=== PATIENT | male | born 1990 | race Caucasian/White ===

== ENCOUNTER 2016-11-17 01:29 | Observation (INO) ==
[2016-11-17] MEDS ORDERED: Midazolam HCl 4 MG/2 ML Oral Syringe PO ONE (03:02)
[2016-11-17 03:19] LABS: Bilirubin,Urine Negative (Negative); Blood,Urine Small (Negative); Clarity,Urine Clear (Clear); Color,Urine Yellow (Yellow); Glucose,Urine (UA) Normal (Normal); Ketones,Urine 15 mg/dL (Negative); Leukocyte Esterase,Urine Negative (Negative); Nitrite,Urine Negative (Negative); Protein,Urine Negative (Neg-Trace); Specific Gravity,Urine 1.025 (1.010-1.025); Urobilinogen,Urine Normal (Normal)
[2016-11-17 03:21] LABS: Bacteria,Urine None Seen per hpf (None-Few); Hyaline Casts,Urine None Seen per lpf (None-Few); Squamous Epithelial Cell,Urine Many per lpf (None-Few); WBC,Urine 0-3 per hpf (0-3)
[2016-11-17 03:26] LABS: Amphetamine Screen,Urine Positive ng/mL (Cutoff=1000); Barbiturate Screen,Urine Negative ng/mL (Cutoff=200); Benzodiazepines Screen,Urine Negative ng/mL (Cutoff=200); Cannabinoid Screen,Urine Positive ng/mL (Cutoff = 50); Cocaine Screen,Urine Negative ng/mL (Cutoff= 300); Opiate Screen,Urine Negative ng/mL (Cutoff=300); Phencyclidine Screen,Urine Negative ng/mL (Cutoff=25)
[2016-11-17 03:55] LABS: Basophils % 0.5 %; Eosinophils % 0.3 %; Hematocrit 41.6 % (37.5-50.1); Hemoglobin 13.4 g/dL (12.9-16.9); Immature Granulocytes % 0.3 % (0-4); Lymphocytes % 30.7 %; Mean Corpuscular HGB Conc 32.2 g/dL (31.6-35.5); Mean Corpuscular Hemoglobin 27.3 pg (28.0-33.3); Mean Corpuscular Volume 84.7 fL (83.0-100.0); Mean Platelet Volume 9.9 fL (9.4-12.4); Monocytes # 0.6 K/mcL (0.0-1.3); Monocytes % 8.5 %; Neutrophils # 3.9 K/mcL (1.6-8.9); Platelet Count 276 K/mcL (140-400); Red Blood Count 4.91 M/mcL (4.19-5.50); Red Cell Distribution Width 14.2 % (11.5-14.5); Segmented Neutrophils % 59.7 %
[2016-11-17 04:14] LABS: BUN/Creatinine Ratio 12 (6-26); Blood Urea Nitrogen 14 mg/dL (8-26); Calcium 9.6 mg/dL (8.6-10.8); Carbon Dioxide 25 mEq/L (19-29); Chloride 103 mEq/L (98-109); Glucose 214 mg/dL (70-99); Osmolality,Calculated 293 (280-300); Potassium 3.8 mEq/L (3.5-4.5); Sodium 138 mEq/L (136-145); eGFR For African Americans > 60 (> 60); eGFR For Non-African Americans > 60 (> 60)
[2016-11-17 04:16] LABS: Acetaminophen < 1.0 mcg/mL (10-30); Ethanol < 10 mg/dL (0-10); Salicylate < 5.0 mg/dL (15-30)
--- NOTE | 2016-11-17 06:13 | Emergency Department Note ---
Disposition Clinical Impression: Homicidal ideation, Medical clearance for psychiatric admission Psychosis Qualifiers: Psychosis type: other Qualified Code(s): F28 - Other psychotic disorder not due to a substance or known physiological condition Disposition: Transfer Psychiatric Hosp Condition: Fair Referrals: NO,PCP [Primary Care Provider] - Forms: ED Satisfaction Letter, Work/School Release General Adult HPI - General Chief complaint: ED General Medical Stated complaint: Smoked weed, now is "Trippin" Time Seen by Provider: 11/17/16 02:25 Source: EMS Limitations: no limitations Nursing Notes Reviewed: Yes Vital Signs Reviewed: Yes - History of Present Illness HPI Narrative: Patient here for evaluation of agitation and homicidal ideation. Patient states that he has smoked weed and then methamphetamines. Patient states that he is "tripping". Patient feels paranoid and states that they are out to get him. He is about to "mess things up" before they get to him. He feels that they are out to hurt him and his family. He is going to kill them before he gets injured. Pain Scale: 0 - Related Data Home Medications Medication Instructions Recorded Confirmed Buprenorphine HCl/Naloxone HCl 1 each SL 04/18/16 [Suboxone 2 mg-0.5 mg Sl Film] Gabapentin [Neurontin] 300 mg PO TID 04/18/16 04/18/16 HydrOXYzine Pamoate [Vistaril] 50 mg PO 04/18/16 TraZODone 100 mg PO HS 04/18/16 04/18/16 Allergies Allergy/AdvReac Type Severity Reaction Status Date / Time Penicillins Allergy Rash Verified 11/17/16 01:44 Review of Systems: CONSTITUTIONAL: No weight loss, fever, chills, weakness or fatigue. HEENT: Eyes: No visual changes. Ears, Nose, Throat: No hearing loss, difficulty talking or unable to swallow. SKIN: No rash or itching. CARDIOVASCULAR: No chest pain, chest pressure or chest discomfort. No palpitations or edema. RESPIRATORY: No shortness of breath, cough or sputum. GASTROINTESTINAL: No anorexia, nausea, vomiting or diarrhea. No abdominal pain or blood. GENITOURINARY: No burning on urination or hematuria. NEUROLOGICAL: No headache, dizziness, syncope, paralysis, ataxia, numbness or tingling in the extremities. No change in bowel or bladder control. MUSCULOSKELETAL: No muscle pain, back pain, joint pain or stiffness. Psych: Agitated, homicidal ideation Past Medical History - Past Medical History Medical history: Reports: asthma, other Surgical history: Reports: no surgical history Psychiatric history: Reports: previous psychiatric hospitalization - Social History Smoking Status: Current every day smoker Smokeless Tobacco Status: Yes Alcohol use: Reports: occasionally Drug use: Reports: cocaine, opiates, marijuana, methamphetamine, IVDU Physical Exam General appearance: NAD, conversant Eyes: anicteric sclerae, moist conjunctivae; no lid-lag; PERRL HENT: Atraumatic; oropharynx clear with moist mucous membranes Neck: Normal appearance; Trachea midline Chest: Symmetrical chest rise; No respiratory distress Extremities: No peripheral edema or extremity tenderness Skin: Normal temperature, turgor and texture; no rash, ulcers or subcutaneous nodules Psych: Agitated Neuro: Awake and alert and oriented 3 - General Limitations: no limitations General appearance: alert, anxious Course - Reevaluation(s) Reevaluation #1: Patient agitating staying he is going to "mess things up". Patient given 2 mg of Versed. Reevaluation #2: 1A called. Patient resting comfortably in bed. Vital Signs Temperature 97.8 F 11/17/16 01:39 Pulse Rate 82 11/17/16 01:39 Respiratory Rate 20 11/17/16 01:39 Blood Pressure 125/81 11/17/16 01:39 O2 Sat by Pulse Oximetry 96 11/17/16 01:39 Temperature 97.9 F 11/17/16 05:58 Pulse Rate 73 11/17/16 05:58 Respiratory Rate 14 11/17/16 05:58 Blood Pressure 111/61 11/17/16 05:58 O2 Sat by Pulse Oximetry 99 11/17/16 05:58 Oxygen Delivery Oxygen Delivery Room Air Medical Decision Making - Lab Data Result diagrams: 11/17/16 03:44 11/17/16 03:44 Lab Results 11/17/16 11/17/16 11/17/16 Range/Units 02:30 02:30 03:44 WBC 6.6 (4.3-11.1) K/mcL RBC 4.91 (4.19-5.50) M/mcL Hgb 13.4 (12.9-16.9) g/dL Hct 41.6 (37.5-50.1) % MCV 84.7 (83.0-100.0) fL MCH 27.3 L (28.0-33.3) pg MCHC 32.2 (31.6-35.5) g/dL RDW 14.2 (11.5-14.5) % Plt Count 276 (140-400) K/mcL MPV 9.9 (9.4-12.4) fL Immature Gran % 0.3 (0-4) % Seg Neutrophils % 59.7 % Lymphocytes % 30.7 % Monocytes % 8.5 % Eosinophils % 0.3 % Basophils % 0.5 % Neutrophils # 3.9 (1.6-8.9) K/mcL Lymphocytes # 2.0 (0.6-4.6) K/mcL Monocytes # 0.6 (0.0-1.3) K/mcL Eosinophils # 0.0 (0.0-0.6) K/mcL Basophils # 0.0 (0.0-0.2) K/mcL Sodium (136-145) mEq/L Potassium (3.5-4.5) mEq/L Chloride (98-109) mEq/L Carbon Dioxide (19-29) mEq/L BUN (8-26) mg/dL Creatinine (0.72-1.25) mg/dL Est GFR ( Amer) (> 60) Est GFR (Non-Af Amer) (> 60) BUN/Creatinine Ratio (6-26) Glucose (70-99) mg/dL Calculated Osmolality (280-300) Calcium (8.6-10.8) mg/dL Urine Color Yellow (Yellow) Urine Clarity Clear (Clear) Urine pH 6.0 (5.0-8.0) pH Units Ur Specific [place] 1.025 (1.010-1.025) Urine Protein Negative (Neg-Trace) mg/dL Urine Glucose (UA) Normal (Normal) mg/dL Urine Ketones 15 H (Negative) mg/dL Urine Blood Small H (Negative) Urine Nitrite Negative (Negative) Urine Bilirubin Negative (Negative) Urine Urobilinogen Normal (Normal) mg/dL Ur Leukocyte Esterase Negative (Negative) Urine Microscopic RBC 3-5 H (0-3) per hpf Urine Microscopic WBC 0-3 (0-3) per hpf Ur Squamous Epith Cells Many H (None-Few) per lpf Urine Bacteria None Seen (None-Few) per hpf Hyaline Casts None Seen (None-Few) per lpf Salicylates (15-30) mg/dL Urine Opiates Screen Negative (Xlvtzu=564) ng/mL Acetaminophen (10-30) mcg/mL Ur Barbiturates Screen Negative (Ihilxt=677) ng/mL Ur Phencyclidine Scrn Negative (Cutoff=25) ng/mL Ur Amphetamines Screen Positive H (Bhkzyt=1927) ng/mL U Benzodiazepines Scrn Negative (Xpgpjr=189) ng/mL Urine Cocaine Screen Negative (Cutoff= 300) ng/mL U Marijuana (THC) Screen Positive H (Cutoff = 50) ng/mL Ethyl Alcohol (0-10) mg/dL 11/17/16 Range/Units 03:44 WBC (4.3-11.1) K/mcL RBC (4.19-5.50) M/mcL Hgb (12.9-16.9) g/dL Hct (37.5-50.1) % MCV (83.0-100.0) fL MCH (28.0-33.3) pg MCHC (31.6-35.5) g/dL RDW (11.5-14.5) % Plt Count (140-400) K/mcL MPV (9.4-12.4) fL Immature Gran % (0-4) % Seg Neutrophils % % Lymphocytes % % Monocytes % % Eosinophils % % Basophils % % Neutrophils # (1.6-8.9) K/mcL Lymphocytes # (0.6-4.6) K/mcL Monocytes # (0.0-1.3) K/mcL Eosinophils # (0.0-0.6) K/mcL Basophils # (0.0-0.2) K/mcL Sodium 138 (136-145) mEq/L Potassium 3.8 (3.5-4.5) mEq/L Chloride 103 (98-109) mEq/L Carbon Dioxide 25 (19-29) mEq/L BUN 14 (8-26) mg/dL Creatinine 1.15 (0.72-1.25) mg/dL Est GFR ( Amer) > 60 (> 60) Est GFR (Non-Af Amer) > 60 (> 60) BUN/Creatinine Ratio 12 (6-26) Glucose 214 H (70-99) mg/dL Calculated Osmolality 293 (280-300) Calcium 9.6 (8.6-10.8) mg/dL Urine Color (Yellow) Urine Clarity (Clear) Urine pH (5.0-8.0) pH Units Ur Specific [place] (1.010-1.025) Urine Protein (Neg-Trace) mg/dL Urine Glucose (UA) (Normal) mg/dL Urine Ketones (Negative) mg/dL Urine Blood (Negative) Urine Nitrite (Negative) Urine Bilirubin (Negative) Urine Urobilinogen (Normal) mg/dL Ur Leukocyte Esterase (Negative) Urine Microscopic RBC (0-3) per hpf Urine Microscopic WBC (0-3) per hpf Ur Squamous Epith Cells (None-Few) per lpf Urine Bacteria (None-Few) per hpf Hyaline Casts (None-Few) per lpf Salicylates < 5.0 L (15-30) mg/dL Urine Opiates Screen (Hwifih=678) ng/mL Acetaminophen < 1.0 L (10-30) mcg/mL Ur Barbiturates Screen (Avdtia=309) ng/mL Ur Phencyclidine Scrn (Cutoff=25) ng/mL Ur Amphetamines Screen (Ymbosh=5226) ng/mL U Benzodiazepines Scrn (Mdsqsa=286) ng/mL Urine Cocaine Screen (Cutoff= 300) ng/mL U Marijuana (THC) Screen (Cutoff = 50) ng/mL Ethyl Alcohol < 10 (0-10) mg/dL Attestation Statement - Attestation Attestation: I personally interviewed and examined this patient and my medical decision- making was reviewed with the ED Resident Physician, Dr. Lindsey. I agree with the documented findings, disposition and treatment plan as described except to the extent set forth below. Pt with a history of polysubstance abuse who presents to the emergency department today with agitation and homicidal ideation. Patient used meth and smoked weed prior to arrival to the ED. Patient was mildly agitated on arrival and we did administer oral sedation. Vital signs are stable. Patient denies any physical complaints. I agree with physical exam findings as documented. Labs were obtained and patient was medically cleared for psychiatric evaluation by [facility]. They are currently at bedside evaluating the patient. Decided to admit the patient for further psychiatric evaluation and treatment. Patient was placed on a psych cold and a pink slip will be signed and placed on the chart.
[2016-11-17] MEDS ORDERED: *HR* LORazepam 1 MG TABLET PO ONE (07:55)
[2016-11-17] MEDS ORDERED: traZODone 50 MG TABLET PO PRN (14:09)
[2016-11-17] MEDS ORDERED: *HR* LORazepam 2 MG/ML VIAL IM PRN (14:09)
[2016-11-17] MEDS ORDERED: Mag Hydrox/Al Hydrox/Simeth 30 ML UDC PO PRN (14:09)
[2016-11-17] MEDS ORDERED: Haloperidol Lactate 5 MG/ML VIAL IM PRN (14:09)
[2016-11-17] MEDS ORDERED: MOM Conc 10 ML UD.LIQ PO PRN (14:09)
[2016-11-17] MEDS ORDERED: Ibuprofen 400 MG TABLET PO PRN (14:09)
[2016-11-17] MEDS: *HR* LORazepam 1 MG TABLET PO PRN ×2 (16:01→20:43)
[2016-11-18 10:19] VITALS: BP 125/72
--- NOTE | 2016-11-18 10:54 | Psychiatry History & Physical ---
Date of Encounter: 11/18/16 Time of Encounter: 10:30 History of Present Illness Medicare Admission Attestation: For traditional Medicare patients the provided hospital inpatient services are reasonable and necessary and in the case of services not specified as inpatient -only under 42 CFR 419.22 (n), that they are appropriately provided as inpatient services in accordance 42 CFR 412.3. For Critical Access Hospital the patient may reasonably be expected to be discharged or transferred to a hospital within 96 hours after admission to the Critical Access Hospital. Admitted From: Emergency Dept History of Present Illness: Mr. Conrad is a 26 year old male Past Med Surg Social Fam HX - Past Medical History Medical history: asthma, other - Past Surgical History Surgical History: no surgical history - Social History Smoking Status: Current every day smoker Smokeless Tobacco Status: Yes Alcohol use: occasionally Drug use: cocaine, opiates, marijuana, methamphetamine, IVDU Medications & Allergies Buprenorphine HCl/Naloxone HCl [Suboxone 2 mg-0.5 mg Sl Film] 1 each SL [History] Gabapentin [Neurontin] 300 mg PO TID 04/18/16 [History] HydrOXYzine Pamoate [Vistaril] 50 mg PO 04/18/16 [History] TraZODone 100 mg PO HS 04/18/16 [History] Allergies Penicillins Allergy (Verified 11/17/16 01:44) Rash Results - Vital Signs Vital signs: Temp Pulse Resp BP Pulse Ox 97.8 F 69 18 125/72 99 11/18/16 09:00 11/18/16 09:00 11/18/16 09:00 11/18/16 09:00 11/17/16 05:58 - Labs Labs: Laboratory Last Values WBC 6.6 K/mcL (4.3-11.1) 11/17/16 03:44 RBC 4.91 M/mcL (4.19-5.50) 11/17/16 03:44 Hgb 13.4 g/dL (12.9-16.9) 11/17/16 03:44 Hct 41.6 % (37.5-50.1) 11/17/16 03:44 MCV 84.7 fL (83.0-100.0) 11/17/16 03:44 MCH 27.3 pg (28.0-33.3) L 11/17/16 03:44 MCHC 32.2 g/dL (31.6-35.5) 11/17/16 03:44 RDW 14.2 % (11.5-14.5) 11/17/16 03:44 Plt Count 276 K/mcL (140-400) 11/17/16 03:44 MPV 9.9 fL (9.4-12.4) 11/17/16 03:44 Immature Gran % 0.3 % (0-4) 11/17/16 03:44 Seg Neutrophils % 59.7 % 11/17/16 03:44 Lymphocytes % 30.7 % 11/17/16 03:44 Monocytes % 8.5 % 11/17/16 03:44 Eosinophils % 0.3 % 11/17/16 03:44 Basophils % 0.5 % 11/17/16 03:44 Neutrophils # 3.9 K/mcL (1.6-8.9) 11/17/16 03:44 Lymphocytes # 2.0 K/mcL (0.6-4.6) 11/17/16 03:44 Monocytes # 0.6 K/mcL (0.0-1.3) 11/17/16 03:44 Eosinophils # 0.0 K/mcL (0.0-0.6) 11/17/16 03:44 Basophils # 0.0 K/mcL (0.0-0.2) 11/17/16 03:44 Sodium 138 mEq/L (136-145) 11/17/16 03:44 Potassium 3.8 mEq/L (3.5-4.5) 11/17/16 03:44 Chloride 103 mEq/L (98-109) 11/17/16 03:44 Carbon Dioxide 25 mEq/L (19-29) 11/17/16 03:44 BUN 14 mg/dL (8-26) 11/17/16 03:44 Creatinine 1.15 mg/dL (0.72-1.25) 11/17/16 03:44 Est GFR ( Amer) > 60 (> 60) 11/17/16 03:44 Est GFR (Non-Af Amer) > 60 (> 60) 11/17/16 03:44 BUN/Creatinine Ratio 12 (6-26) 11/17/16 03:44 Glucose 214 mg/dL (70-99) H 11/17/16 03:44 Calculated Osmolality 293 (280-300) 11/17/16 03:44 Calcium 9.6 mg/dL (8.6-10.8) 11/17/16 03:44 Urine Color Yellow (Yellow) 11/17/16 02:30 Urine Clarity Clear (Clear) 11/17/16 02:30 Urine pH 6.0 pH Units (5.0-8.0) 11/17/16 02:30 Ur Specific [place] 1.025 (1.010-1.025) 11/17/16 02:30 Urine Protein Negative mg/dL (Neg-Trace) 11/17/16 02:30 Urine Glucose (UA) Normal mg/dL (Normal) 11/17/16 02:30 Urine Ketones 15 mg/dL (Negative) H 11/17/16 02:30 Urine Blood Small (Negative) H 11/17/16 02:30 Urine Nitrite Negative (Negative) 11/17/16 02:30 Urine Bilirubin Negative (Negative) 11/17/16 02:30 Urine Urobilinogen Normal mg/dL (Normal) 11/17/16 02:30 Ur Leukocyte Esterase Negative (Negative) 11/17/16 02:30 Urine Microscopic RBC 3-5 per hpf (0-3) H 11/17/16 02:30 Urine Microscopic WBC 0-3 per hpf (0-3) 11/17/16 02:30 Ur Squamous Epith Cells Many per lpf (None-Few) H 11/17/16 02:30 Urine Bacteria None Seen per hpf (None-Few) 11/17/16 02:30 Hyaline Casts None Seen per lpf (None-Few) 11/17/16 02:30 Salicylates < 5.0 mg/dL (15-30) L 11/17/16 03:44 Urine Opiates Screen Negative ng/mL (Jmelvi=774) 11/17/16 02:30 Acetaminophen < 1.0 mcg/mL (10-30) L 11/17/16 03:44 Ur Barbiturates Screen Negative ng/mL (Vvjcmq=619) 11/17/16 02:30 Ur Phencyclidine Scrn Negative ng/mL (Cutoff=25) 11/17/16 02:30 Ur Amphetamines Screen Positive ng/mL (Ngvphe=9391) H 11/17/16 02:30 U Benzodiazepines Scrn Negative ng/mL (Xgjosd=588) 11/17/16 02:30 Urine Cocaine Screen Negative ng/mL (Cutoff= 300) 11/17/16 02:30 U Marijuana (THC) Screen Positive ng/mL (Cutoff = 50) H 11/17/16 02:30 Ethyl Alcohol < 10 mg/dL (0-10) 11/17/16 03:44
--- NOTE | 2016-11-18 11:02 | Discharge Summary ---
Date of Encounter: 11/18/16 Time of Encounter: 10:20 History of Present Illness Chief complaint: Suicidal ideation Admitted From: Emergency Dept History of Present Illness: Mr. Conrad is a 26 year old male admitted from the emergency department on observation status for suicidal ideation. Patient presented complaining of poor sleep and irritability and auditory hallucinations and suicidal ideation, he admits to using methamphetamine and marijuana and alcohol and was hearing voices and could not sleep. UDS was positive for amphetamine and THC. Patient had long history of substance abuse previous admission with somewhat similar presentation and noncompliance with follow-up appointments or outpatient treatment. Patient was restless, agitated, he was medicated in the emergency department and was able to sleep. Past Med Surg Social Fam HX - Past Medical History Medical history: asthma, other - Past Psychiatric History Psychiatric history: Reports: schizophrenia, previous psychiatric hospitalization - Past Surgical History Surgical History: no surgical history - Social History Smoking Status: Current every day smoker Smokeless Tobacco Status: Yes Alcohol use: occasionally Drug use: cocaine, opiates, marijuana, methamphetamine, IVDU Medications - Discharge Medications Prescriptions: Gabapentin [Neurontin] 300 mg PO BID #60 capsule HydrOXYzine Pamoate [Vistaril] 50 mg PO BID #60 capsule TraZODone 100 mg PO HS 04/18/16 [History] Gabapentin [Neurontin] 300 mg PO BID #60 capsule 11/18/16 [Rx] HydrOXYzine Pamoate [Vistaril] 50 mg PO BID #60 capsule 11/18/16 [Rx] Allergies Penicillins Allergy (Verified 11/17/16 01:44) Rash Review of Systems Psychiatric: Reports: suicidal ideation, auditory hallucinations Mental Status Exam - Mental Status Exam Patient orientation: Yes Person, Yes Time, Yes Place Level of alertness: Alert Patient appearance: Appropriate, Well Groomed, Thin Behavior: cooperative, nervous, anxious, restless, suspicious Psychomotor activity: Increased Eye contact: Fleeting Contact Mood description: Anxious, Labile, Irritable Affect description: congruent with mood, labile, dysphoric Speech pattern: Normal rate, Normal rhythm, Normal tone Speech Volume: Normal Thought process: Linear, Goal Oriented Thought Content: No Suicidal ideation, No Homicidal ideation, No Overt delusions Perceptual Disturbances: No Auditory hallucinations, No Visual hallucinations Judgment: Limited Insight: Partial Results - Vital Signs Vital signs: Temp Pulse Resp BP Pulse Ox 97.8 F 69 18 125/72 99 11/18/16 09:00 11/18/16 09:00 11/18/16 09:00 11/18/16 09:00 11/17/16 05:58 - Labs Labs: Laboratory Last Values WBC 6.6 K/mcL (4.3-11.1) 11/17/16 03:44 RBC 4.91 M/mcL (4.19-5.50) 11/17/16 03:44 Hgb 13.4 g/dL (12.9-16.9) 11/17/16 03:44 Hct 41.6 % (37.5-50.1) 11/17/16 03:44 MCV 84.7 fL (83.0-100.0) 11/17/16 03:44 MCH 27.3 pg (28.0-33.3) L 11/17/16 03:44 MCHC 32.2 g/dL (31.6-35.5) 11/17/16 03:44 RDW 14.2 % (11.5-14.5) 11/17/16 03:44 Plt Count 276 K/mcL (140-400) 11/17/16 03:44 MPV 9.9 fL (9.4-12.4) 11/17/16 03:44 Immature Gran % 0.3 % (0-4) 11/17/16 03:44 Seg Neutrophils % 59.7 % 11/17/16 03:44 Lymphocytes % 30.7 % 11/17/16 03:44 Monocytes % 8.5 % 11/17/16 03:44 Eosinophils % 0.3 % 11/17/16 03:44 Basophils % 0.5 % 11/17/16 03:44 Neutrophils # 3.9 K/mcL (1.6-8.9) 11/17/16 03:44 Lymphocytes # 2.0 K/mcL (0.6-4.6) 11/17/16 03:44 Monocytes # 0.6 K/mcL (0.0-1.3) 11/17/16 03:44 Eosinophils # 0.0 K/mcL (0.0-0.6) 11/17/16 03:44 Basophils # 0.0 K/mcL (0.0-0.2) 11/17/16 03:44 Sodium 138 mEq/L (136-145) 11/17/16 03:44 Potassium 3.8 mEq/L (3.5-4.5) 11/17/16 03:44 Chloride 103 mEq/L (98-109) 11/17/16 03:44 Carbon Dioxide 25 mEq/L (19-29) 11/17/16 03:44 BUN 14 mg/dL (8-26) 11/17/16 03:44 Creatinine 1.15 mg/dL (0.72-1.25) 11/17/16 03:44 Est GFR ( Amer) > 60 (> 60) 11/17/16 03:44 Est GFR (Non-Af Amer) > 60 (> 60) 11/17/16 03:44 BUN/Creatinine Ratio 12 (6-26) 11/17/16 03:44 Glucose 214 mg/dL (70-99) H 11/17/16 03:44 Calculated Osmolality 293 (280-300) 11/17/16 03:44 Calcium 9.6 mg/dL (8.6-10.8) 11/17/16 03:44 Urine Color Yellow (Yellow) 11/17/16 02:30 Urine Clarity Clear (Clear) 11/17/16 02:30 Urine pH 6.0 pH Units (5.0-8.0) 11/17/16 02:30 Ur Specific [place] 1.025 (1.010-1.025) 11/17/16 02:30 Urine Protein Negative mg/dL (Neg-Trace) 11/17/16 02:30 Urine Glucose (UA) Normal mg/dL (Normal) 11/17/16 02:30 Urine Ketones 15 mg/dL (Negative) H 11/17/16 02:30 Urine Blood Small (Negative) H 11/17/16 02:30 Urine Nitrite Negative (Negative) 11/17/16 02:30 Urine Bilirubin Negative (Negative) 11/17/16 02:30 Urine Urobilinogen Normal mg/dL (Normal) 11/17/16 02:30 Ur Leukocyte Esterase Negative (Negative) 11/17/16 02:30 Urine Microscopic RBC 3-5 per hpf (0-3) H 11/17/16 02:30 Urine Microscopic WBC 0-3 per hpf (0-3) 11/17/16 02:30 Ur Squamous Epith Cells Many per lpf (None-Few) H 11/17/16 02:30 Urine Bacteria None Seen per hpf (None-Few) 11/17/16 02:30 Hyaline Casts None Seen per lpf (None-Few) 11/17/16 02:30 Salicylates < 5.0 mg/dL (15-30) L 11/17/16 03:44 Urine Opiates Screen Negative ng/mL (Wnwkgv=127) 11/17/16 02:30 Acetaminophen < 1.0 mcg/mL (10-30) L 11/17/16 03:44 Ur Barbiturates Screen Negative ng/mL (Eswxem=123) 11/17/16 02:30 Ur Phencyclidine Scrn Negative ng/mL (Cutoff=25) 11/17/16 02:30 Ur Amphetamines Screen Positive ng/mL (Ixrlnr=2004) H 11/17/16 02:30 U Benzodiazepines Scrn Negative ng/mL (Jhkfmr=009) 11/17/16 02:30 Urine Cocaine Screen Negative ng/mL (Cutoff= 300) 11/17/16 02:30 U Marijuana (THC) Screen Positive ng/mL (Cutoff = 50) H 11/17/16 02:30 Ethyl Alcohol < 10 mg/dL (0-10) 11/17/16 03:44 Diagnosis - Discharge Diagnosis (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 Conrad is a 26 year old male admitted from the emergency department for suicidal ideation. Patient was reporting insomnia auditory hallucinations and paranoia after using methamphetamine and THC. On the unit he was given when necessary medication to help him sleep. He was started on his medication including gabapentin and hydroxyzine. Prior to discharge patient denied any suicidal ideation or auditory hallucinations he was advised to stay sober from drugs and take his medication and follow up and his outpatient clinic. Patient requested discharge and he was discharged in stable condition. And discharge plans as per social work. - Time Spent with Patient Total time spent providing and/or coordinating discharge services: Greater than 30 minutes Procedures - Procedures Procedures: Medication Management, Crisis Stabilization, Supportive Therapy, Group Therapy, Psychoeducational Therapy Quality - Multiple Antipsychotics Patient discharged on 2 or more antipsychotic medications: No
== END 2016-11-18 12:40 | disposition home or self-care (01) ==
LOC: EMEROO 01:29 → INTOOBSV 13:22 → 1ANU 13:22
PROVIDERS: ADMIT Psychiatry & Neurology Psychiatry; ATTEND Psychiatry & Neurology Psychiatry

== ENCOUNTER 2017-01-23 02:51 | Inpatient (IN) ==
--- NOTE | 2017-01-23 03:31 | Emergency Department Note ---
Disposition Clinical Impression: Acute psychosis Disposition: Admitted As Inpatient Condition: Good Psych HPI - General Chief Complaint: ED Psychiatric Symptoms Stated Complaint: Haley Mnedoza Time Seen by Provider: 01/23/17 03:18 Source: patient Mode of arrival: ambulatory Nursing Notes Reviewed: Yes Vital Signs Reviewed: Yes - History of Present Illness HPI Narrative: 26-year-old male with history for bipolar disorder and schizophrenia who presents with a chief complaint of "I'm going to have a mental breakdown." The patient states that he psychiatrist and counseling a long time. He is prescribed medications for bipolar disorder and schizophrenia which he does not know the names of. He has not taken these medications in the past 6 days. The patient states he has been in town trying to work and his medications are at his aunts house. Patient also states that these medications make him feel like a zombie. He has been having auditory and visual hallucinations. He also feels depressed all the time. He feels like his mind is not clear and he is going to have a mental breakdown. The patient's family advised him to go to the emergency department to get help. - Related Data Home Medications Medication Instructions Recorded Confirmed TraZODone 100 mg PO HS 04/18/16 04/18/16 Previous Rx's Medication Instructions Recorded Gabapentin [Neurontin] 300 mg PO BID #60 capsule 11/18/16 HydrOXYzine Pamoate [Vistaril] 50 mg PO BID #60 capsule 11/18/16 Allergies Allergy/AdvReac Type Severity Reaction Status Date / Time Penicillins Allergy Rash Verified 11/17/16 01:44 Review of Systems: CONSTITUTIONAL: No weight loss, fever, chills, weakness or fatigue. HEENT: Eyes: No visual changes. Ears, Nose, Throat: No hearing loss, difficulty talking or unable to swallow. SKIN: No rash or itching. CARDIOVASCULAR: No chest pain, chest pressure or chest discomfort. No palpitations or edema. RESPIRATORY: No shortness of breath, cough or sputum. GASTROINTESTINAL: No anorexia, nausea, vomiting or diarrhea. No abdominal pain or blood. GENITOURINARY: No burning on urination or hematuria. NEUROLOGICAL: No headache, dizziness, syncope, paralysis, ataxia, numbness or tingling in the extremities. No change in bowel or bladder control. MUSCULOSKELETAL: No muscle pain, back pain, joint pain or stiffness. Psychiatric: Reports: anxiety, depression, auditory hallucinations, visual hallucinations. Denies: suicidal thoughts, homicidal thoughts Past Medical History - Past Medical History Medical history: Reports: asthma, other Surgical history: Reports: no surgical history Psychiatric history: Reports: schizophrenia, previous psychiatric hospitalization - Social History Smoking Status: Current every day smoker Smokeless Tobacco Status: Yes Alcohol use: Reports: occasionally Drug use: Reports: cocaine, opiates, marijuana, methamphetamine, IV Drug Use Physical Exam General appearance: NAD, conversant Eyes: anicteric sclerae, moist conjunctivae; PERRL HENT: Atraumatic; oropharynx clear with moist mucous membranes and no mucosal ulcerations Neck: Normal inspection; Trachea midline Lungs: Mild wheeze to the right lung base CV: RRR, no MRGs Abdomen: Soft, non-tender; no rebound or gaurding Extremities: No peripheral edema or extremity lymphadenopathy Skin: Normal temperature; no rash, ulcers or lesions Psych: Agitated with visual and auditory hallucinations on exam - General Limitations: no limitations General appearance: alert, in no apparent distress Course - Reevaluation(s) Reevaluation #1: Patient accepted for admission by 1A. Vital Signs Temperature 97.5 F L 01/23/17 02:52 Pulse Rate 69 01/23/17 02:52 Respiratory Rate 18 01/23/17 02:52 Blood Pressure 141/87 01/23/17 02:52 O2 Sat by Pulse Oximetry 99 01/23/17 02:52 Temperature 97.9 F 01/23/17 06:56 Pulse Rate 61 01/23/17 06:56 Respiratory Rate 14 01/23/17 06:56 Blood Pressure 97/49 01/23/17 06:56 O2 Sat by Pulse Oximetry 99 01/23/17 02:52 Oxygen Delivery Oxygen Delivery Room Air Psych - Lab Data Result diagrams: 01/23/17 03:34 01/23/17 03:34 Lab Results 01/23/17 01/23/17 01/23/17 Range/Units 03:34 03:34 03:42 WBC 13.2 H (4.3-11.1) K/mcL RBC 5.74 H (4.19-5.50) M/mcL Hgb 15.3 (12.9-16.9) g/dL Hct 46.6 (37.5-50.1) % MCV 81.2 L (83.0-100.0) fL MCH 26.7 L (28.0-33.3) pg MCHC 32.8 (31.6-35.5) g/dL RDW 14.5 (11.5-14.5) % Plt Count 381 (140-400) K/mcL MPV 9.2 L (9.4-12.4) fL Immature Gran % 0.2 (0-4) % Seg Neutrophils % 74.7 % Lymphocytes % 18.7 % Monocytes % 5.8 % Eosinophils % 0.3 % Basophils % 0.3 % Neutrophils # 9.9 H (1.6-8.9) K/mcL Lymphocytes # 2.5 (0.6-4.6) K/mcL Monocytes # 0.8 (0.0-1.3) K/mcL Eosinophils # 0.0 (0.0-0.6) K/mcL Basophils # 0.0 (0.0-0.2) K/mcL Sodium 135 L (136-145) mEq/L Potassium 4.4 (3.5-4.5) mEq/L Chloride 99 (98-109) mEq/L Carbon Dioxide 23 (19-29) mEq/L BUN 14 (8-26) mg/dL Creatinine 1.16 (0.72-1.25) mg/dL Est GFR ( Amer) > 60 (> 60) Est GFR (Non-Af Amer) > 60 (> 60) BUN/Creatinine Ratio 12 (6-26) Glucose 79 (70-99) mg/dL Calculated Osmolality 279 L (280-300) Calcium 10.7 (8.6-10.8) mg/dL Urine Color Yellow (Yellow) Urine Clarity Clear (Clear) Urine pH 6.5 (5.0-8.0) pH Units Ur Specific [place] 1.017 (1.010-1.025) Urine Protein Negative (Neg-Trace) mg/dL Urine Glucose (UA) Normal (Normal) mg/dL Urine Ketones 15 H (Negative) mg/dL Urine Blood Trace H (Negative) Urine Nitrite Negative (Negative) Urine Bilirubin Negative (Negative) Urine Urobilinogen Normal (Normal) mg/dL Ur Leukocyte Esterase Negative (Negative) Urine Microscopic RBC 0-3 (0-3) per hpf Urine Microscopic WBC 0-3 (0-3) per hpf Ur Squamous Epith Cells Few (None-Few) per lpf Urine Bacteria None Seen (None-Few) per hpf Hyaline Casts None Seen (None-Few) per lpf Salicylates < 5.0 L (15-30) mg/dL Urine Opiates Screen (Qnkzbi=833) ng/mL Acetaminophen < 1.0 L (10-30) mcg/mL Ur Barbiturates Screen (Znwvfb=002) ng/mL Ur Phencyclidine Scrn (Cutoff=25) ng/mL Ur Amphetamines Screen (Rmtzhf=3650) ng/mL U Benzodiazepines Scrn (Xfafih=414) ng/mL Urine Cocaine Screen (Cutoff= 300) ng/mL U Marijuana (THC) Screen (Cutoff = 50) ng/mL Ethyl Alcohol < 10 (0-10) mg/dL 01/23/17 Range/Units 03:42 WBC (4.3-11.1) K/mcL RBC (4.19-5.50) M/mcL Hgb (12.9-16.9) g/dL Hct (37.5-50.1) % MCV (83.0-100.0) fL MCH (28.0-33.3) pg MCHC (31.6-35.5) g/dL RDW (11.5-14.5) % Plt Count (140-400) K/mcL MPV (9.4-12.4) fL Immature Gran % (0-4) % Seg Neutrophils % % Lymphocytes % % Monocytes % % Eosinophils % % Basophils % % Neutrophils # (1.6-8.9) K/mcL Lymphocytes # (0.6-4.6) K/mcL Monocytes # (0.0-1.3) K/mcL Eosinophils # (0.0-0.6) K/mcL Basophils # (0.0-0.2) K/mcL Sodium (136-145) mEq/L Potassium (3.5-4.5) mEq/L Chloride (98-109) mEq/L Carbon Dioxide (19-29) mEq/L BUN (8-26) mg/dL Creatinine (0.72-1.25) mg/dL Est GFR ( Amer) (> 60) Est GFR (Non-Af Amer) (> 60) BUN/Creatinine Ratio (6-26) Glucose (70-99) mg/dL Calculated Osmolality (280-300) Calcium (8.6-10.8) mg/dL Urine Color (Yellow) Urine Clarity (Clear) Urine pH (5.0-8.0) pH Units Ur Specific [place] (1.010-1.025) Urine Protein (Neg-Trace) mg/dL Urine Glucose (UA) (Normal) mg/dL Urine Ketones (Negative) mg/dL Urine Blood (Negative) Urine Nitrite (Negative) Urine Bilirubin (Negative) Urine Urobilinogen (Normal) mg/dL Ur Leukocyte Esterase (Negative) Urine Microscopic RBC (0-3) per hpf Urine Microscopic WBC (0-3) per hpf Ur Squamous Epith Cells (None-Few) per lpf Urine Bacteria (None-Few) per hpf Hyaline Casts (None-Few) per lpf Salicylates (15-30) mg/dL Urine Opiates Screen Positive H (Ksgzfs=580) ng/mL Acetaminophen (10-30) mcg/mL Ur Barbiturates Screen Negative (Fcgobe=793) ng/mL Ur Phencyclidine Scrn Negative (Cutoff=25) ng/mL Ur Amphetamines Screen Positive H (Rnzlxo=8138) ng/mL U Benzodiazepines Scrn Negative (Mfpcaa=281) ng/mL Urine Cocaine Screen Positive H (Cutoff= 300) ng/mL U Marijuana (THC) Screen Negative (Cutoff = 50) ng/mL Ethyl Alcohol (0-10) mg/dL Psychiatric Medical Clearance - Medical Clearance Checklist Medical History: No Social History Section defined Current Vitals: Last Vital Signs Temp 97.9 F 01/23/17 06:56 Pulse 61 01/23/17 06:56 Resp 14 01/23/17 06:56 BP 97/49 01/23/17 06:56 Pulse Ox 99 01/23/17 02:52 Psychiatric Lab Panel: Drug Levels and Toxicity 01/23/17 01/23/17 03:34 03:42 Urine Opiates Screen Positive H Acetaminophen < 1.0 L Ur Barbiturates Screen Negative Ur Phencyclidine Scrn Negative Ur Amphetamines Screen Positive H U Benzodiazepines Scrn Negative Urine Cocaine Screen Positive H U Marijuana (THC) Screen Negative Ethyl Alcohol < 10 Abnormal Labs: Abnormal lab results WBC 13.2 K/mcL (4.3-11.1) H 01/23/17 03:34 RBC 5.74 M/mcL (4.19-5.50) H 01/23/17 03:34 MCV 81.2 fL (83.0-100.0) L 01/23/17 03:34 MCH 26.7 pg (28.0-33.3) L 01/23/17 03:34 MPV 9.2 fL (9.4-12.4) L 01/23/17 03:34 Neutrophils # 9.9 K/mcL (1.6-8.9) H 01/23/17 03:34 Sodium 135 mEq/L (136-145) L 01/23/17 03:34 Calculated Osmolality 279 (280-300) L 01/23/17 03:34 Urine Ketones 15 mg/dL (Negative) H 01/23/17 03:42 Urine Blood Trace (Negative) H 01/23/17 03:42 Salicylates < 5.0 mg/dL (15-30) L 01/23/17 03:34 Urine Opiates Screen Positive ng/mL (Ulproc=039) H 01/23/17 03:42 Acetaminophen < 1.0 mcg/mL (10-30) L 01/23/17 03:34 Ur Amphetamines Screen Positive ng/mL (Klszeu=1154) H 01/23/17 03:42 Urine Cocaine Screen Positive ng/mL (Cutoff= 300) H 01/23/17 03:42 Attestation Statement - Attestation Attestation: I, Prabhakar Toure MD, personally evaluated this patient and discussed their management with the resident physician. I reviewed the resident's note and agree with the documented findings, medical decision making, and plan of care. 26-year-old male with history of bipolar disorder and schizophrenia presents to the emergency department complaining of auditory and visual hallucinations. Patient appears very paranoid thinks people are trying to kill him. He denies any suicidal or homicidal ideation. Patient thinks that when we bolivar his blood be injected something into his vein and now states that his heart is pounding and feels like it is going to explode. On examination patient is a well-developed well-nourished male in no acute distress. There is no cyanosis or diaphoresis. Patient is alert but does appear to be hallucinating. Chest is nontender to palpation. Breath sounds are clear and equal bilaterally. Heart regular rate and rhythm. Abdomen soft and nontender with normal bowel sounds. No gross focal neurological deficits. Labs reviewed. [facility] psychiatry service consulted to evaluate patient. Patient was seen and evaluated in the emergency department and is being admitted to the [address] psychiatry service.
[2017-01-23 03:40] LABS: Basophils % 0.3 %; Eosinophils % 0.3 %; Hematocrit 46.6 % (37.5-50.1); Hemoglobin 15.3 g/dL (12.9-16.9); Immature Granulocytes % 0.2 % (0-4); Lymphocytes # 2.5 K/mcL (0.6-4.6); Lymphocytes % 18.7 %; Mean Corpuscular HGB Conc 32.8 g/dL (31.6-35.5); Mean Corpuscular Hemoglobin 26.7 pg (28.0-33.3); Mean Corpuscular Volume 81.2 fL (83.0-100.0); Mean Platelet Volume 9.2 fL (9.4-12.4); Monocytes # 0.8 K/mcL (0.0-1.3); Monocytes % 5.8 %; Neutrophils # 9.9 K/mcL (1.6-8.9); Platelet Count 381 K/mcL (140-400); Red Blood Count 5.74 M/mcL (4.19-5.50); Red Cell Distribution Width 14.5 % (11.5-14.5); Segmented Neutrophils % 74.7 %
[2017-01-23 03:53] LABS: BUN/Creatinine Ratio 12 (6-26); Blood Urea Nitrogen 14 mg/dL (8-26); Calcium 10.7 mg/dL (8.6-10.8); Carbon Dioxide 23 mEq/L (19-29); Chloride 99 mEq/L (98-109); Glucose 79 mg/dL (70-99); Osmolality,Calculated 279 (280-300); Potassium 4.4 mEq/L (3.5-4.5); Sodium 135 mEq/L (136-145); eGFR For African Americans > 60 (> 60); eGFR For Non-African Americans > 60 (> 60)
[2017-01-23 03:54] LABS: Bilirubin,Urine Negative (Negative); Blood,Urine Trace (Negative); Clarity,Urine Clear (Clear); Color,Urine Yellow (Yellow); Glucose,Urine (UA) Normal (Normal); Ketones,Urine 15 mg/dL (Negative); Leukocyte Esterase,Urine Negative (Negative); Nitrite,Urine Negative (Negative); PH,Urine 6.5 pH Units (5.0-8.0); Protein,Urine Negative (Neg-Trace); Specific Gravity,Urine 1.017 (1.010-1.025); Urobilinogen,Urine Normal (Normal)
[2017-01-23 03:54] LABS: Acetaminophen < 1.0 mcg/mL (10-30); Ethanol < 10 mg/dL (0-10); Salicylate < 5.0 mg/dL (15-30)
[2017-01-23 03:59] LABS: Bacteria,Urine None Seen per hpf (None-Few); Hyaline Casts,Urine None Seen per lpf (None-Few); RBC,Urine 0-3 per hpf (0-3); Squamous Epithelial Cell,Urine Few per lpf (None-Few); WBC,Urine 0-3 per hpf (0-3)
[2017-01-23 04:00] LABS: Amphetamine Screen,Urine Positive ng/mL (Cutoff=1000); Barbiturate Screen,Urine Negative ng/mL (Cutoff=200); Benzodiazepines Screen,Urine Negative ng/mL (Cutoff=200); Cannabinoid Screen,Urine Negative ng/mL (Cutoff = 50); Cocaine Screen,Urine Positive ng/mL (Cutoff= 300); Opiate Screen,Urine Positive ng/mL (Cutoff=300); Phencyclidine Screen,Urine Negative ng/mL (Cutoff=25)
[2017-01-23] MEDS ORDERED: Albuterol 2.5 MG/3 ML NEBULIZER IH ONE (04:03)
[2017-01-23] MEDS ORDERED: Ziprasidone 20 MG CAPSULE PO STA (04:10)
[2017-01-23] MEDS ORDERED: Acetaminophen 325 MG TABLET PO PRN (06:44)
[2017-01-23] MEDS ORDERED: hydrOXYzine pamoate 25 MG CAPSULE PO PRN (06:44)
[2017-01-23] MEDS ORDERED: *HR* LORazepam 1 MG TABLET PO PRN ×2 (06:44→06:56)
[2017-01-23] MEDS ORDERED: *HR* LORazepam 2 MG/ML VIAL IM PRN ×2 (06:44→06:58)
[2017-01-23] MEDS ORDERED: Mag Hydrox/Al Hydrox/Simeth 30 ML UDC PO PRN (06:44)
[2017-01-23] MEDS ORDERED: Haloperidol Lactate 5 MG/ML VIAL IM PRN ×2 (06:44→06:51)
--- NOTE | 2017-01-23 14:46 | Psychiatry History & Physical ---
Date of Encounter: 01/23/17 Time of Encounter: 12:50 History of Present Illness Patient Stated Chief Complaint: "I think I was seeing things." Medicare Admission Attestation: For traditional Medicare patients the provided hospital inpatient services are reasonable and necessary and in the case of services not specified as inpatient -only under 42 CFR 419.22 (n), that they are appropriately provided as inpatient services in accordance 42 CFR 412.3. For Critical Access Hospital the patient may reasonably be expected to be discharged or transferred to a hospital within 96 hours after admission to the Critical Access Hospital. Admitted From: Emergency Dept Plans for Post Hospital Care: Home History of Present Illness: Mr. Conrad is a 26 year old male with a history of polysubstance abuse including amphetamines, cocaine, marijuana, opiates and a history of psychosis presents to the hospital with hallucinations and bizarre behavior. He reported to the ER that he has been "off my psych meds." He was recently admitted to the hospital for psychosis that may have been drug-induced. She was provided with hydroxyzine and gabapentin during his last hospitalization. On interview, patient is confused but does admit to hallucinations. He has been sleeping since Geodon was provided in the emergency room. He is unable to report what happened prior to coming to the hospital except that he did use drugs. Still somewhat confused and sedated at this time. Her last hospitalization his psychosis cleared rather quickly. ER documentation reveals that patient reports a history of bipolar disorder and schizophrenia however, it is unclear if these diagnosis are correct or not. Past Med Surg Social Fam HX - Past Medical History Medical history: asthma, other - Past Psychiatric History Psychiatric history: Reports: previous psychiatric hospitalization, other ( Psychosis) Past psychiatric history details: Patient has previous admissions for psychosis mostly drug related. He is not compliant with outpatient treatment. He continues to use substances including methamphetamine, cocaine, marijuana and opiates. Family psychiatric history: Unknown Family History of Suicide: Unknown - Past Surgical History Surgical History: no surgical history - Social History Smoking Status: Current every day smoker Smokeless Tobacco Status: Yes Alcohol use: occasionally Drug use: cocaine, opiates, marijuana, methamphetamine, IV Drug Use Occupational status: unemployed Medications & Allergies TraZODone 100 mg PO HS 04/18/16 [History] Gabapentin [Neurontin] 300 mg PO BID #60 capsule 11/18/16 [Rx] HydrOXYzine Pamoate [Vistaril] 50 mg PO BID #60 capsule 11/18/16 [Rx] Allergies Penicillins Allergy (Verified 01/23/17 12:58) Hives Review of Systems Constitutional: Denies: fever, chills, weakness, weight change Eyes: Denies: eye pain, vision change Ears, Nose, Throat: Denies: ear pain, throat pain, dental pain, hearing loss, congestion Cardiovascular: Denies: chest pain, palpitations, dyspnea on exertion Respiratory: Denies: cough, dyspnea, wheezes Gastrointestinal: Denies: abdominal pain, nausea, vomiting, diarrhea, constipation Genitourinary male: Denies: urgency, dysuria, frequency, genital lesions Genitourinary female: Denies: urgency, dysuria, frequency, abnormal menses, dyspareunia Musculoskeletal: Denies: joint swelling, joint pain Integumentary: Denies: rash, lesions, pruritus Neurological: Denies: headache, weakness, numbness, memory loss Psychiatric: Reports: abnormal sleep pattern, auditory hallucinations, visual hallucinations, irritability Endocrine: Denies: fatigue, heat or cold intolerance Hematologic/Lymphatic: Denies: easy bruising, lymphadenopathy Allergic/Immunologic: Denies: urticaria, itchy eyes Mental Status Exam Patient orientation: Yes Person, No Time, No Place Level of alertness: Sedated Patient appearance: Unkempt, Disheveled Behavior: other (Sleeping) Psychomotor activity: Slowed Eye contact: Diverts Contact Mood description: Euthymic/stable Affect description: flat Speech pattern: Slowed Speech volume: Soft/Quiet Thought process: Slowed Thinking Thought content: No Suicidal ideation, No Homicidal ideation Perceptual disturbances: No Reacting to internal stimuli, Yes Visual hallucinations Attention span: Unable to Focus, Unable to Sustain Attention Patient reliability: Not Reliable Historian Intelligence estimate: Average Judgment: Poor Insight: Minimal Exam - HEENT Head exam IM: Present: atraumatic Eye exam IM: Present: normal appearance - Neurological Neurological exam IM: Present: CN II-XII intact - Extremities Extremities exam IM: Present: full ROM - Skin Skin exam IM: Present: dry, warm Results - Vital Signs Vital signs: Temp Pulse Resp BP Pulse Ox 97.1 F L 59 16 103/62 99 01/23/17 08:46 01/23/17 08:46 01/23/17 08:46 01/23/17 08:46 01/23/17 02:52 - Labs Labs: Laboratory Last Values WBC 13.2 K/mcL (4.3-11.1) H 01/23/17 03:34 RBC 5.74 M/mcL (4.19-5.50) H 01/23/17 03:34 Hgb 15.3 g/dL (12.9-16.9) 01/23/17 03:34 Hct 46.6 % (37.5-50.1) 01/23/17 03:34 MCV 81.2 fL (83.0-100.0) L 01/23/17 03:34 MCH 26.7 pg (28.0-33.3) L 01/23/17 03:34 MCHC 32.8 g/dL (31.6-35.5) 01/23/17 03:34 RDW 14.5 % (11.5-14.5) 01/23/17 03:34 Plt Count 381 K/mcL (140-400) 01/23/17 03:34 MPV 9.2 fL (9.4-12.4) L 01/23/17 03:34 Immature Gran % 0.2 % (0-4) 01/23/17 03:34 Seg Neutrophils % 74.7 % 01/23/17 03:34 Lymphocytes % 18.7 % 01/23/17 03:34 Monocytes % 5.8 % 01/23/17 03:34 Eosinophils % 0.3 % 01/23/17 03:34 Basophils % 0.3 % 01/23/17 03:34 Neutrophils # 9.9 K/mcL (1.6-8.9) H 01/23/17 03:34 Lymphocytes # 2.5 K/mcL (0.6-4.6) 01/23/17 03:34 Monocytes # 0.8 K/mcL (0.0-1.3) 01/23/17 03:34 Eosinophils # 0.0 K/mcL (0.0-0.6) 01/23/17 03:34 Basophils # 0.0 K/mcL (0.0-0.2) 01/23/17 03:34 Sodium 135 mEq/L (136-145) L 01/23/17 03:34 Potassium 4.4 mEq/L (3.5-4.5) 01/23/17 03:34 Chloride 99 mEq/L (98-109) 01/23/17 03:34 Carbon Dioxide 23 mEq/L (19-29) 01/23/17 03:34 BUN 14 mg/dL (8-26) 01/23/17 03:34 Creatinine 1.16 mg/dL (0.72-1.25) 01/23/17 03:34 Est GFR ( Amer) > 60 (> 60) 01/23/17 03:34 Est GFR (Non-Af Amer) > 60 (> 60) 01/23/17 03:34 BUN/Creatinine Ratio 12 (6-26) 01/23/17 03:34 Glucose 79 mg/dL (70-99) 01/23/17 03:34 Calculated Osmolality 279 (280-300) L 01/23/17 03:34 Calcium 10.7 mg/dL (8.6-10.8) 01/23/17 03:34 Urine Color Yellow (Yellow) 01/23/17 03:42 Urine Clarity Clear (Clear) 01/23/17 03:42 Urine pH 6.5 pH Units (5.0-8.0) 01/23/17 03:42 Ur Specific [place] 1.017 (1.010-1.025) 01/23/17 03:42 Urine Protein Negative mg/dL (Neg-Trace) 01/23/17 03:42 Urine Glucose (UA) Normal mg/dL (Normal) 01/23/17 03:42 Urine Ketones 15 mg/dL (Negative) H 01/23/17 03:42 Urine Blood Trace (Negative) H 01/23/17 03:42 Urine Nitrite Negative (Negative) 01/23/17 03:42 Urine Bilirubin Negative (Negative) 01/23/17 03:42 Urine Urobilinogen Normal mg/dL (Normal) 01/23/17 03:42 Ur Leukocyte Esterase Negative (Negative) 01/23/17 03:42 Urine Microscopic RBC 0-3 per hpf (0-3) 01/23/17 03:42 Urine Microscopic WBC 0-3 per hpf (0-3) 01/23/17 03:42 Ur Squamous Epith Cells Few per lpf (None-Few) 01/23/17 03:42 Urine Bacteria None Seen per hpf (None-Few) 01/23/17 03:42 Hyaline Casts None Seen per lpf (None-Few) 01/23/17 03:42 Salicylates < 5.0 mg/dL (15-30) L 01/23/17 03:34 Urine Opiates Screen Positive ng/mL (Wdouyq=137) H 01/23/17 03:42 Acetaminophen < 1.0 mcg/mL (10-30) L 01/23/17 03:34 Ur Barbiturates Screen Negative ng/mL (Akcgla=869) 01/23/17 03:42 Ur Phencyclidine Scrn Negative ng/mL (Cutoff=25) 01/23/17 03:42 Ur Amphetamines Screen Positive ng/mL (Bqttrx=9690) H 01/23/17 03:42 U Benzodiazepines Scrn Negative ng/mL (Zwgkiy=081) 01/23/17 03:42 Urine Cocaine Screen Positive ng/mL (Cutoff= 300) H 01/23/17 03:42 U Marijuana (THC) Screen Negative ng/mL (Cutoff = 50) 01/23/17 03:42 Ethyl Alcohol < 10 mg/dL (0-10) 01/23/17 03:34 Assessment and Plan (1) Acute psychosis Current visit: No Status: Acute Plan: Admit inpatient for safety and stabilization, Close observation, Suicide Precautions per unit protocol, Encourage participation in unit milieu, Group Therapy, Monitor sleep, Monitor appetite Additional Plan: Patient presented to the hospital with visual hallucinations. He did receive Geodon IM which helped with agitation and may have helped with hallucinations. We will allow the patient to clear her previous medication before adding more meds. For now hydroxyzine for anxiety and trazodone for sleep. Monitor for continued hallucinations and bizarre behavior. (2) Polysubstance (including opioids) dependence w/o physiol dependence Current visit: No Status: Acute Plan: Admit inpatient for safety and stabilization, Close observation, Suicide Precautions per unit protocol, Encourage participation in unit milieu, Group Therapy, Monitor sleep, Monitor appetite Additional Plan: Patient has a long-standing history of substance abuse with exacerbates his mental health. Encouraged patient to consider rehabilitation after discharge. Monitor vitals and monitor for any signs of opiate withdrawal. Risks, benefits, side effects, alternatives discussed w/pt: Yes Patient agreeable to treatment: Yes Plans for Post Hospital Care: Home
[2017-01-23] MEDS ORDERED: MOM Conc 10 ML UD.LIQ PO PRN (21:00)
[2017-01-23] MEDS ORDERED: traZODone 50 MG TABLET PO PRN (21:00)
[2017-01-24 10:09] VITALS: BP 118/76
--- NOTE | 2017-01-24 12:28 | Discharge Summary ---
Date of Encounter: 01/24/17 Time of Encounter: 10:00 Diagnosis - Discharge Diagnosis (1) Acute psychosis Priority: Primary Status: Acute (2) Polysubstance (including opioids) dependence w/o physiol dependence Priority: Secondary Status: Acute Medications - Discharge Medications TraZODone 100 mg PO HS 04/18/16 [History] Gabapentin [Neurontin] 300 mg PO BID #60 capsule 11/18/16 [Rx] HydrOXYzine Pamoate [Vistaril] 50 mg PO BID #60 capsule 11/18/16 [Rx] Allergies Penicillins Allergy (Verified 01/23/17 12:58) Hives Provider Date of admission: 01/23/17 06:43 Primary care physician: PCP NONE Discharging clinician: Ilsa Rothman Assessment and Plan - Patient/Caregiver Discharge Instructions Activity: resume usual activities as tolerated Diet: regular diet - Follow up Plan Follow up with: NONE,PCP [Primary Care Provider] - Functional capacity at discharge: independent ambulation Overall status at discharge: Stable Disposition: Home, Self-Care Hospital Course Hospital course: Mr. Conrad is a 26 year old male with a history of psychosis that is related presented to the hospital with increasing hallucinations and paranoia. He was admitted to the hospital for stabilization. Patient was incorporated into the therapeutic milieu and offer group and individual as well as recreational therapies. He was also offered psychoeducational materials and supportive therapy. Patient was placed on suicidal Precautions and Close Observation per Unit Protocol. Patient Was Given Antipsychotics in the Emergency Room Because of Agitation and Paranoia. On the unit, patient started to clear and began to deny psychotic symptoms. He did not appear to be responding to internal stimuli. He reports he has had similar episodes of psychosis after using stimulants. He was monitored again overnight and continued to deny paranoia. Cooperative and appropriate with peers and staff. Patient would like to continue treatment as an outpatient and he will go home to his grandmother. Grandma's comfortable with him coming home. He denied suicidal or homicidal ideation, intent or plan. He denied paranoia, visual or auditory hallucinations Refills of hydroxyzine, which patient takes for anxiety were sent to the pharmacy. He is discharged in stable condition. - Time Spent with Patient Total time spent providing and/or coordinating discharge services: Less than 30 minutes Quality - Multiple Antipsychotics Patient discharged on 2 or more antipsychotic medications: No Procedures - Procedures Procedures: Medication Management, Crisis Stabilization, Supportive Therapy, Group Therapy, Psychoeducational Therapy Mental Status Exam - Mental Status Exam Patient orientation: Yes Person, Yes Time, Yes Place Level of alertness: Alert Patient appearance: Appropriate, Well Groomed Behavior: calm, cooperative Psychomotor activity: Normal Eye contact: Maintains Eye Contact Mood description: Euthymic/stable Affect description: congruent with mood, full range Speech pattern: Normal rate, Normal rhythm, Normal tone Speech Volume: Normal Thought process: Linear, Goal Oriented Thought Content: No Suicidal ideation, No Homicidal ideation, No Overt delusions Perceptual Disturbances: No Auditory hallucinations, No Visual hallucinations Judgment: Limited Insight: Partial
== END 2017-01-24 12:55 | disposition home or self-care (01) | DRG 751 ==
LOC: EMEROO 02:51 → 1ANU 06:43
PROVIDERS: ADMIT Student in an Organized Health Care Education/Training Program; ATTEND Student in an Organized Health Care Education/Training Program

== ENCOUNTER 2017-08-10 17:14 | Inpatient (IN) ==
[2017-08-10] MEDS ORDERED: Acetaminophen 325 MG TABLET PO ONE (17:58)
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
[2017-08-10 18:04] LABS: Bilirubin,Urine Negative (Negative); Blood,Urine Trace (Negative); Clarity,Urine Clear (Clear); Color,Urine Yellow (Yellow); Glucose,Urine (UA) Normal (Normal); Ketones,Urine Negative (Negative); Leukocyte Esterase,Urine Negative (Negative); Nitrite,Urine Negative (Negative); Protein,Urine Trace mg/dL (Neg-Trace); Specific Gravity,Urine > 1.030 (1.010-1.025); Urobilinogen,Urine Normal (Normal)
[2017-08-10 18:05] LABS: Basophils % 0.3 %; Eosinophils # 0.1 K/mcL (0.0-0.6); Eosinophils % 1.1 %; Hematocrit 40.4 % (37.5-50.1); Hemoglobin 12.8 g/dL (12.9-16.9); Immature Granulocytes % 0.2 % (0-4); Lymphocytes # 2.7 K/mcL (0.6-4.6); Lymphocytes % 28.4 %; Mean Corpuscular HGB Conc 31.7 g/dL (31.6-35.5); Mean Corpuscular Hemoglobin 26.7 pg (28.0-33.3); Mean Corpuscular Volume 84.2 fL (83.0-100.0); Mean Platelet Volume 9.7 fL (9.4-12.4); Monocytes # 0.6 K/mcL (0.0-1.3); Monocytes % 5.8 %; Platelet Count 330 K/mcL (140-400); Red Cell Distribution Width 14.6 % (11.5-14.5); Segmented Neutrophils % 64.2 %
[2017-08-10 18:08] LABS: Bacteria,Urine None Seen per hpf (None-Few); Hyaline Casts,Urine None Seen per lpf (None-Few); Squamous Epithelial Cell,Urine Many per lpf (None-Few)
[2017-08-10 18:19] LABS: Amphetamine Screen,Urine Positive ng/mL (Cutoff=1000); Barbiturate Screen,Urine Negative ng/mL (Cutoff=200); Benzodiazepines Screen,Urine Negative ng/mL (Cutoff=200); Cannabinoid Screen,Urine Positive ng/mL (Cutoff = 50); Cocaine Screen,Urine Positive ng/mL (Cutoff= 300); Opiate Screen,Urine Positive ng/mL (Cutoff=300); Phencyclidine Screen,Urine Negative ng/mL (Cutoff=25)
[2017-08-10 18:27] LABS: BUN/Creatinine Ratio 21 (6-26); Blood Urea Nitrogen 21 mg/dL (6-20); Calcium 9.4 mg/dL (8.6-10.3); Carbon Dioxide 27 mEq/L (23-29); Chloride 106 mEq/L (98-107); Glucose 90 mg/dL (70-105); Osmolality,Calculated 287 (280-300); Potassium 4.3 mEq/L (3.5-5.1); Sodium 137 mEq/L (136-145); eGFR For African Americans > 60 (> 60); eGFR For Non-African Americans > 60 (> 60)
[2017-08-10 18:37] LABS: Acetaminophen < 1.0 mcg/mL (10-30); Ethanol < 10 mg/dL (0-10); Salicylate < 5.0 mg/dL (15.0-30.0)
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
[2017-08-11] MEDS ORDERED: Mag Hydrox/Al Hydrox/Simeth 30 ML UDC PO PRN (00:22)
[2017-08-11] MEDS ORDERED: Acetaminophen 325 MG TABLET PO PRN (00:22)
[2017-08-11] MEDS ORDERED: MOM Conc 10 ML UD.LIQ PO PRN (00:22)
[2017-08-11] MEDS ORDERED: *HR* LORazepam 1 MG TABLET PO PRN (00:22)
[2017-08-11] MEDS ORDERED: Haloperidol Lactate 5 MG/ML VIAL IM PRN (00:22)
[2017-08-11] MEDS ORDERED: *HR* LORazepam 2 MG/ML VIAL IM PRN (00:22)
[2017-08-11] MEDS ORDERED: traZODone 50 MG TABLET PO PRN (00:22)
[2017-08-11] MEDS ORDERED: hydrOXYzine pamoate 25 MG CAPSULE PO PRN (00:22)
[2017-08-11] MEDS ORDERED: cloNIDine HCl 0.1 MG TABLET PO PRN (00:36)
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
[2017-08-11] MEDS: risperiDONE 1 MG TABLET PO SCH (21:23)
[2017-08-12 00:50] VITALS: BP 125/82
[2017-08-12] MEDS: risperiDONE 1 MG TABLET PO SCH (10:08)
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
== END 2017-08-12 18:00 | disposition home or self-care (01) | DRG 773 ==
LOC: EMEROO 17:14 → 1ANU 22:02
PROVIDERS: ADMIT Psychiatry & Neurology Psychiatry; ATTEND Psychiatry & Neurology Psychiatry

== ENCOUNTER 2017-10-24 17:36 | Observation (INO) ==
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
[2017-10-24] MEDS ORDERED: Haloperidol Lactate 5 MG/ML VIAL IM ONE (18:14)
[2017-10-24] MEDS ORDERED: *HR* LORazepam 2 MG/ML VIAL IM ONE (18:14)
[2017-10-24 18:52] LABS: Basophils % 0.2 %; Eosinophils % 0.2 %; Hematocrit 40.3 % (37.5-50.1); Hemoglobin 13.2 g/dL (12.9-16.9); Immature Granulocytes % 0.3 % (0-4); Lymphocytes # 0.5 K/mcL (0.6-4.6); Lymphocytes % 3.5 %; Mean Corpuscular HGB Conc 32.8 g/dL (31.6-35.5); Mean Corpuscular Hemoglobin 27.2 pg (28.0-33.3); Mean Corpuscular Volume 82.9 fL (83.0-100.0); Mean Platelet Volume 9.2 fL (9.4-12.4); Monocytes # 0.1 K/mcL (0.0-1.3); Monocytes % 0.7 %; Neutrophils # 12.8 K/mcL (1.6-8.9); Platelet Count 249 K/mcL (140-400); Red Blood Count 4.86 M/mcL (4.19-5.50); Red Cell Distribution Width 14.9 % (11.5-14.5); Segmented Neutrophils % 95.1 %
[2017-10-24 18:55] LABS: Bilirubin,Urine Small (Negative); Blood,Urine Small (Negative); Clarity,Urine Turbid (Clear); Color,Urine Orange (Yellow); Glucose,Urine (UA) 100 mg/dL (Normal); Ketones,Urine 15 mg/dL (Negative); Specific Gravity,Urine 1.024 (1.010-1.025)
[2017-10-24 18:56] LABS: Leukocyte Esterase,Urine Small (Negative); Nitrite,Urine Negative (Negative); Protein,Urine >=300 mg/dL (Neg-Trace); RBC,Urine 0-3 per hpf (0-3); WBC,Urine 15-30 per hpf (0-3)
[2017-10-24 18:57] LABS: Amorphous Sediment,Urine Moderate (Few); Bacteria,Urine Few per hpf (None-Few); Hyaline Casts,Urine Few per lpf (None-Few); Squamous Epithelial Cell,Urine Many per lpf (None-Few)
[2017-10-24 19:07] LABS: Amphetamine Screen,Urine Positive ng/mL (Cutoff=1000); Barbiturate Screen,Urine Negative ng/mL (Cutoff=200); Benzodiazepines Screen,Urine Negative ng/mL (Cutoff=200); Cannabinoid Screen,Urine Negative ng/mL (Cutoff = 50); Cocaine Screen,Urine Negative ng/mL (Cutoff= 300); Opiate Screen,Urine Positive ng/mL (Cutoff=300); Phencyclidine Screen,Urine Negative ng/mL (Cutoff=25)
[2017-10-24 19:08] LABS: Acetaminophen < 10 mcg/mL (10-20); BUN/Creatinine Ratio 13 (6-26); Blood Urea Nitrogen 21 mg/dL (6-20); Calcium 8.9 mg/dL (8.6-10.3); Carbon Dioxide 25 mEq/L (23-29); Chloride 103 mEq/L (98-107); Ethanol < 10 mg/dL (Less than 10); Glucose 88 mg/dL (70-105); Osmolality,Calculated 288 (280-300); Potassium 4.5 mEq/L (3.5-5.1); Salicylate < 2.5 mg/dL (15.0-30.0); Sodium 138 mEq/L (136-145); eGFR For African Americans > 60 (> 60); eGFR For Non-African Americans 50 (> 60)
[2017-10-24] MEDS ORDERED: 0.9 % Sodium Chloride 1,000 ML IVC ONE (19:59)
[2017-10-24] MEDS ORDERED: Naloxone 0.4 MG/ML INJ IVP PRN ×2 (22:26)
[2017-10-24] MEDS ORDERED: Acetaminophen 325 MG TABLET PO PRN (22:26)
--- NOTE | 2017-10-24 22:32 | Internal Med History&Physical ---
Date of Encounter: 10/24/17 Time of Encounter: 22:27 Internal Medicine - H&P: HPI Chief complaint: Belligerent Admitted From: Emergency Dept Plans for Post Hospital Care: Home History of present illness: Mr. Conrad is a 27 year old male with psych history reportedly includes schizophrenia bipolar as well as history of multiple substance abuse who presented to the ED via EMS for psychiatric evaluation. Apparently per report EMS were called by the patient's parents as he was violent and belligerent. He was never suicidal or homicidal while in the ED. However the patient was pink slipped due to his violent behavior. I spoke to the ED staff who told me that on initial presentation the patient was awake but had pressured speech and seemed under the influence of some type of a substance. He kept on asking for caffeine. He threatened to leave a couple of times. He was hemodynamically stable but blood pressure was borderline low with a systolic of 106/54. Due to his behavior the patient was given Haldol, Ativan, Benadryl and he has been sedated since. By the time I went and evaluated the patient he was barely answering questions. He could not stay fully awake. He would open his eyes sluggishly and go back to sleep. He had a CT head that was unremarkable in the ED. Laboratory workup showed leukocytosis with a MAXIMUM TEMPERATURE of 99.8. It also showed acute kidney injury. Urine was negative for an infection. The patient had a urine drug screen that was positive for opiates as well as amphetamine. Past Med Surg Social Fam HX - Past Medical History Medical history: asthma, other Psychiatric history: ADHD, previous psychiatric hospitalization - Past Surgical History Surgical History: no surgical history - Social History Smoking Status: Current every day smoker Smokeless Tobacco Status: No Alcohol use: occasionally Drug use: cocaine, opiates, marijuana, methamphetamine, IV Drug Use Internal Medicine - H&P: Meds risperiDONE [RisperDAL] 1 mg PO BID #28 tablet 08/12/17 [Rx] 3 Allergy/AdvReac Type Severity Reaction Status Date / Time Penicillins Allergy Hives Verified 10/24/17 17:45 ROS unobtainable: due to mental status All Systems PM: A 10-system review of systems was performed and is negative for pertinent findings except as documented above in the HPI. - Constitutional Vitals: Temp Pulse Resp BP Pulse Ox 99.8 F H 112 20 101/63 99 05/06/18 17:53 10/24/17 20:49 10/24/17 20:49 10/24/17 20:49 10/24/17 20:49 Exam: GGEN: NAD HEENT: AT, NC, No cyanosis, oral mucosa is moist, No JVD Lymphatics: No lymphadenoapthy Eyes: Extrocular muscles intact, anicteric CVS:RRR. S1, S2, No m/r/g RESP: CTAB ABD: Soft, NT, ND, +BS EXT: No edema, No rashes, 2+ DP NEURO: Patient is heavily sedated. He opens his eyes and answers 1 word answers and goes back to sleep. Internal Med - H&P Results - Labs CBC & Chem 7: 10/24/17 17:44 10/24/17 17:44 Labs: Short CBC 10/24/17 Range/Units 17:44 WBC 13.4 H (4.3-11.1) K/mcL Hgb 13.2 (12.9-16.9) g/dL Hct 40.3 (37.5-50.1) % Plt Count 249 (140-400) K/mcL Neutrophils # 12.8 H (1.6-8.9) K/mcL BMP 10/24/17 17:44 Sodium 138 Potassium 4.5 Chloride 103 Carbon Dioxide 25 BUN 21 H Creatinine 1.65 H Glucose 88 Calcium 8.9 Urine 10/24/17 Range/Units 18:20 Urine Color [place] A (Yellow) Urine Clarity Turbid A (Clear) Urine pH 6.0 (5.0-8.0) pH Units Ur Specific [place] 1.024 (1.010-1.025) Urine Protein >=300 H (Neg-Trace) mg/dL Urine Glucose (UA) 100 H (Normal) mg/dL - Impressions ITS Impressions Head CT 10/24/17 20:04 IMPRESSION: No acute intracranial abnormality. D/ / Darrian North MD / Darrian North MD Interpreting Provider: Darrian North MD - Assessment and plan (1) Acute kidney failure Current Visit: Yes Status: Acute Assessment and plan: We will start some IV hydration. Check labs in the morning. Avoid nephrotoxins. Qualifiers: Acute renal failure type: unspecified Qualified Code(s): N17.9 - Acute kidney failure, unspecified (2) Leukocytosis Current Visit: Yes Status: Acute Assessment and plan: Possibly reactive. Patient's MAXIMUM TEMPERATURE is 99.8. UA is negative for infection. We will monitor for now. Check labs in the morning. He possibly needs some hydration. Qualifiers: Leukocytosis type: unspecified Qualified Code(s): D72.829 - Elevated white blood cell count, unspecified (3) Acute psychosis Current Visit: No Status: Acute Assessment and plan: The patient has a history of being admitted to the psych unit for suicidal thoughts. The patient has been pink slipped in the ED but the ED staff tells me that he has not expressed any suicidal or homicidal ideations. Given his history will ask psych to see him. (4) Polysubstance abuse Current Visit: Yes Status: Acute Assessment and plan: We will monitor the patient for any withdrawal symptoms. The patient is heavily sedated currently. (5) DVT prophylaxis Current Visit: Yes Status: Acute Assessment and plan: SCDs - Time Spent With Patient Total time spent is greater than 50% in coordination of care (as documented) at patient's floor/unit and/or counseling patient:
--- NOTE | 2017-10-24 22:49 | Emergency Department Note ---
Disposition Clinical Impression: Renal insufficiency, Medical clearance for psychiatric admission, Polysubstance abuse Disposition: Admitted As Inpatient Condition: Fair General Adult HPI - General Chief complaint: ED Psychiatric Symptoms Stated complaint: SI/schizophrenic/confused/not on meds Time Seen by Provider: 10/24/17 17:44 Source: patient, EMS Mode of arrival: EMS Limitations: no limitations - History of Present Illness Pain Scale: 0 - Related Data Previous Rx's Medication Instructions Recorded risperiDONE [RisperDAL] 1 mg PO BID #28 tablet 08/12/17 Allergies Allergy/AdvReac Type Severity Reaction Status Date / Time Penicillins Allergy Hives Verified 10/24/17 17:45 Constitutional: Denies: weakness Cardiovascular: Denies: chest pain Respiratory: Denies: cough Gastrointestinal: Denies: abdominal pain Musculoskeletal: Denies: back pain, neck pain Psychiatric: Denies: suicidal thoughts, homicidal thoughts, visual hallucinations Past Medical History - Past Medical History Medical history: Reports: asthma, other Surgical history: Reports: no surgical history Psychiatric history: Reports: ADHD, previous psychiatric hospitalization - Social History Smoking Status: Current every day smoker Smokeless Tobacco Status: No Alcohol use: Reports: occasionally Drug use: Reports: cocaine, opiates, marijuana, methamphetamine, IV Drug Use Physical Exam - General Limitations: no limitations General appearance: anxious, other (agitated) Course Vital Signs Temperature 99.8 F H 10/24/17 17:53 Pulse Rate 139 10/24/17 17:53 Respiratory Rate 20 10/24/17 17:53 Blood Pressure 106/54 10/24/17 17:53 O2 Sat by Pulse Oximetry 98 10/24/17 17:53 Temperature 99.8 F H 10/24/17 17:53 Pulse Rate 94 10/24/17 22:51 Respiratory Rate 20 10/24/17 22:51 Blood Pressure 99/62 10/24/17 22:51 O2 Sat by Pulse Oximetry 99 10/24/17 22:51 Oxygen Delivery Oxygen Delivery Room Air Medical Decision Making - Lab Data Result diagrams: 10/24/17 17:44 10/24/17 17:44 Lab Results 10/24/17 10/24/17 10/24/17 Range/Units 17:44 17:44 18:20 WBC 13.4 H (4.3-11.1) K/mcL RBC 4.86 (4.19-5.50) M/mcL Hgb 13.2 (12.9-16.9) g/dL Hct 40.3 (37.5-50.1) % MCV 82.9 L (83.0-100.0) fL MCH 27.2 L (28.0-33.3) pg MCHC 32.8 (31.6-35.5) g/dL RDW 14.9 H (11.5-14.5) % Plt Count 249 (140-400) K/mcL MPV 9.2 L (9.4-12.4) fL Immature Gran % 0.3 (0-4) % Seg Neutrophils % 95.1 % Lymphocytes % 3.5 % Monocytes % 0.7 % Eosinophils % 0.2 % Basophils % 0.2 % Neutrophils # 12.8 H (1.6-8.9) K/mcL Lymphocytes # 0.5 L (0.6-4.6) K/mcL Monocytes # 0.1 (0.0-1.3) K/mcL Eosinophils # 0.0 (0.0-0.6) K/mcL Basophils # 0.0 (0.0-0.2) K/mcL Sodium 138 (136-145) mEq/L Potassium 4.5 (3.5-5.1) mEq/L Chloride 103 (98-107) mEq/L Carbon Dioxide 25 (23-29) mEq/L BUN 21 H (6-20) mg/dL Creatinine 1.65 H (0.70-1.30) mg/dL Est GFR ( Amer) > 60 (> 60) Est GFR (Non-Af Amer) 50 L (> 60) BUN/Creatinine Ratio 13 (6-26) Glucose 88 (70-105) mg/dL Calculated Osmolality 288 (280-300) Calcium 8.9 (8.6-10.3) mg/dL Urine Color [place] A (Yellow) Urine Clarity Turbid A (Clear) Urine pH 6.0 (5.0-8.0) pH Units Ur Specific [place] 1.024 (1.010-1.025) Urine Protein >=300 H (Neg-Trace) mg/dL Urine Glucose (UA) 100 H (Normal) mg/dL Urine Ketones 15 H (Negative) mg/dL Urine Blood Small H (Negative) Urine Nitrite Negative (Negative) Urine Bilirubin Small H (Negative) Urine Urobilinogen 2.0 H (Normal) mg/dL Ur Leukocyte Esterase Small H (Negative) Urine Microscopic RBC 0-3 (0-3) per hpf Urine Microscopic WBC 15-30 H (0-3) per hpf Ur Squamous Epith Cells Many H (None-Few) per lpf Amorphous Sediment Moderate H (Few) Urine Bacteria Few (None-Few) per hpf Hyaline Casts Few (None-Few) per lpf Salicylates < 2.5 L (15.0-30.0) mg/dL Urine Opiates Screen (Sreauu=909) ng/mL Acetaminophen < 10 L (10-20) mcg/mL Ur Barbiturates Screen (Gyuyoz=379) ng/mL Ur Phencyclidine Scrn (Cutoff=25) ng/mL Ur Amphetamines Screen (Exshuw=2801) ng/mL U Benzodiazepines Scrn (Ioyqnc=455) ng/mL Urine Cocaine Screen (Cutoff= 300) ng/mL U Marijuana (THC) Screen (Cutoff = 50) ng/mL Ethyl Alcohol < 10 (Less than 10) mg/dL 10/24/17 Range/Units 18:20 WBC (4.3-11.1) K/mcL RBC (4.19-5.50) M/mcL Hgb (12.9-16.9) g/dL Hct (37.5-50.1) % MCV (83.0-100.0) fL MCH (28.0-33.3) pg MCHC (31.6-35.5) g/dL RDW (11.5-14.5) % Plt Count (140-400) K/mcL MPV (9.4-12.4) fL Immature Gran % (0-4) % Seg Neutrophils % % Lymphocytes % % Monocytes % % Eosinophils % % Basophils % % Neutrophils # (1.6-8.9) K/mcL Lymphocytes # (0.6-4.6) K/mcL Monocytes # (0.0-1.3) K/mcL Eosinophils # (0.0-0.6) K/mcL Basophils # (0.0-0.2) K/mcL Sodium (136-145) mEq/L Potassium (3.5-5.1) mEq/L Chloride (98-107) mEq/L Carbon Dioxide (23-29) mEq/L BUN (6-20) mg/dL Creatinine (0.70-1.30) mg/dL Est GFR ( Amer) (> 60) Est GFR (Non-Af Amer) (> 60) BUN/Creatinine Ratio (6-26) Glucose (70-105) mg/dL Calculated Osmolality (280-300) Calcium (8.6-10.3) mg/dL Urine Color (Yellow) Urine Clarity (Clear) Urine pH (5.0-8.0) pH Units Ur Specific [place] (1.010-1.025) Urine Protein (Neg-Trace) mg/dL Urine Glucose (UA) (Normal) mg/dL Urine Ketones (Negative) mg/dL Urine Blood (Negative) Urine Nitrite (Negative) Urine Bilirubin (Negative) Urine Urobilinogen (Normal) mg/dL Ur Leukocyte Esterase (Negative) Urine Microscopic RBC (0-3) per hpf Urine Microscopic WBC (0-3) per hpf Ur Squamous Epith Cells (None-Few) per lpf Amorphous Sediment (Few) Urine Bacteria (None-Few) per hpf Hyaline Casts (None-Few) per lpf Salicylates (15.0-30.0) mg/dL Urine Opiates Screen Positive H (Uhodzj=924) ng/mL Acetaminophen (10-20) mcg/mL Ur Barbiturates Screen Negative (Pkvvsx=918) ng/mL Ur Phencyclidine Scrn Negative (Cutoff=25) ng/mL Ur Amphetamines Screen Positive H (Tkytqi=2971) ng/mL U Benzodiazepines Scrn Negative (Uffvfn=831) ng/mL Urine Cocaine Screen Negative (Cutoff= 300) ng/mL U Marijuana (THC) Screen Negative (Cutoff = 50) ng/mL Ethyl Alcohol (Less than 10) mg/dL Attestation Statement - Attestation Attestation: I examined this patient and my medical decision-making was reviewed with the Resident Physician, Dr. Camacho. I agree with the documented findings, disposition and treatment plan as described except to the extent set forth below. Patient is a 27-year-old male with history of schizophrenia and bipolar disorder who is brought to us by EMS agitated. His parents had actually called the police because he was acting erratic and agitated in has been refusing to take his medications at home. Patient was agitated and aggressive on arrival threatening to leave the ED and was repeatedly requesting caffeine and emotionally labile. Unclear if he was under the influence of the substance although he denied this. Difficult to obtain accurate history due to his agitation. Patient required physical and chemical restraints on arrival for his protection. It appears he has a history of prior psychiatric evaluations and hospitalizations. Patient denied on arrival any suicidal or homicidal ideation. I agree with patient's physical exam findings as documented. Vital signs show sinus tachycardia but blood pressure stable. Patient had lab evaluation including urinalysis for medical clearance, pink slip was signed and placed on the chart. Patient was more subdued following medications. Lab evaluation shows acute kidney injury likely due to decreased by mouth intake so IV fluids were instituted. Patient was also sent for CT head to rule out any intracranial injuries which showed no acute findings. Due to patient's kidney injury and polysubstance abuse we will admit him medically with a psychiatric consult. Case was discussed with the hospitalist who accepted patient for admission for further evaluation and management.
[2017-10-25] MEDS: 0.9 % Sodium Chloride 1,000 ML IVC SCH ×3 (01:20→17:12)
[2017-10-25 07:35] LABS: BUN/Creatinine Ratio 17 (6-26); Blood Urea Nitrogen 21 mg/dL (6-20); Calcium 8.8 mg/dL (8.6-10.3); Carbon Dioxide 23 mEq/L (23-29); Chloride 104 mEq/L (98-107); Glucose 75 mg/dL (70-105); Magnesium 1.7 mg/dL (1.6-2.6); Osmolality,Calculated 286 (280-300); Potassium 4.4 mEq/L (3.5-5.1); Sodium 137 mEq/L (136-145); eGFR For African Americans > 60 (> 60); eGFR For Non-African Americans > 60 (> 60)
[2017-10-25 07:48] LABS: Thyroid Stimulating Hormone 0.477 mcIU/mL (0.340-5.600)
[2017-10-25 08:39] LABS: Hemoglobin 13.4 g/dL (12.9-16.9); Mean Platelet Volume 10.1 fL (9.4-12.4); Red Cell Distribution Width 15.2 % (11.5-14.5)
[2017-10-25 08:40] LABS: Hematocrit 40.8 % (37.5-50.1); Mean Corpuscular HGB Conc 32.8 g/dL (31.6-35.5); Mean Corpuscular Hemoglobin 27.5 pg (28.0-33.3); Mean Corpuscular Volume 83.8 fL (83.0-100.0); Platelet Count 291 K/mcL (140-400); Red Blood Count 4.87 M/mcL (4.19-5.50)
[2017-10-25 09:25] LABS: Platelet Estimate Normal (Normal)
[2017-10-25 09:26] LABS: Lymphocytes # 2.1 K/mcL (0.6-4.6); Monocytes # 0.7 K/mcL (0.0-1.3); Neutrophils # 32.4 K/mcL (1.6-8.9)
--- NOTE | 2017-10-25 10:18 | Internal Med Progress Note ---
Date of Encounter: 10/25/17 Time of Encounter: 09:00 - Assessment and plan (1) Acute psychosis Current Visit: Yes Status: Acute Assessment and plan: Patient is a history of schizophrenia and bipolar Admitted yesterday due to acute psychosis with violence and aggression requiring pink slipped History of psych admissions for suicidal ideation; patient is somnolent unable to assess if he has any current suicidal ideations. As reported by the ED staff to admitting physician the patient denied any suicidal/homicidal ideation. when The patient more alert and appropriate however discuss with him whether or not he has suicidal ideation to the meantime consider 1:1 sitter, and frequent monitoring Ativan for agitation when necessary Consult to psychiatry-awaiting further recommendations Is unclear at this time with the patient's on any antipsychotics, due to his current status he is unable to comply with questioning (2) Polysubstance abuse Current Visit: Yes Status: Acute Assessment and plan: We will monitor the patient for any withdrawal symptoms. The patient is still sedated, continue to monitor (3) Leukocytosis Current Visit: Yes Status: Acute Assessment and plan: Possibly reactive in the setting of methamphetamine abuse however, there is some bandemia noted and the leukocytosis has increased since admission. The patient remains afebrile and hemodynamically stable. UA was negative for infection. Continue to monitor for now and recheck labs in the morning. Continue IV Hydration Qualifiers: Leukocytosis type: unspecified Qualified Code(s): D72.829 - Elevated white blood cell count, unspecified (4) Acute kidney failure Current Visit: Yes Status: Resolved Assessment and plan: Resolved Qualifiers: Acute renal failure type: unspecified Qualified Code(s): N17.9 - Acute kidney failure, unspecified (5) DVT prophylaxis Current Visit: Yes Status: Acute Assessment and plan: Continue SCDs - Time Spent With Patient Total time spent is greater than 50% in coordination of care (as documented) at patient's floor/unit and/or counseling patient: 25 - 35 minutes - Subjective Interval history: Mr. Conrad is a 27-year-old male with a past psych history including schizophrenia/bipolar shortness abuse disorder. Presented to the ED for psych evaluation. The patient was being very violent and belligerent with his parents requiring a pink slipped due to violent behavior. Throughout the stay the patient has denied suicidal/homicidal ideation. Patient seen and examined at the bedside this morning. Remained somnolent, could open his eyes and answer questions however he was sluggish and fell back asleep quickly. - Constitutional Vitals: Temp Pulse Resp BP Pulse Ox 98.0 F 89 16 98/57 100 10/25/17 07:35 10/25/17 07:35 10/25/17 07:35 10/25/17 07:35 10/25/17 07:35 General appearance: Present: A&O X 2, mild distress Exam: Somnolent - Head Head exam: Present: atraumatic, normocephalic - Eye Eye exam: Present: PERRL, conjuntiva pink, sclera anicteric Pupils: Present: PERRL - Neck Neck exam general surgery: Present: supple, trachea midline. Absent: lymphadenopathy - Respiratory Respiratory exam: Present: CTAB. Absent: accessory muscle use, rales, rhonchi, wheezes - Cardiovascular Cardiovascular exam: Present: RRR, +S1, +S2. Absent: diastolic murmur, gallop, rubs, systolic murmur - GI/Abdominal GI/Abdominal exam: Present: normal bowel sounds, soft, no peritoneal signs. Absent: distended, tenderness - Extremities Exam Extremities exam: Present: warm, radial pulses palpable and symmetrical. Absent : calf tenderness, cyanotic, pedal edema - Neurological Exam Neurological exam: Present: altered, no focal deficits Additional comments: MINESH 2/2 somnolence - Skin Skin exam: Present: dry, intact Internal Medicine: Result - Labs CBC & Chem 7: 10/25/17 06:04 10/25/17 06:04 Labs: Short CBC 10/25/17 Range/Units 06:04 WBC 35.2 H* D (4.3-11.1) K/mcL Hgb 13.4 (12.9-16.9) g/dL Hct 40.8 (37.5-50.1) % Plt Count 291 (140-400) K/mcL Neutrophils # 32.4 H (1.6-8.9) K/mcL BMP 10/25/17 06:04 Sodium 137 Potassium 4.4 Chloride 104 Carbon Dioxide 23 BUN 21 H Creatinine 1.26 Glucose 75 Calcium 8.8 - Impressions Impressions Head CT 10/24/17 20:04 IMPRESSION: No acute intracranial abnormality. D/ / Darrian North MD / Darrian North MD Interpreting Provider: Darrian North MD Consult Discharge Plan - Plan Referrals: NONE,PCP [Primary Care Provider] -
--- NOTE | 2017-10-25 16:15 | Event Note ---
Date of Encounter: 10/25/17 Time of Encounter: 11:30 Attempted to see patient today but patient was too sedated to engage in the interview process. We will return tomorrow morning for another attempt for evaluation.
[2017-10-26] MEDS: 0.9 % Sodium Chloride 1,000 ML IVC SCH ×3 (02:36→12:47)
[2017-10-26 07:29] LABS: BUN/Creatinine Ratio 19 (6-26); Blood Urea Nitrogen 16 mg/dL (6-20); Calcium 8.6 mg/dL (8.6-10.3); Carbon Dioxide 24 mEq/L (23-29); Chloride 110 mEq/L (98-107); Glucose 121 mg/dL (70-105); Osmolality,Calculated 296 (280-300); Potassium 4.2 mEq/L (3.5-5.1); Sodium 142 mEq/L (136-145); eGFR For African Americans > 60 (> 60); eGFR For Non-African Americans > 60 (> 60)
[2017-10-26 07:56] LABS: Basophils % 0.2 %; Eosinophils # 0.1 K/mcL (0.0-0.6); Eosinophils % 0.8 %; Hematocrit 39.7 % (37.5-50.1); Hemoglobin 12.9 g/dL (12.9-16.9); Immature Granulocytes % 0.7 % (0-4); Lymphocytes # 2.4 K/mcL (0.6-4.6); Lymphocytes % 14.1 %; Mean Corpuscular HGB Conc 32.5 g/dL (31.6-35.5); Mean Corpuscular Hemoglobin 27.6 pg (28.0-33.3); Mean Corpuscular Volume 84.8 fL (83.0-100.0); Mean Platelet Volume 10.2 fL (9.4-12.4); Monocytes # 1.1 K/mcL (0.0-1.3); Monocytes % 6.3 %; Neutrophils # 13.2 K/mcL (1.6-8.9); Platelet Count 281 K/mcL (140-400); Red Blood Count 4.68 M/mcL (4.19-5.50); Red Cell Distribution Width 15.3 % (11.5-14.5); Segmented Neutrophils % 77.9 %
--- NOTE | 2017-10-26 11:27 | Internal Med Progress Note ---
Date of Encounter: 10/26/17 Time of Encounter: 09:25 - Assessment and plan (1) Acute psychosis Current Visit: Yes Status: Acute Assessment and plan: Patient is a history of schizophrenia and bipolar disorder. Pt admitted for monitoring of acute psychosis including pt being physically violent and belligerent with his family. Pt was pink-slipped on arrival and has a sitter currently. He has been drowsy and difficult to assess to this point. He did deny SI/HI to me this a.m. Psychiatry is consulted, awaiting their evaluation. Pt has been drowsy and they have not been able to assess him. I appreciate their recommendations and consultation. (2) Polysubstance abuse Current Visit: Yes Status: Resolved Assessment and plan: Urine drug screen positive for opiates and amphetamines. Continue to monitor for withdrawl symptoms. Pt intermittently drowsy, continue to monitor for safety and pt condition. We will monitor the patient for any withdrawal symptoms. The patient is still sedated, continue to monitor (3) Leukocytosis Current Visit: Yes Status: Acute Assessment and plan: Decreased from yesterday, but remains slightly elevated. Urine indicative of UTI , could be source of leukocytosis. Will start empiric abx and narrow as culture is available. Pt is afebrile, normotensive and has no tachycardia. No signs of SIRS or sepsis. Continue to monitor labs and pt condition, vitals. Levaquin 500mg po daily Qualifiers: Leukocytosis type: unspecified Qualified Code(s): D72.829 - Elevated white blood cell count, unspecified (4) Acute kidney failure Current Visit: Yes Status: Resolved Assessment and plan: REsolved. Labs WNL. Continue to monitor labs and pt condition. Qualifiers: Acute renal failure type: unspecified Qualified Code(s): N17.9 - Acute kidney failure, unspecified (5) DVT prophylaxis Current Visit: Yes Status: Acute Assessment and plan: Continue SCDs, encourage ambulation. - Time Spent With Patient Total time spent is greater than 50% in coordination of care (as documented) at patient's floor/unit and/or counseling patient: less than 15 minutes - Subjective Interval history: Pt was seen and assessed at bedside at 0925. He was drowsy, but awakened briefly to answer questions, then back to sleep. About and hour later, pt was alert, awake, appropriate and states that he was ready to speak with psychiatry. He denies chest pain, n/v/d, headache, blurred vision, SOB, or abdominal pain. He denies any intent to harm himself or others. - Constitutional Vitals: Temp Pulse Resp BP Pulse Ox 97.6 F 57 16 121/71 97 10/26/17 07:24 10/26/17 07:24 10/26/17 07:24 10/26/17 07:24 10/26/17 08:57 General appearance: Present: cooperative, A&O X 2, pleasant, no acute distress, answers questions appropriately - Head Head exam: Present: atraumatic, normal inspection, normocephalic - Eye Eye exam: Present: normal appearance, conjuntiva pink, sclera anicteric - Neck Neck exam general surgery: Present: supple, trachea midline. Absent: lymphadenopathy - Respiratory Respiratory exam: Present: CTAB. Absent: accessory muscle use, chest wall tenderness, rales, respiratory distress, rhonchi, wheezes - Cardiovascular Cardiovascular exam: Present: RRR, +S1, +S2. Absent: diastolic murmur, gallop, rubs, systolic murmur - GI/Abdominal GI/Abdominal exam: Present: normal bowel sounds, soft. Absent: distended, hepatomegaly, tenderness - Extremities Exam Extremities exam: Present: normal capillary refill, normal inspection, warm, radial pulses palpable and symmetrical. Absent: calf tenderness, cyanotic, pedal edema - Neurological Exam Neurological exam: Present: alert, oriented X3, no focal deficits. Absent: altered, facial droop, speech deficit - Skin Skin exam: Present: dry, intact, normal color, warm. Absent: rash Internal Medicine: Result - Labs CBC & Chem 7: 10/26/17 06:11 10/26/17 06:11 Labs: Short CBC 10/26/17 Range/Units 06:11 WBC 16.9 H D (4.3-11.1) K/mcL Hgb 12.9 (12.9-16.9) g/dL Hct 39.7 (37.5-50.1) % Plt Count 281 (140-400) K/mcL Neutrophils # 13.2 H (1.6-8.9) K/mcL BMP 10/26/17 06:11 Sodium 142 Potassium 4.2 Chloride 110 H Carbon Dioxide 24 BUN 16 Creatinine 0.83 Glucose 121 H Calcium 8.6 - Impressions Impressions Chest X-Ray 10/25/17 16:04 IMPRESSION: No acute cardiopulmonary abnormality. D/ / Nash Temple / Nash Temple Interpreting Provider: Nash Temple Consult Discharge Plan - Plan Referrals: NONE,PCP [Primary Care Provider] -
[2017-10-26] MEDS ORDERED: levoFLOXacin 500 MG TABLET PO SCH (12:15)
[2017-10-26 13:09] LABS: Bilirubin,Urine Negative (Negative); Blood,Urine Negative (Negative); Clarity,Urine Clear (Clear); Color,Urine Yellow (Yellow); Glucose,Urine (UA) Normal (Normal); Ketones,Urine Negative (Negative); Leukocyte Esterase,Urine Negative (Negative); Nitrite,Urine Negative (Negative); Protein,Urine Negative (Neg-Trace); Specific Gravity,Urine 1.014 (1.010-1.025); Urobilinogen,Urine Normal (Normal)
--- NOTE | 2017-10-26 13:29 | Consult Note ---
Date of Encounter: 10/26/17 Time of Encounter: 11:40 Assessment & Recommendation (1) Acute psychosis Current visit: Yes Status: Acute Assessment & Recommendation: Continue one-to-one observation until patient is medically stabilized. Patient will require psychiatric admission for further stabilization. Patient will require a pink slip. Once patient is ready for transfer we may need to medicate as he has been agitated this admission. (2) Opiate abuse, episodic Current visit: Yes Status: Acute (3) Amphetamine abuse Current visit: No Status: Acute History of Present Illness Patient: known to practice within the last 3 years Requesting Physician: Rachel August MD Reason for consult: Psychosis, substance abuse History of present illness: Mr. Conrad is a 27 year old male with a history of psychosis, polysubstance abuse who presented to the hospital with bizarre behavior and agitation. He was admitted to the medical floor after being medicated in the emergency room. Initially patient was too sedated to participate in an interview. Today patient is more alert. He reports he does have a history of schizophrenia. He has not been taking his medications and does not remember what medications he is taking. He minimizes his drug use. He does admit to using some drugs prior to coming into the hospital that he cannot remember which ones. Urine tox was positive for amphetamines and opiates. Patient denies auditory or visual hallucinations now. He is initially able to maintain linear conversation. Then he told this provider "I am the triple [place] [facility]." He then becomes very disorganized talking about different cards like the joker and the [place] of hearts. After that he is unable to give other information. He did state that he be staying with his mom on discharge. He does not appear to be actively responding to internal stimuli. Patient has multiple admissions to this facility for psychosis related to drug use. He may have an underlying bipolar disorder or schizophrenia. Patient does admit to poor sleep prior to coming to the hospital but is unable to give a timeline of mood and sleep symptoms. CC: Rachel August MD Past Med Surg Social Fam HX - Past Medical History Medical history: asthma, other - Past Psychiatric History Psychiatric history: Reports: previous psychiatric hospitalization, other ( Psychosis secondary to drug use versus bipolar disorder) Past psychiatric history details: Patient has multiple previous admissions for psychosis. Family psychiatric history: No Family History of Suicide: None - Past Surgical History Surgical History: no surgical history - Social History Smoking Status: Current every day smoker Smokeless Tobacco Status: No Alcohol use: occasionally Drug use: cocaine, opiates, marijuana, methamphetamine, IV Drug Use Medications & Allergies No Known Home Drugs 10/25/17 [History] 3 Allergy/AdvReac Type Severity Reaction Status Date / Time Penicillins Allergy Hives Verified 10/24/17 17:45 Review of Systems ROS limited: due to patient condition Psychiatric: Reports: abnormal sleep pattern, confusion, irritability, mood swings, other (Delusions) Psychiatry Exam - Constitutional Vitals: Temp Pulse Resp BP Pulse Ox 98.3 F 68 16 111/73 98 10/26/17 11:00 10/26/17 11:00 10/26/17 11:00 10/26/17 11:00 10/26/17 11:00 General appearance: age & developmentally appropriate, unkempt - Musculoskeletal Gait: other (Patient lying in bed) Station: relaxed Strength & Tone: normal for patient - Psychiatric Patient Orientation: Yes Person, Yes Place Level of alertness: Alert Behavior: cooperative, restless Psychomotor activity: Normal Eye Contact: Intense Contact Mood Description: Euthymic/stable Affect description: labile, euphoric, other (Expansive) Speech Volume: Normal Speech pattern: rambling, excessive Language & Vocabulary: limited Thought Process: Circumstantial Thought Content: No Suicidal ideation, No Homicidal ideation, Yes Grandiose delusion Perceptual Disturbances: No Auditory hallucinations, No Visual hallucinations Attention Span Ability: Unable to Focus Memory Description: Immediate Intact, Recent Impaired, Remote Impaired Patient Reliability: Not Reliable Historian Fund of knowledge: Yes average Intelligence Estimate: Average Judgment: Poor Insight: None Results - Labs Labs: Laboratory Last Values WBC 16.9 K/mcL (4.3-11.1) H D 10/26/17 06:11 RBC 4.68 M/mcL (4.19-5.50) 10/26/17 06:11 Hgb 12.9 g/dL (12.9-16.9) 10/26/17 06:11 Hct 39.7 % (37.5-50.1) 10/26/17 06:11 MCV 84.8 fL (83.0-100.0) 10/26/17 06:11 MCH 27.6 pg (28.0-33.3) L 10/26/17 06:11 MCHC 32.5 g/dL (31.6-35.5) 10/26/17 06:11 RDW 15.3 % (11.5-14.5) H 10/26/17 06:11 Plt Count 281 K/mcL (140-400) 10/26/17 06:11 MPV 10.2 fL (9.4-12.4) 10/26/17 06:11 Immature Gran % 0.7 % (0-4) 10/26/17 06:11 Seg Neutrophils % 77.9 % 10/26/17 06:11 Band Neutrophils % 14.0 % (0-4) H 10/25/17 06:04 Lymphocytes % 14.1 % 10/26/17 06:11 Monocytes % 6.3 % 10/26/17 06:11 Eosinophils % 0.8 % 10/26/17 06:11 Basophils % 0.2 % 10/26/17 06:11 Neutrophils # 13.2 K/mcL (1.6-8.9) H 10/26/17 06:11 Lymphocytes # 2.4 K/mcL (0.6-4.6) 10/26/17 06:11 Monocytes # 1.1 K/mcL (0.0-1.3) 10/26/17 06:11 Eosinophils # 0.1 K/mcL (0.0-0.6) 10/26/17 06:11 Basophils # 0.0 K/mcL (0.0-0.2) 10/26/17 06:11 Platelet Estimate Normal (Normal) 10/25/17 06:04 Sodium 142 mEq/L (136-145) 10/26/17 06:11 Potassium 4.2 mEq/L (3.5-5.1) 10/26/17 06:11 Chloride 110 mEq/L (98-107) H 10/26/17 06:11 Carbon Dioxide 24 mEq/L (23-29) 10/26/17 06:11 BUN 16 mg/dL (6-20) 10/26/17 06:11 Creatinine 0.83 mg/dL (0.70-1.30) 10/26/17 06:11 Est GFR ( Amer) > 60 (> 60) 10/26/17 06:11 Est GFR (Non-Af Amer) > 60 (> 60) 05/08/18 06:11 BUN/Creatinine Ratio 19 (6-26) 10/26/17 06:11 Glucose 121 mg/dL (70-105) H 10/26/17 06:11 Calculated Osmolality 296 (280-300) 10/26/17 06:11 Calcium 8.6 mg/dL (8.6-10.3) 10/26/17 06:11 Magnesium 1.7 mg/dL (1.6-2.6) 10/25/17 06:04 TSH 0.477 mcIU/mL (0.340-5.600) 10/25/17 06:04 Urine Color Yellow (Yellow) 10/26/17 12:55 Urine Clarity Clear (Clear) 10/26/17 12:55 Urine pH 8.0 pH Units (5.0-8.0) 10/26/17 12:55 Ur Specific [place] 1.014 (1.010-1.025) 10/26/17 12:55 Urine Protein Negative mg/dL (Neg-Trace) 10/26/17 12:55 Urine Glucose (UA) Normal mg/dL (Normal) 10/26/17 12:55 Urine Ketones Negative mg/dL (Negative) 10/26/17 12:55 Urine Blood Negative (Negative) 10/26/17 12:55 Urine Nitrite Negative (Negative) 10/26/17 12:55 Urine Bilirubin Negative (Negative) 10/26/17 12:55 Urine Urobilinogen Normal mg/dL (Normal) 10/26/17 12:55 Ur Leukocyte Esterase Negative (Negative) 10/26/17 12:55 Urine Microscopic RBC 0-3 per hpf (0-3) 10/24/17 18:20 Urine Microscopic WBC 15-30 per hpf (0-3) H 10/24/17 18:20 Ur Squamous Epith Cells Many per lpf (None-Few) H 10/24/17 18:20 Amorphous Sediment Moderate (Few) H 10/24/17 18:20 Urine Bacteria Few per hpf (None-Few) 10/24/17 18:20 Hyaline Casts Few per lpf (None-Few) 10/24/17 18:20 Ur Culture Indicated? NO (NO) 10/26/17 12:55 Salicylates < 2.5 mg/dL (15.0-30.0) L 10/24/17 17:44 Urine Opiates Screen Positive ng/mL (Vhqyus=716) H 10/24/17 18:20 Acetaminophen < 10 mcg/mL (10-20) L 10/24/17 17:44 Ur Barbiturates Screen Negative ng/mL (Kubxca=217) 10/24/17 18:20 Ur Phencyclidine Scrn Negative ng/mL (Cutoff=25) 10/24/17 18:20 Ur Amphetamines Screen Positive ng/mL (Geabfr=1005) H 10/24/17 18:20 U Benzodiazepines Scrn Negative ng/mL (Kmoacj=631) 10/24/17 18:20 Urine Cocaine Screen Negative ng/mL (Cutoff= 300) 10/24/17 18:20 U Marijuana (THC) Screen Negative ng/mL (Cutoff = 50) 10/24/17 18:20 Ethyl Alcohol < 10 mg/dL (Less than 10) 10/24/17 17:44 - Impressions Impressions Chest X-Ray 10/25/17 16:04 IMPRESSION: No acute cardiopulmonary abnormality. D/ / Nash Temple / Nash Temple Interpreting Provider: Nash Temple Consult Discharge Plan - Plan Referrals: NONE,PCP [Primary Care Provider] -
[2017-10-26] MEDS ORDERED: Haloperidol Lactate 5 MG/ML VIAL IM ONE (14:27)
[2017-10-26] MEDS ORDERED: *HR* LORazepam 1 MG TABLET PO ONE (16:38)
[2017-10-26] MEDS ORDERED: Ziprasidone injection 20 MG/ML VIAL IM ONE (16:50)
[2017-10-26] MEDS: *HR* LORazepam 2 MG/ML VIAL IVP PRN (19:24)
[2017-10-26] MEDS ORDERED: OLANZapine 10 MG TAB.RAPDIS PO SCH (21:00)
[2017-10-26 23:17] VITALS: BP 136/76
--- NOTE | 2017-10-27 07:15 | Discharge Summary ---
- NOTES TO OUTPATIENT PROVIDER Notes to Outpatient Provider: Pt was admitted to observation unit for Orders not resulted at time of discharge: Pending orders 10/25/17 09:32 Culture,Blood [BC] Stat 10/27/17 04:00 Basic Metabolic Panel AM 0400 Complete Blood Count [HEME] AM 0400 10/28/17 04:00 Basic Metabolic Panel AM 0400 Complete Blood Count [HEME] AM 0400 10/29/17 04:00 Basic Metabolic Panel AM 0400 Complete Blood Count [HEME] AM 0400 Date of Encounter: 10/27/17 Time of Encounter: 09:10 - Discharge Diagnosis (1) Acute psychosis Priority: Primary Status: Acute Assessment and Plan: Patient is a history of schizophrenia and bipolar disorder. He is calm and sleeping until he is notified that he is going to . He states that he did not ever have a ride and didn't sign himself in and that he's not crazy. Pt has a sitter and is pink slipped. He will be discharged to for continued evaluation. (2) Polysubstance abuse Priority: Secondary Status: Resolved Assessment and Plan: Urine drug screen positive for opiates and amphetamines. (3) Leukocytosis Priority: Secondary Status: Acute Assessment and Plan: Resolved. Qualifiers: Leukocytosis type: unspecified Qualified Code(s): D72.829 - Elevated white blood cell count, unspecified (4) Acute kidney failure Priority: Secondary Status: Resolved Assessment and Plan: Resolved. Qualifiers: Acute renal failure type: unspecified Qualified Code(s): N17.9 - Acute kidney failure, unspecified (5) DVT prophylaxis Priority: Secondary Status: Acute Assessment and Plan: SCDs. Encourage ambulation. Hospital course: Mr. Conrad is a 27 year old male who was brought to the ED for evaluation after becoming violent and belligerent with his family at home. Pt was monitored and was pink-slipped with a sitter for safety. He had leukocytosis, likely reactive , which has resolved. He has been calm and has required medication at times for agitation. He is stable and appropriate for discharge to . Discharge discussed with: patient, nurse - Time Spent with Patient Total time spent providing and/or coordinating discharge services: - Discharge Medications Home Medications: Acetaminophen [Tylenol] 650 mg PO Q6HR PRN tablet 10/27/17 [Rx] Allergies/Adverse Reactions: 3 Allergy/AdvReac Type Severity Reaction Status Date / Time Penicillins Allergy Hives Verified 10/24/17 17:45 Date of admission: 10/24/17 22:35 Primary care physician: PCP NONE Discharging clinician: Cynthia Loyd Anticipated date of discharge: 10/27/17 - Constitutional Vitals: Temp Pulse Resp BP Pulse Ox 97.6 F 70 16 136/76 96 10/26/17 23:16 10/26/17 23:16 10/26/17 23:16 10/26/17 23:16 10/26/17 23:16 General appearance: Present: cooperative, A&O X 2, pleasant, no acute distress, answers questions appropriately - Head Head exam: Present: atraumatic, normal inspection, normocephalic - Eye Eye exam: Present: normal appearance, conjuntiva pink, sclera anicteric - Neck Neck exam general surgery: Present: supple, trachea midline. Absent: lymphadenopathy, tenderness - Respiratory Respiratory exam: Present: CTAB. Absent: accessory muscle use, chest wall tenderness, decreased breath sounds, rales, rhonchi, wheezes - Cardiovascular Cardiovascular exam: Present: RRR, +S1, +S2. Absent: diastolic murmur, gallop, rubs, systolic murmur - GI/Abdominal GI/Abdominal exam: Present: normal bowel sounds, soft. Absent: distended, hepatomegaly, tenderness - Extremities Exam Extremities exam: Present: normal capillary refill, normal inspection, warm, radial pulses palpable and symmetrical. Absent: calf tenderness, cyanotic, pedal edema, tenderness - Neurological Exam Neurological exam: Present: alert, oriented X3, no focal deficits. Absent: facial droop, speech deficit - Skin Skin exam: Present: dry, intact, normal color, warm. Absent: rash - Patient Status Disposition: Admitted As Inpatient Condition: Good Functional capacity at discharge: independent ambulation Overall status at discharge: patient is progressing back to baseline - Discharge Instructions Follow Up With: NONE,PCP [Primary Care Provider] - - Diet and Activity Activity: increase activity as tolerated Diet: advance to your usual diet
[2017-10-27 07:52] LABS: BUN/Creatinine Ratio 13 (6-26); Blood Urea Nitrogen 11 mg/dL (6-20); Calcium 9.2 mg/dL (8.6-10.3); Carbon Dioxide 23 mEq/L (23-29); Chloride 110 mEq/L (98-107); Glucose 94 mg/dL (70-105); Osmolality,Calculated 289 (280-300); Potassium 4.3 mEq/L (3.5-5.1); Sodium 140 mEq/L (136-145); eGFR For African Americans > 60 (> 60); eGFR For Non-African Americans > 60 (> 60)
[2017-10-27 08:26] LABS: Basophils % 0.4 %; Eosinophils # 0.1 K/mcL (0.0-0.6); Eosinophils % 0.9 %; Hematocrit 42.1 % (37.5-50.1); Hemoglobin 13.5 g/dL (12.9-16.9); Immature Granulocytes % 0.3 % (0-4); Lymphocytes # 2.8 K/mcL (0.6-4.6); Lymphocytes % 28.6 %; Mean Corpuscular HGB Conc 32.1 g/dL (31.6-35.5); Mean Corpuscular Hemoglobin 27.1 pg (28.0-33.3); Mean Corpuscular Volume 84.5 fL (83.0-100.0); Mean Platelet Volume 10.2 fL (9.4-12.4); Monocytes # 0.7 K/mcL (0.0-1.3); Monocytes % 7.3 %; Neutrophils # 6.2 K/mcL (1.6-8.9); Platelet Count 319 K/mcL (140-400); Red Blood Count 4.98 M/mcL (4.19-5.50); Red Cell Distribution Width 15.5 % (11.5-14.5); Segmented Neutrophils % 62.5 %
[2017-10-27] MEDS: *HR* LORazepam 2 MG/ML VIAL IVP PRN (09:45)
== END 2017-10-27 11:30 | disposition other institution (70) ==
LOC: EMEROO 17:36 → 3BNU 17:36
PROVIDERS: ADMIT Internal Medicine; ATTEND Internal Medicine

== ENCOUNTER 2017-10-27 11:24 | Inpatient (IN) ==
[2017-10-27] MEDS ORDERED: Acetaminophen 325 MG TABLET PO PRN (12:11)
[2017-10-27] MEDS ORDERED: MOM Conc 10 ML UD.LIQ PO PRN (12:11)
[2017-10-27] MEDS ORDERED: *HR* LORazepam 1 MG TABLET PO PRN ×2 (12:11→12:17)
[2017-10-27] MEDS ORDERED: Mag Hydrox/Al Hydrox/Simeth 30 ML UDC PO PRN (12:11)
[2017-10-27] MEDS ORDERED: Haloperidol Lactate 5 MG/ML VIAL IM PRN ×2 (12:11→12:15)
[2017-10-27] MEDS ORDERED: *HR* LORazepam 2 MG/ML VIAL IM PRN ×2 (12:11→12:17)
--- NOTE | 2017-10-27 13:13 | Psychiatry History & Physical ---
Date of Encounter: 10/27/17 Time of Encounter: 12:40 History of Present Illness Patient Stated Chief Complaint: "I am the ramonita ceja." Medicare Admission Attestation: For traditional Medicare patients the provided hospital inpatient services are reasonable and necessary and in the case of services not specified as inpatient -only under 42 CFR 419.22 (n), that they are appropriately provided as inpatient services in accordance 42 CFR 412.3. For Critical Access Hospital the patient may reasonably be expected to be discharged or transferred to a hospital within 96 hours after admission to the Critical Access Hospital. Admitted From: Intrahospital Transfer Plans for Post Hospital Care: Home History of Present Illness: Mr. Conrad is a 27 year old male with a significant history of psychosis potentially related to his ongoing drug use including methamphetamines and opiates. He presented to the hospital very agitated and acting bizarrely. He was admitted to the medical floor for stabilization and then transferred to psychiatry once medically cleared. Patient was initially quite sedated secondary to require so much medication for agitation in the emergency room. On evaluation on the medical floor patient reported grandiose delusions and was very disorganized in his thought process. He required multiple doses of medications prior to transfer here to for stabilization. Patient has 2-3 previous psychiatric admissions here for psychosis. They were initially thought to be related to the drugs. Patient has been tried on Seroquel in the past. Today he remains delusional reporting that he is "a ramonita Armstrong Anna Ceja." He is unable to give much history secondary to being confused and sleepy. Past Med Surg Social Fam HX - Past Medical History Medical history: asthma, other - Past Psychiatric History Psychiatric history: Reports: previous psychiatric hospitalization, other ( Substance abuse) Past psychiatric history details: Patient has 4 previous admissions here for psychosis. He also has a chronic polysubstance abuse including opiates and methamphetamine. Family psychiatric history: Unknown Family History of Suicide: None - Past Surgical History Surgical History: no surgical history - Social History Smoking Status: Current every day smoker Smokeless Tobacco Status: No Alcohol use: occasionally Drug use: cocaine, opiates, marijuana, methamphetamine, IV Drug Use Medications & Allergies Acetaminophen [Tylenol] 650 mg PO Q6HR PRN tablet 10/27/17 [Rx] 3 Allergy/AdvReac Type Severity Reaction Status Date / Time Penicillins Allergy Hives Verified 10/24/17 17:45 Review of Systems ROS unobtainable: due to patient condition Psychiatric: Reports: auditory hallucinations, irritability, mood swings Exam - HEENT Head exam IM: Present: atraumatic, normal inspection Eye exam IM: Present: conjunctival injection ENT exam IM: Present: normal exam - Respiratory Respiratory exam IM: Present: CTAB - GI/Abdominal GI/Abdominal exam IM: Absent: tenderness - Skin Skin exam IM: Present: dry - Additional Information Additional Information: Exam Limited due to patient's mental status and inability to participate in physical exam. - Constitutional General appearance: well-groomed, well-nourished - Musculoskeletal Gait: slow Station: slouched Strength & Tone: other (Unable to assess) - Psychiatric Patient Orientation: Yes Person Level of alertness: Sedated Psychomotor activity: Slowed Eye Contact: Fleeting Contact Mood Description: Euthymic/stable Affect description: congruent with mood, labile, incongruent with mood Speech Volume: Loud Speech pattern: garbled, rambling, excessive Language & Vocabulary: limited Thought Process: Goal Oriented, Disorganized Thought Content: No Suicidal ideation, No Homicidal ideation, No Overt delusions , Yes Paranoid delusion, Yes Grandiose delusion Perceptual Disturbances: No Auditory hallucinations, No Visual hallucinations Memory Description: Immediate Impaired, Recent Impaired, Remote Impaired Patient Reliability: Not Reliable Historian Fund of knowledge: Yes average Intelligence Estimate: Average Judgment: Poor Insight: None Assessment and Plan (1) Psychosis Current visit: No Status: Acute Plan: Admit inpatient for safety and stabilization, Close observation, Suicide Precautions per unit protocol, Encourage participation in unit milieu, Group Therapy, Monitor sleep, Monitor appetite Additional Plan: We will admit to 1A for psychiatric stabilization. File probate paperwork as patient remains delusional, confused and psychotic and will be unable to be discharged at this time. We will start Geodon 20 mg by mouth twice a day for psychotic symptoms. Monitor for side effects. Medications for agitation only if absolutely necessary. Risks, benefits, side effects, alternatives discussed w/pt: Yes Patient agreeable to treatment: Yes Plans for Post Hospital Care: Home Estimated Length of Stay (Days): 3 Qualifiers: Psychosis type: unspecified psychosis type Qualified Code(s): F29 - Unspecified psychosis not due to a substance or known physiological condition (2) Amphetamine abuse Current visit: No Status: Acute Plan: Admit inpatient for safety and stabilization Additional Plan: Patient psychosis is likely exacerbated by his drug use. However given the multiple hospitalizations related to his psychosis there may be an underlying schizophrenia versus bipolar disorder. We will of course encouraged patient to discontinue drug use. Risks, benefits, side effects, alternatives discussed w/pt: Yes Patient agreeable to treatment: Yes Plans for Post Hospital Care: Home (3) Opiate abuse, episodic Current visit: No Status: Acute Plan: Admit inpatient for safety and stabilization Additional Plan: Encouraged patient to discontinue drug.
[2017-10-27] MEDS: Ziprasidone 20 MG CAPSULE PO SCH (21:33)
[2017-10-28] MEDS: Ziprasidone 20 MG CAPSULE PO SCH ×2 (08:35→21:19)
--- NOTE | 2017-10-28 10:40 | Psychiatry Progress Note ---
Date of Encounter: 10/28/17 Time of Encounter: 09:45 Subjective Interval history: Giancarlo is seen today for follow-up after recent admission for psychosis and polysubstance abuse. Patient reports she is ready to go home. He then starts talking about being "the triple [place] of [facility]." He he then starts repeating numbers and ends by stating "I am a [place] among angels." Reports that his mom promoted him last week to be the ap[place] last week. Patient appears to have some thought blocking. He is taking medications right now. Review of Systems ROS limited: due to patient condition Psychiatric: Reports: auditory hallucinations, irritability, mood swings, other (delusions) Results - Vital Signs Vital Signs: Temp Pulse Resp BP 97.3 F L 85 16 130/96 10/28/17 09:00 10/28/17 09:00 10/28/17 09:00 10/28/17 09:00 Assessment and Plan (1) Psychosis Current visit: No Status: Acute Plan: Continue hospitalization, Close observation, Suicide Precautions per unit protocol, Encourage participation in unit milieu, Group Therapy, Monitor sleep, Monitor appetite Additional Plan: Increase Geodon for psychotic symptoms. Probate hearing today for continued hospitalization Encouarge group attendance and appropriate ADLs. Risks, benefits, side effects, alternatives discussed w/pt: Yes Patient agreeable to treatment: Yes Qualifiers: Psychosis type: unspecified psychosis type Qualified Code(s): F29 - Unspecified psychosis not due to a substance or known physiological condition (2) Amphetamine abuse Current visit: No Status: Acute Risks, benefits, side effects, alternatives discussed w/pt: Yes Patient agreeable to treatment: Yes (3) Opiate abuse, episodic Current visit: No Status: Acute Consult Discharge Plan - Plan Referrals: NONE,PCP [Primary Care Provider] - Psychiatry Exam - Constitutional Vitals: Temp Pulse Resp BP 97.3 F L 85 16 130/96 10/28/17 09:00 10/28/17 09:00 10/28/17 09:00 10/28/17 09:00 General appearance: well-groomed, unkempt - Musculoskeletal Gait: normal Station: relaxed Strength & Tone: normal for patient - Psychiatric Patient Orientation: Yes Person, Yes Place Level of alertness: Alert Behavior: agitated, restless, uncooperative, impulsive Psychomotor activity: Increased Eye Contact: Intense Contact Mood Description: Euthymic/stable Affect description: labile, inappropriate to situation Speech Volume: Loud Speech pattern: rambling, excessive Language & Vocabulary: limited Thought Process: Circumstantial, Flight of Ideas Thought Content: Yes Grandiose delusion Perceptual Disturbances: Yes Reacting to internal stimuli, No Auditory hallucinations, No Visual hallucinations Memory Description: Immediate Intact, Recent Impaired, Remote Impaired Patient Reliability: Not Reliable Historian Fund of knowledge: No abstraction ability, Yes average, No aware of current events Intelligence Estimate: Average Judgment: Poor Insight: None
[2017-10-28] MEDS: Ibuprofen 400 MG TABLET PO PRN (19:24)
[2017-10-28] MEDS: traZODone 50 MG TABLET PO PRN (21:22)
[2017-10-29] MEDS: Ziprasidone 20 MG CAPSULE PO SCH ×2 (09:06→21:00)
--- NOTE | 2017-10-29 13:26 | Psychiatry Progress Note ---
Date of Encounter: 10/29/17 Time of Encounter: 08:50 Subjective Interval history: Giancarlo is seen today for follow-up of his psychosis. Last night patient defecated in his own bed in order to be moved to the quiet room. He remained agitated at times especially when trying to discuss discharge planning. Probate hearing yesterday fouond probable cause and patient will remain hospitalized until symptoms improve. Patient is not willing to get participate in group activities. We will encourage patient to take medications. He does not feel he needs medications, "I am not sick I need to go home." Review of Systems ROS limited: due to patient condition (Due to patient's mental status, psychosis , agitation) Psychiatric: Reports: auditory hallucinations, irritability, mood swings, other (delusions) Results - Vital Signs Vital Signs: Temp Pulse Resp BP 97.5 F L 121 18 121/82 10/29/17 09:00 10/29/17 09:00 10/29/17 09:00 10/29/17 09:00 Assessment and Plan (1) Psychosis Current visit: No Status: Acute Plan: Continue hospitalization, Close observation, Suicide Precautions per unit protocol, Encourage participation in unit milieu, Group Therapy, Monitor sleep, Monitor appetite Additional Plan: Continue Geodon at current dosage. Monitor for oversedation. PRNs when necessary for severe agitation. Risks, benefits, side effects, alternatives discussed w/pt: Yes Patient agreeable to treatment: Yes Qualifiers: Psychosis type: unspecified psychosis type Qualified Code(s): F29 - Unspecified psychosis not due to a substance or known physiological condition (2) Amphetamine abuse Current visit: No Status: Acute Risks, benefits, side effects, alternatives discussed w/pt: Yes Patient agreeable to treatment: Yes (3) Opiate abuse, episodic Current visit: No Status: Acute Consult Discharge Plan - Plan Referrals: [facility] [Outside] - 11/08/17 10:30 am (The above appointment is with Jen Devine for outpatient mental health and substance abuse counseling services. You will also see Jessi Drake for outpatient psychiatric assessment and medication management services on 11/09/2017 at 1:00 PM.) Devi Franklin [Advanced Practice Nurse] - 11/16/17 12:10 pm (The above appointment is with Devi Franklin CNP, at Primary Care within [facility]. This appointment is to establish you with a primary care provider. Your needs for medication and/or Vivitrol will be assessed and treated as indicated as well. Please arrive 15 minutes early to complete paperwork. Please bring your insurance card, photo ID and list of current medications to your first appointment. The above appointment(s) reflects first availability. You may contact the office regularly to check for cancellations that may allow you to be seen sooner.) Psychiatry Exam - Constitutional Vitals: Temp Pulse Resp BP 97.5 F L 121 18 121/82 10/29/17 09:00 10/29/17 09:00 10/29/17 09:00 10/29/17 09:00 General appearance: well-nourished, unkempt - Musculoskeletal Gait: other (Lying in bed) Station: relaxed Strength & Tone: other (Patient would not allow exam) - Psychiatric Patient Orientation: Yes Person, No Time, Yes Place, Yes Circumstance Level of alertness: Alert Behavior: agitated, restless, uncooperative Psychomotor activity: Normal Eye Contact: Intense Contact Mood Description: Angry, Labile Affect description: labile Speech Volume: Loud Speech pattern: rambling, excessive, repetetive Language & Vocabulary: high school level Thought Process: Disorganized, Perseveration Thought Content: No Suicidal ideation, No Homicidal ideation, Yes Christianity delusion, Yes Grandiose delusion Perceptual Disturbances: Yes Reacting to internal stimuli, No Auditory hallucinations, No Visual hallucinations Attention Span Ability: Unable to Focus Memory Description: Immediate Impaired, Recent Impaired, Remote Impaired Patient Reliability: Not Reliable Historian Fund of knowledge: Yes average Judgment: Poor Insight: None
[2017-10-29] MEDS: Ibuprofen 400 MG TABLET PO PRN (18:22)
[2017-10-29] MEDS: hydrOXYzine pamoate 25 MG CAPSULE PO PRN (20:59)
[2017-10-29] MEDS: traZODone 50 MG TABLET PO PRN (20:59)
[2017-10-30] MEDS: Ibuprofen 400 MG TABLET PO PRN ×2 (10:26→21:48)
[2017-10-30] MEDS: Ziprasidone 20 MG CAPSULE PO SCH (10:27)
--- NOTE | 2017-10-30 17:01 | Psychiatry Progress Note ---
Date of Encounter: 10/30/17 Time of Encounter: 14:20 Subjective Interval history: Pt is a 27 yo ,, male, who presents for Schizoaffective bipolar type and polysubstance abuse . Pt noted that he feels really good today. Pt continues to remain manic/hypomanic and delusional. Pt denied any side effects to current medications. Pt noted he felt safe and comfortable on the unit. Pt was in agreement with current treatment plan. Pt noted that he is doing alright today. Pt noted he slept a lot last night. Pt noted his appetite is great. Pt rated his depression a 0, on a scale of zero to ten with ten being the worst and zero being none. Pt rate his anxiety a 6, on the same scale. Pt denied any auditory or visiual hallucinations. However pt continues to display delusions, associated with his room number, and his magic shoes. Pt denied any current thoughts to harm himself or anyone else. No TD noted, AIMS=0 Tobacco: 1 ppd Alcohol: couple per week Street: marijuana.daily.and downers like heroin. However pt was negative for heroin and positive for cocaine and amphetamines Caffeine: 2-3 drinks per day Pt denies any hx of HIV, TBI or Seizures. Pt noted he is Hep C positive MSE: Alert and Oriented x4 Appearance: appropriately groomed dressed in civilian workout attire Behavior: hypomanic , agitated Speech: elevated almost pressured, increase tone, increase rate Mood: great Affect: mood congruent Thought content: no HI noted, no SI noted, delusions noted Psychosis: questionable, currently does not appear to be responding to internal stimuli. Thought Process: tangential Judgment: poor. Insight: poor. Assessment/Plan 1.Interval hx 2.Continue current medications 3.Review current labs 4.Pt had an opportunity to ask questions and discuss current treatment plan. 5.Supportive therapy was provided 6.Pt encouraged to consider group or individual therapy 7.Pt was in agreement with treatment plan. 8.Pt was educated on the risks benefits and side effects of current medications. Review of Systems Psychiatric: Reports: auditory hallucinations, irritability, mood swings, other (delusions) Results - Vital Signs Vital Signs: Temp Pulse Resp BP 98.9 F 105 18 125/88 10/30/17 09:00 10/30/17 09:00 10/30/17 09:00 10/30/17 09:00 Consult Discharge Plan - Plan Referrals: [facility] [Outside] - 11/08/17 10:30 am (The above appointment is with Jen Devine for outpatient mental health and substance abuse counseling services. You will also see Jessi Noelle for outpatient psychiatric assessment and medication management services on 11/09/2017 at 1:00 PM.) Devi Franklin [Advanced Practice Nurse] - 11/16/17 12:10 pm (The above appointment is with Devi Franklin CNP, at Primary Care within [facility]. This appointment is to establish you with a primary care provider. Your needs for medication and/or Vivitrol will be assessed and treated as indicated as well. Please arrive 15 minutes early to complete paperwork. Please bring your insurance card, photo ID and list of current medications to your first appointment. The above appointment(s) reflects first availability. You may contact the office regularly to check for cancellations that may allow you to be seen sooner.) Psychiatry Exam - Constitutional Vitals: Temp Pulse Resp BP 98.9 F 105 18 125/88 10/30/17 09:00 10/30/17 09:00 10/30/17 09:00 10/30/17 09:00
[2017-10-30] MEDS ORDERED: Nicotine 2 MG GUM BC PRN (17:54)
[2017-10-30] MEDS: hydrOXYzine pamoate 25 MG CAPSULE PO PRN (21:48)
[2017-10-30] MEDS: Ziprasidone 80 MG CAPSULE PO SCH (21:48)
[2017-10-31] MEDS: Ziprasidone 80 MG CAPSULE PO SCH ×2 (09:28→20:30)
--- NOTE | 2017-10-31 14:31 | Psychiatry Progress Note ---
Date of Encounter: 10/31/17 Time of Encounter: 14:00 Subjective Interval history: Pt is a 27 yo ,, male, who presents for Schizoaffective bipolar type and polysubstance abuse . Pt noted that he feels Better doc. Pt continues to remain manic/hypomanic and delusional however a significant reduction was noted. Pt denied any side effects to current medications. Pt noted he felt safe and comfortable on the unit. Pt was in agreement with current treatment plan. Pt noted that he is doing alright today. Pt noted he slept 10 hours last night. Pt noted his appetite is great. Pt rated his depression a 0, on a scale of zero to ten with ten being the worst and zero being none. Pt rate his anxiety a 0, on the same scale. Pt denied any auditory or visiual hallucinations. Pt denied any current thoughts to harm himself or anyone else. No TD noted, AIMS=0 Tobacco: 1 ppd Alcohol: couple per week Street: marijuana.daily.and downers like heroin. However pt was negative for heroin and positive for cocaine and amphetamines Caffeine: 2-3 drinks per day MSE: Alert and Oriented x3 Appearance: appropriately groomed dressed in civilian workout attire Behavior: hypomanic, yet redirectable and polite Speech: fluent, normal tone, normal rate Mood: good Affect: mood congruent Thought content: no HI noted, no SI noted, hx of delusions noted Psychosis: questionable, currently does not appear to be responding to internal stimuli. Thought Process: tangential, yet goal oriented and logical at time Judgment: poor/questionable. Insight: poor/questionable. Assessment/Plan 1.Interval hx 2.Continue current medications 3.Review current labs 4.Pt had an opportunity to ask questions and discuss current treatment plan. 5.Supportive therapy was provided 6.Pt encouraged to consider group or individual therapy 7.Pt was in agreement with treatment plan. 8.Pt was educated on the risks benefits and side effects of current medications including no medications, additonally pt was educated on his current treatment plan and offered questions or feedback, pt was in agreement.. 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 [Outside] - 11/08/17 10:30 am (The above appointment is with Jen Devine for outpatient mental health and substance abuse counseling services. You will also see Jessi Drake for outpatient psychiatric assessment and medication management services on 11/09/2017 at 1:00 PM.) Devi Franklin [Advanced Practice Nurse] - 11/16/17 12:10 pm (The above appointment is with Devi Franklin CNP, at Primary Care within [facility]. This appointment is to establish you with a primary care provider. Your needs for medication and/or Vivitrol will be assessed and treated as indicated as well. Please arrive 15 minutes early to complete paperwork. Please bring your insurance card, photo ID and list of current medications to your first appointment. The above appointment(s) reflects first availability. You may contact the office regularly to check for cancellations that may allow you to be seen sooner.) Psychiatry Exam - Constitutional Vitals: Temp Pulse Resp BP 98.4 F 101 16 135/82 10/31/17 09:00 10/31/17 09:00 10/31/17 09:00 10/31/17 09:00
[2017-10-31 15:14] LABS: Basophils # 0.1 K/mcL (0.0-0.2); Basophils % 0.7 %; Eosinophils # 0.1 K/mcL (0.0-0.6); Eosinophils % 1.1 %; Hematocrit 41.7 % (37.5-50.1); Hemoglobin 13.5 g/dL (12.9-16.9); Immature Granulocytes % 2.2 % (0-4); Lymphocytes # 3.2 K/mcL (0.6-4.6); Lymphocytes % 28.9 %; Mean Corpuscular HGB Conc 32.4 g/dL (31.6-35.5); Mean Corpuscular Hemoglobin 27.2 pg (28.0-33.3); Mean Corpuscular Volume 84.1 fL (83.0-100.0); Mean Platelet Volume 9.6 fL (9.4-12.4); Monocytes # 0.9 K/mcL (0.0-1.3); Monocytes % 8.4 %; Neutrophils # 6.4 K/mcL (1.6-8.9); Platelet Count 357 K/mcL (140-400); Red Blood Count 4.96 M/mcL (4.19-5.50); Segmented Neutrophils % 58.7 %
[2017-10-31 15:30] LABS: BUN/Creatinine Ratio 21 (6-26); Blood Urea Nitrogen 20 mg/dL (6-20); Calcium 9.4 mg/dL (8.6-10.3); Carbon Dioxide 25 mEq/L (23-29); Chloride 106 mEq/L (98-107); Glucose 121 mg/dL (70-105); Osmolality,Calculated 290 (280-300); Potassium 4.3 mEq/L (3.5-5.1); Sodium 138 mEq/L (136-145); eGFR For African Americans > 60 (> 60); eGFR For Non-African Americans > 60 (> 60)
[2017-10-31] MEDS: hydrOXYzine pamoate 25 MG CAPSULE PO PRN ×2 (15:39→22:26)
[2017-10-31] MEDS: traZODone 50 MG TABLET PO PRN (22:26)
[2017-11-01] MEDS: Ziprasidone 80 MG CAPSULE PO SCH ×2 (09:59→20:51)
--- NOTE | 2017-11-01 12:36 | Psychiatry Progress Note ---
Date of Encounter: 11/01/17 Time of Encounter: 10:00 Subjective Interval history: Pt is a 27 yo ,, male, who presents for Schizoaffective bipolar type and polysubstance abuse . Pt noted that he feels Really good. Pt continues to improve, to the point to coordinate discharge planning. Pt denied any side effects to current medications. Pt noted he felt safe and comfortable on the unit. Pt was in agreement with current treatment plan. Pt noted that he is doing alright today. Pt noted he slept 10 hours last night. Pt noted his appetite is great. Pt rated his depression a 0, on a scale of zero to ten with ten being the worst and zero being none. Pt rate his anxiety a 0, on the same scale. Pt denied any auditory or visiual hallucinations. Pt denied any current thoughts to harm himself or anyone else. No TD noted, AIMS=0 Tobacco: 1 ppd Alcohol: couple per week Street: marijuana.daily.and downers like heroin. However pt was negative for heroin and positive for cocaine and amphetamines Caffeine: 2-3 drinks per day MSE: Alert and Oriented x3 Appearance: appropriately groomed dressed in civilian workout attire Behavior: friendly, courteous and polite Speech: fluent, normal tone, normal rate Mood: good Affect: mood congruent Thought content: no HI noted, no SI noted, hx of delusions noted Psychosis: questionable, currently does not appear to be responding to internal stimuli. Thought Process: tangential, yet goal oriented and logical at time Judgment: poor/questionable. Insight: poor/questionable. Assessment/Plan 1.Interval hx 2.Continue current medications 3.Review current labs 4.Pt had an opportunity to ask questions and discuss current treatment plan. 5.Supportive therapy was provided 6.Pt encouraged to consider group or individual therapy 7.Pt was in agreement with treatment plan. 8.Pt was educated on the risks benefits and side effects of current medications including no medications, additonally pt was educated on his current treatment plan and offered questions or feedback, pt was in agreement.. 9. Continue to coordinate discharge planning. Review of Systems Psychiatric: Reports: auditory hallucinations, irritability, mood swings, other (delusions) Results - Vital Signs Vital Signs: Temp Pulse Resp BP 97.7 F 84 20 126/71 11/01/17 09:00 11/01/17 09:00 11/01/17 09:00 11/01/17 09:00 - Labs Labs: Laboratory Results - last 24 hr 10/31/17 10/31/17 14:47 14:47 WBC 10.9 RBC 4.96 Hgb 13.5 Hct 41.7 MCV 84.1 MCH 27.2 L MCHC 32.4 RDW 15.0 H Plt Count 357 MPV 9.6 Immature Gran % 2.2 Seg Neutrophils % 58.7 Lymphocytes % 28.9 Monocytes % 8.4 Eosinophils % 1.1 Basophils % 0.7 Neutrophils # 6.4 Lymphocytes # 3.2 Monocytes # 0.9 Eosinophils # 0.1 Basophils # 0.1 Sodium 138 Potassium 4.3 Chloride 106 Carbon Dioxide 25 BUN 20 Creatinine 0.97 Est GFR ( Amer) > 60 Est GFR (Non-Af Amer) > 60 BUN/Creatinine Ratio 21 Glucose 121 H Calculated Osmolality 290 Calcium 9.4 Assessment and Plan (1) Schizoaffective disorder, bipolar type Current visit: Yes Status: Acute (2) Amphetamine abuse Current visit: No Status: Acute Risks, benefits, side effects, alternatives discussed w/pt: Yes Patient agreeable to treatment: Yes (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 You will also see Jessi Drake for outpatient psychiatric assessment and medication management services on 11/09/2017 at 1:00 PM.) Devi Franklin [Advanced Practice Nurse] - 11/16/17 12:10 pm (The above appointment is with Devi Franklin CNP, at Primary Care within [facility]. This appointment is to establish you with a primary care provider. Your needs for medication and/or Vivitrol will be assessed and treated as indicated as well. Please arrive 15 minutes early to complete paperwork. Please bring your insurance card, photo ID and list of current medications to your first appointment. The above appointment(s) reflects first availability. You may contact the office regularly to check for cancellations that may allow you to be seen sooner.) Psychiatry Exam - Constitutional Vitals: Temp Pulse Resp BP 97.7 F 84 20 126/71 11/01/17 09:00 11/01/17 09:00 11/01/17 09:00 11/01/17 09:00 General appearance: age & developmentally appropriate, well-groomed, well- nourished - Musculoskeletal Gait: normal Strength & Tone: normal for patient - Psychiatric Patient Orientation: Yes Person, Yes Time, Yes Place Level of alertness: Alert Behavior: calm, cooperative, anxious Psychomotor activity: Increased Eye Contact: Maintains Eye Contact Mood Description: Euthymic/stable, Anxious Affect description: congruent with mood Speech Volume: Normal Speech pattern: normal rate, fluent Language & Vocabulary: consistent with education Thought Process: Intact, Logical, Linear, Tangential Thought Content: Yes Intact Attention Span Ability: Capable of Focused Attention Memory Description: Grossly Intact Patient Reliability: Questionable Historian Fund of knowledge: Yes average Intelligence Estimate: Average Judgment: Fair Insight: Partial
[2017-11-01] MEDS: Ibuprofen 400 MG TABLET PO PRN (20:52)
[2017-11-02] MEDS: Ziprasidone 80 MG CAPSULE PO SCH (09:23)
[2017-11-02] MEDS: Ibuprofen 400 MG TABLET PO PRN (09:24)
[2017-11-02 09:48] VITALS: BP 139/87
--- NOTE | 2017-11-02 13:22 | Discharge Summary ---
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 Priority: Primary Status: Acute Medications - Discharge Medications Prescriptions: hydrOXYzine pamoate [HydrOXYzine Pamoate] 25 mg PO TID PRN #90 capsule PRN Reason: Anxiety traZODone [TraZODone] 50 mg PO HS PRN #30 tablet PRN Reason: Insomnia Ziprasidone [Geodon] 80 mg PO BID #60 capsule Acetaminophen [Tylenol] 650 mg PO Q6HR PRN tablet 10/27/17 [Rx] Ziprasidone [Geodon] 80 mg PO BID #60 capsule 11/02/17 [Rx] hydrOXYzine pamoate [HydrOXYzine Pamoate] 25 mg PO TID PRN #90 capsule 11/02/17 [Rx] traZODone [TraZODone] 50 mg PO HS PRN #30 tablet 11/02/17 [Rx] 3 Allergy/AdvReac Type Severity Reaction Status Date / Time Penicillins Allergy Hives Verified 10/24/17 17:45 Results Procedures and tests throughout hospitalization: Completed Lab Orders Category Date Time Status Basic Metabolic Panel Routine Lab 10/31/17 14:47 Completed CBC [Complete Blood Count] [HEME] Routine Lab 10/31/17 14:47 Completed Provider Date of admission: 10/27/17 11:24 Primary care physician: PCP NONE Discharging clinician: Joaquin Lamas Psychiatry Exam - Constitutional Vitals: Temp Pulse Resp BP 98.2 F 116 16 139/87 11/02/17 09:00 11/02/17 09:00 11/02/17 09:00 11/02/17 09:00 - Psychiatric Patient Orientation: Yes Person, Yes Time, Yes Place, Yes Circumstance Level of alertness: Alert Behavior: calm, cooperative Psychomotor activity: Normal Eye Contact: Maintains Eye Contact Mood Description: Euthymic/stable Affect description: congruent with mood Speech Volume: Normal Speech pattern: normal rate Language & Vocabulary: consistent with education Thought Process: Intact, Logical, Linear, Goal Oriented Thought Content: Yes Intact Attention Span Ability: Capable of Focused Attention Memory Description: Grossly Intact Patient Reliability: Questionable Historian Fund of knowledge: Yes average Intelligence Estimate: Average Judgment: Fair Insight: Partial Hospital Course Hospital course: Pt is a 27 yo ,, male, who presents for Schizoaffective bipolar type and polysubstance abuse . Pt noted that he feels Really good.....I feel ready to be discharged. Pt continues to improve, to the point to coordinate discharge planning. PT noted he felt safe and comfortable for D/C home. Pt denied any side effects to current medications. Pt noted he felt safe and comfortable on the unit. Pt was in agreement with current treatment plan. Pt noted that he is doing alright today. Pt noted he slept 10 hours last night. Pt noted his appetite is great.....I eat all the time. Pt rated his depression a 0, on a scale of zero to ten with ten being the worst and zero being none. Pt rate his anxiety a 0, on the same scale. Pt denied any auditory or visiual hallucinations. Pt denied any current thoughts to harm himself or anyone else. No TD noted, AIMS=0 Tobacco: 1 ppd Alcohol: couple per week Street: marijuana.daily.and downers like heroin. However pt was negative for heroin and positive for cocaine and amphetamines Caffeine: 2-3 drinks per day MSE: Alert and Oriented x3 Appearance: appropriately groomed dressed in civilian workout attire Behavior: friendly, courteous and polite Speech: fluent, normal tone, normal rate Mood: good Affect: mood congruent Thought content: no HI noted, no SI noted, hx of delusions noted Psychosis: questionable, currently does not appear to be responding to internal stimuli. Thought Process: tangential, yet goal oriented and logical at time Judgment: poor/questionable. Insight: poor/questionable. Assessment/Plan 1.Interval hx 2.Continue current medications 3.Review current labs (currently normal 10/31/17) 4.Pt had an opportunity to ask questions and discuss current treatment plan. 5.Supportive therapy was provided 6.Pt encouraged to consider group or individual therapy 7.Pt was in agreement with treatment plan. 8.Pt was educated on the risks benefits and side effects of current medications including no medications, additionally pt was educated on his current treatment plan and offered questions or feedback, pt was in agreement.. 9.Discharge pt home with mother. 10. Follow up with all scheduled appointments. 11. Take all medications as prescribed. 12. abstain from any alcohol or illicit substances 13. Pt educated on on 90 meetings in 90 days, staying sober and obtaining a sponsor. Time spent discussing smoking cessation with patient: 3 to 10 minutes Does patient wish to continue nicotine replacement upon disc: No - Time Spent with Patient Total time spent providing and/or coordinating discharge services: Greater than 30 minutes Assessment and Plan - Patient/Caregiver Discharge Instructions Activity: resume usual activities as tolerated - Follow up Plan Follow up with: Oscar Stovall [facility] [Outside] - 11/08/17 10:30 am (The above appointment is with Jen Devine for outpatient mental health and substance abuse counseling services. You will also see Jessi Drake for outpatient psychiatric assessment and medication management services on 11/09/2017 at 1:00 PM.) Devi Franklin [Advanced Practice Nurse] - 11/16/17 12:10 pm (The above appointment is with Devi Franklin CNP, at Primary Care within [facility]. This appointment is to establish you with a primary care provider. Your needs for medication and/or Vivitrol will be assessed and treated as indicated as well. Please arrive 15 minutes early to complete paperwork. Please bring your insurance card, photo ID and list of current medications to your first appointment. The above appointment(s) reflects first availability. You may contact the office regularly to check for cancellations that may allow you to be seen sooner.) Functional capacity at discharge: independent ambulation Overall status at discharge: patient is back to baseline Disposition: Home, Self-Care Quality - Multiple Antipsychotics Patient discharged on 2 or more antipsychotic medications: No
== END 2017-11-02 14:30 | disposition home or self-care (01) | DRG 750 ==
LOC: 1ANU 11:24 → SUATTDRO 11:24
PROVIDERS: ADMIT Student in an Organized Health Care Education/Training Program; ATTEND General Practice

== ENCOUNTER 2018-01-12 16:23 | Observation (INO) ==
--- NOTE | 2018-01-12 16:48 | Emergency Department Note ---
Disposition Clinical Impression: Methamphetamine abuse, Altered mental status, Hallucinations, Psychosis, Suicidal ideation, Leukocytosis Disposition: Still a Patient Condition: Undetermined Referrals: NONE,PCP [Primary Care Provider] - Forms: ED Satisfaction Letter Altered Mental Status HPI - General Chief Complaint: ED Altered Mental Status Stated Complaint: AMS Time Seen by Provider: 01/12/18 16:28 Source: EMS Limitations: altered mental status - History of Present Illness HPI Narrative: Patient is a 27-year-old male presenting from [facility] for altered mental status. The patient is actively confabulating, stating that people are trying to harm his family and he is trying to help them. The patient 's pupils are dilated and unreactive to light, he does not make eye contact, or respond to questioning. The patient appears to have cracked, bleeding lips and poor dentition. Patient' s skin appears to be dry, intact, reddish in color, there is no cyanosis or diaphoresis noted. He is moving all 4 extremities without difficulty. There are no obvious signs of trauma, trachea is midline, with symmetrical chest rise and fall. - Related Data Previous Rx's Medication Instructions Recorded Acetaminophen [Tylenol] 650 mg PO Q6HR PRN tablet 10/27/17 Ziprasidone [Geodon] 80 mg PO BID #60 capsule 11/02/17 hydrOXYzine pamoate [HydrOXYzine 25 mg PO TID PRN #90 capsule 11/02/17 Pamoate] traZODone [TraZODone] 50 mg PO HS PRN #30 tablet 11/02/17 Allergies Allergy/AdvReac Type Severity Reaction Status Date / Time Penicillins Allergy Hives Verified 10/24/17 17:45 Limitations: ROS unobtainable due to patients medical condition (Patient is currently confabulating and not responding to questioning.) Past Medical History - Past Medical History Source: unable to obtain Medical history: Reports: asthma, other Surgical history: Reports: no surgical history Psychiatric history: Reports: previous psychiatric hospitalization, other - Social History Smoking Status: Current every day smoker Smokeless Tobacco Status: No Alcohol use: Reports: occasionally Drug use: Reports: cocaine, opiates, marijuana, methamphetamine, IV Drug Use Physical Exam - General Limitations: altered mental status General appearance: other - Head Head exam: atraumatic, normocephalic - Eye Eye exam: Present: mydriasis, other. Absent: scleral icterus, conjunctival injection - Neck Neck exam: Present: trachea midline - Chest Chest inspection: Present: symmetric chest wall rise - Respiratory Respiratory exam: Absent: respiratory distress, accessory muscle use, prolonged expiratory phase Course Course Narrative: Patient presentation is concerning for acute drug intoxication. Patient has made statements of suicidal ideation. 1. Patient will be pink-slipped observed in [facility] for further evaluation and management. 2. Patient will receive CBC, BMP, urinalysis, urine toxicology, acetaminophen, salicylate, and EtOH studies. Vital Signs Temperature 99 F 01/12/18 16:27 Pulse Rate 143 01/12/18 16:27 Respiratory Rate 20 01/12/18 16:27 Blood Pressure 137/82 01/12/18 16:27 O2 Sat by Pulse Oximetry 99 01/12/18 16:27 Temperature 99 F 01/12/18 16:27 Pulse Rate 143 01/12/18 16:27 Respiratory Rate 20 01/12/18 16:27 Blood Pressure 137/82 01/12/18 16:27 O2 Sat by Pulse Oximetry 99 01/12/18 16:27 Oxygen Delivery Oxygen Delivery Room Air Altered Mental Status - MDM Narrative Medical decision making narrative: 1. Patient will be signed over to night team for further evaluation and treatment. - Lab Data Lab results reviewed: Yes I reviewed the patient's lab results. Result diagrams: 01/12/18 17:16 01/12/18 17:16 Lab Results 01/12/18 01/12/18 01/12/18 Range/Units 17:16 17:16 17:20 WBC 21.9 H (4.3-11.1) K/mcL RBC 4.90 (4.19-5.50) M/mcL Hgb 14.5 (12.9-16.9) g/dL Hct 41.5 (37.5-50.1) % MCV 84.7 (83.0-100.0) fL MCH 29.6 (28.0-33.3) pg MCHC 34.9 (31.6-35.5) g/dL RDW 16.6 H (11.5-14.5) % Plt Count 300 (140-400) K/mcL MPV 10.1 (9.4-12.4) fL Immature Gran % 0.9 (0-4) % Seg Neutrophils % 79.9 % Lymphocytes % 9.7 % Monocytes % 9.3 % Eosinophils % 0.0 % Basophils % 0.2 % Neutrophils # 17.5 H (1.6-8.9) K/mcL Lymphocytes # 2.1 (0.6-4.6) K/mcL Monocytes # 2.0 H (0.0-1.3) K/mcL Eosinophils # 0.0 (0.0-0.6) K/mcL Basophils # 0.1 (0.0-0.2) K/mcL Sodium 137 (136-145) mEq/L Potassium 5.4 H (3.5-5.1) mEq/L Chloride 101 (98-107) mEq/L Carbon Dioxide 21 L (23-29) mEq/L BUN 28 H (6-20) mg/dL Creatinine 1.84 H (0.70-1.30) mg/dL Est GFR ( Amer) 53 L (> 60) Est GFR (Non-Af Amer) 44 L (> 60) BUN/Creatinine Ratio 15 (6-26) Glucose 114 H (70-105) mg/dL Calculated Osmolality 290 (280-300) Calcium 10.6 H (8.6-10.3) mg/dL Urine Color Dark Yellow (Yellow) Urine Clarity Clear (Clear) Urine pH 5.5 (5.0-8.0) pH Units Ur Specific [place] 1.026 H (1.010-1.025) Urine Protein 100 H (Neg-Trace) mg/dL Urine Glucose (UA) Normal (Normal) mg/dL Urine Ketones Trace H (Negative) mg/dL Urine Blood Small H (Negative) Urine Nitrite Negative (Negative) Urine Bilirubin Small H (Negative) Urine Urobilinogen Normal (Normal) mg/dL Ur Leukocyte Esterase Negative (Negative) Urine Microscopic RBC 0-3 (0-3) per hpf Urine Microscopic WBC 3-5 H (0-3) per hpf Ur Squamous Epith Cells Many H (None-Few) per lpf Urine Bacteria None Seen (None-Few) per hpf Hyaline Casts Few (None-Few) per lpf Salicylates < 2.5 L (15.0-30.0) mg/dL Urine Opiates Screen (Gbcskl=418) ng/mL Acetaminophen < 10 L (10-20) mcg/mL Ur Barbiturates Screen (Xabpzr=695) ng/mL Ur Phencyclidine Scrn (Cutoff=25) ng/mL Ur Amphetamines Screen (Aatwts=2901) ng/mL U Benzodiazepines Scrn (Dbozoq=194) ng/mL Urine Cocaine Screen (Cutoff= 300) ng/mL U Marijuana (THC) Screen (Cutoff = 50) ng/mL Ur Drug Screen Interp Ethyl Alcohol < 10 (Less than 10) mg/dL 01/12/18 Range/Units 17:20 WBC (4.3-11.1) K/mcL RBC (4.19-5.50) M/mcL Hgb (12.9-16.9) g/dL Hct (37.5-50.1) % MCV (83.0-100.0) fL MCH (28.0-33.3) pg MCHC (31.6-35.5) g/dL RDW (11.5-14.5) % Plt Count (140-400) K/mcL MPV (9.4-12.4) fL Immature Gran % (0-4) % Seg Neutrophils % % Lymphocytes % % Monocytes % % Eosinophils % % Basophils % % Neutrophils # (1.6-8.9) K/mcL Lymphocytes # (0.6-4.6) K/mcL Monocytes # (0.0-1.3) K/mcL Eosinophils # (0.0-0.6) K/mcL Basophils # (0.0-0.2) K/mcL Sodium (136-145) mEq/L Potassium (3.5-5.1) mEq/L Chloride (98-107) mEq/L Carbon Dioxide (23-29) mEq/L BUN (6-20) mg/dL Creatinine (0.70-1.30) mg/dL Est GFR ( Amer) (> 60) Est GFR (Non-Af Amer) (> 60) BUN/Creatinine Ratio (6-26) Glucose (70-105) mg/dL Calculated Osmolality (280-300) Calcium (8.6-10.3) mg/dL Urine Color (Yellow) Urine Clarity (Clear) Urine pH (5.0-8.0) pH Units Ur Specific [place] (1.010-1.025) Urine Protein (Neg-Trace) mg/dL Urine Glucose (UA) (Normal) mg/dL Urine Ketones (Negative) mg/dL Urine Blood (Negative) Urine Nitrite (Negative) Urine Bilirubin (Negative) Urine Urobilinogen (Normal) mg/dL Ur Leukocyte Esterase (Negative) Urine Microscopic RBC (0-3) per hpf Urine Microscopic WBC (0-3) per hpf Ur Squamous Epith Cells (None-Few) per lpf Urine Bacteria (None-Few) per hpf Hyaline Casts (None-Few) per lpf Salicylates (15.0-30.0) mg/dL Urine Opiates Screen Positive H (Llutpt=855) ng/mL Acetaminophen (10-20) mcg/mL Ur Barbiturates Screen Negative (Vyijji=113) ng/mL Ur Phencyclidine Scrn Negative (Cutoff=25) ng/mL Ur Amphetamines Screen Positive H (Hxmmcy=6547) ng/mL U Benzodiazepines Scrn Negative (Qjuzxr=021) ng/mL Urine Cocaine Screen Negative (Cutoff= 300) ng/mL U Marijuana (THC) Screen Negative (Cutoff = 50) ng/mL Ur Drug Screen Interp See Below Ethyl Alcohol (Less than 10) mg/dL TPA Checklist - LKW: 3-4.5 hrs Add. Warnings/Precautions Patient/family understanding: The patient/family members have been counseled and understood the risk, benefit , and alternatives of treatment.
[2018-01-12] MEDS ORDERED: *HR* LORazepam 2 MG/ML VIAL IM ONE (17:07)
[2018-01-12 17:29] LABS: Bilirubin,Urine Small (Negative); Blood,Urine Small (Negative); Clarity,Urine Clear (Clear); Color,Urine Dark Yellow (Yellow); Glucose,Urine (UA) Normal (Normal); Ketones,Urine Trace mg/dL (Negative); Leukocyte Esterase,Urine Negative (Negative); Nitrite,Urine Negative (Negative); PH,Urine 5.5 pH Units (5.0-8.0); Protein,Urine 100 mg/dL (Neg-Trace); Specific Gravity,Urine 1.026 (1.010-1.025); Urobilinogen,Urine Normal (Normal)
[2018-01-12 17:31] LABS: Bacteria,Urine None Seen per hpf (None-Few); Hyaline Casts,Urine Few per lpf (None-Few); RBC,Urine 0-3 per hpf (0-3); Squamous Epithelial Cell,Urine Many per lpf (None-Few)
[2018-01-12 17:33] LABS: Basophils # 0.1 K/mcL (0.0-0.2); Basophils % 0.2 %; Hematocrit 41.5 % (37.5-50.1); Hemoglobin 14.5 g/dL (12.9-16.9); Immature Granulocytes % 0.9 % (0-4); Lymphocytes # 2.1 K/mcL (0.6-4.6); Lymphocytes % 9.7 %; Mean Corpuscular HGB Conc 34.9 g/dL (31.6-35.5); Mean Corpuscular Hemoglobin 29.6 pg (28.0-33.3); Mean Corpuscular Volume 84.7 fL (83.0-100.0); Mean Platelet Volume 10.1 fL (9.4-12.4); Monocytes % 9.3 %; Neutrophils # 17.5 K/mcL (1.6-8.9); Platelet Count 300 K/mcL (140-400); Red Cell Distribution Width 16.6 % (11.5-14.5); Segmented Neutrophils % 79.9 %
[2018-01-12 17:51] LABS: Amphetamine Screen,Urine Positive ng/mL (Cutoff=1000); Barbiturate Screen,Urine Negative ng/mL (Cutoff=200); Benzodiazepines Screen,Urine Negative ng/mL (Cutoff=200); Cannabinoid Screen,Urine Negative ng/mL (Cutoff = 50); Cocaine Screen,Urine Negative ng/mL (Cutoff= 300); Opiate Screen,Urine Positive ng/mL (Cutoff=300); Phencyclidine Screen,Urine Negative ng/mL (Cutoff=25)
--- NOTE | 2018-01-12 17:52 | Emergency Department Note ---
Disposition Clinical Impression: Altered mental status, Methamphetamine abuse Disposition: Still a Patient Referrals: NONE,PCP [Primary Care Provider] - Forms: ED Satisfaction Letter General Adult HPI - General Chief complaint: ED Altered Mental Status Stated complaint: AMS Time Seen by Provider: 01/12/18 16:28 Source: EMS Limitations: altered mental status - History of Present Illness Pain Scale: 0 - Related Data Previous Rx's Medication Instructions Recorded Acetaminophen [Tylenol] 650 mg PO Q6HR PRN tablet 10/27/17 Ziprasidone [Geodon] 80 mg PO BID #60 capsule 11/02/17 hydrOXYzine pamoate [HydrOXYzine 25 mg PO TID PRN #90 capsule 11/02/17 Pamoate] traZODone [TraZODone] 50 mg PO HS PRN #30 tablet 11/02/17 Allergies Allergy/AdvReac Type Severity Reaction Status Date / Time Penicillins Allergy Hives Verified 10/24/17 17:45 Past Medical History - Past Medical History Medical history: Reports: asthma, other Surgical history: Reports: no surgical history Psychiatric history: Reports: previous psychiatric hospitalization, other - Social History Smoking Status: Current every day smoker Smokeless Tobacco Status: No Alcohol use: Reports: occasionally Drug use: Reports: cocaine, opiates, marijuana, methamphetamine, IV Drug Use Physical Exam - General Limitations: altered mental status General appearance: other Course Vital Signs Temperature 99 F 01/12/18 16:27 Pulse Rate 143 01/12/18 16:27 Respiratory Rate 20 01/12/18 16:27 Blood Pressure 137/82 01/12/18 16:27 O2 Sat by Pulse Oximetry 99 01/12/18 16:27 Temperature 99 F 01/12/18 16:27 Pulse Rate 143 01/12/18 16:27 Respiratory Rate 20 01/12/18 16:27 Blood Pressure 137/82 01/12/18 16:27 O2 Sat by Pulse Oximetry 99 01/12/18 16:27 Oxygen Delivery Oxygen Delivery Room Air Medical Decision Making - Lab Data Result diagrams: 01/12/18 17:16 01/12/18 17:16 Lab Results 01/12/18 01/12/18 01/12/18 Range/Units 17:16 17:16 17:20 WBC 21.9 H (4.3-11.1) K/mcL RBC 4.90 (4.19-5.50) M/mcL Hgb 14.5 (12.9-16.9) g/dL Hct 41.5 (37.5-50.1) % MCV 84.7 (83.0-100.0) fL MCH 29.6 (28.0-33.3) pg MCHC 34.9 (31.6-35.5) g/dL RDW 16.6 H (11.5-14.5) % Plt Count 300 (140-400) K/mcL MPV 10.1 (9.4-12.4) fL Immature Gran % 0.9 (0-4) % Seg Neutrophils % 79.9 % Lymphocytes % 9.7 % Monocytes % 9.3 % Eosinophils % 0.0 % Basophils % 0.2 % Neutrophils # 17.5 H (1.6-8.9) K/mcL Lymphocytes # 2.1 (0.6-4.6) K/mcL Monocytes # 2.0 H (0.0-1.3) K/mcL Eosinophils # 0.0 (0.0-0.6) K/mcL Basophils # 0.1 (0.0-0.2) K/mcL Sodium 137 (136-145) mEq/L Potassium 5.4 H (3.5-5.1) mEq/L Chloride 101 (98-107) mEq/L Carbon Dioxide 21 L (23-29) mEq/L BUN 28 H (6-20) mg/dL Creatinine 1.84 H (0.70-1.30) mg/dL Est GFR ( Amer) 53 L (> 60) Est GFR (Non-Af Amer) 44 L (> 60) BUN/Creatinine Ratio 15 (6-26) Glucose 114 H (70-105) mg/dL Calculated Osmolality 290 (280-300) Calcium 10.6 H (8.6-10.3) mg/dL Urine Color Dark Yellow (Yellow) Urine Clarity Clear (Clear) Urine pH 5.5 (5.0-8.0) pH Units Ur Specific [place] 1.026 H (1.010-1.025) Urine Protein 100 H (Neg-Trace) mg/dL Urine Glucose (UA) Normal (Normal) mg/dL Urine Ketones Trace H (Negative) mg/dL Urine Blood Small H (Negative) Urine Nitrite Negative (Negative) Urine Bilirubin Small H (Negative) Urine Urobilinogen Normal (Normal) mg/dL Ur Leukocyte Esterase Negative (Negative) Urine Microscopic RBC 0-3 (0-3) per hpf Urine Microscopic WBC 3-5 H (0-3) per hpf Ur Squamous Epith Cells Many H (None-Few) per lpf Urine Bacteria None Seen (None-Few) per hpf Hyaline Casts Few (None-Few) per lpf Salicylates < 2.5 L (15.0-30.0) mg/dL Urine Opiates Screen (Fxwnbp=914) ng/mL Acetaminophen < 10 L (10-20) mcg/mL Ur Barbiturates Screen (Aztcnw=320) ng/mL Ur Phencyclidine Scrn (Cutoff=25) ng/mL Ur Amphetamines Screen (Fwhgsg=8989) ng/mL U Benzodiazepines Scrn (Pitdsd=615) ng/mL Urine Cocaine Screen (Cutoff= 300) ng/mL U Marijuana (THC) Screen (Cutoff = 50) ng/mL Ur Drug Screen Interp Ethyl Alcohol < 10 (Less than 10) mg/dL 01/12/18 Range/Units 17:20 WBC (4.3-11.1) K/mcL RBC (4.19-5.50) M/mcL Hgb (12.9-16.9) g/dL Hct (37.5-50.1) % MCV (83.0-100.0) fL MCH (28.0-33.3) pg MCHC (31.6-35.5) g/dL RDW (11.5-14.5) % Plt Count (140-400) K/mcL MPV (9.4-12.4) fL Immature Gran % (0-4) % Seg Neutrophils % % Lymphocytes % % Monocytes % % Eosinophils % % Basophils % % Neutrophils # (1.6-8.9) K/mcL Lymphocytes # (0.6-4.6) K/mcL Monocytes # (0.0-1.3) K/mcL Eosinophils # (0.0-0.6) K/mcL Basophils # (0.0-0.2) K/mcL Sodium (136-145) mEq/L Potassium (3.5-5.1) mEq/L Chloride (98-107) mEq/L Carbon Dioxide (23-29) mEq/L BUN (6-20) mg/dL Creatinine (0.70-1.30) mg/dL Est GFR ( Amer) (> 60) Est GFR (Non-Af Amer) (> 60) BUN/Creatinine Ratio (6-26) Glucose (70-105) mg/dL Calculated Osmolality (280-300) Calcium (8.6-10.3) mg/dL Urine Color (Yellow) Urine Clarity (Clear) Urine pH (5.0-8.0) pH Units Ur Specific [place] (1.010-1.025) Urine Protein (Neg-Trace) mg/dL Urine Glucose (UA) (Normal) mg/dL Urine Ketones (Negative) mg/dL Urine Blood (Negative) Urine Nitrite (Negative) Urine Bilirubin (Negative) Urine Urobilinogen (Normal) mg/dL Ur Leukocyte Esterase (Negative) Urine Microscopic RBC (0-3) per hpf Urine Microscopic WBC (0-3) per hpf Ur Squamous Epith Cells (None-Few) per lpf Urine Bacteria (None-Few) per hpf Hyaline Casts (None-Few) per lpf Salicylates (15.0-30.0) mg/dL Urine Opiates Screen Positive H (Kcwoiy=668) ng/mL Acetaminophen (10-20) mcg/mL Ur Barbiturates Screen Negative (Ltvcnd=837) ng/mL Ur Phencyclidine Scrn Negative (Cutoff=25) ng/mL Ur Amphetamines Screen Positive H (Csfajo=3885) ng/mL U Benzodiazepines Scrn Negative (Mmubco=693) ng/mL Urine Cocaine Screen Negative (Cutoff= 300) ng/mL U Marijuana (THC) Screen Negative (Cutoff = 50) ng/mL Ur Drug Screen Interp See Below Ethyl Alcohol (Less than 10) mg/dL Attestation Statement - Attestation Attestation: I examined this patient and my medical decision-making was reviewed with the Resident Physician. I agree with the documented findings, disposition and treatment plan as described except to the extent set forth below. Patient presents to the ED with altered mental status. Patient was in his counselors appointment at [facility]. EMS was called because he was confabulating. Threatening suicide. Delusional thinking somebody was after him and his family. History of schizophrenia. Chart review shows that he has been admitted for similar episodes. History of methamphetamine and opiate abuse as well. On examination he is confabulating. Pupils dilated. Anxious. Pacing. Heart tachycardia and regular. Lungs clear. Plan. Medical clearance and evaluation by 1A. Minimal response to 10 mg of Geodon. Patient still anxious and pacing and trying leave. We will order 10 more. Soft restraints as he has an IV placed for hydration for his acute kidney injury. Will be signed out to night stocker.
[2018-01-12 17:59] LABS: Acetaminophen < 10 mcg/mL (10-20); BUN/Creatinine Ratio 15 (6-26); Blood Urea Nitrogen 28 mg/dL (6-20); Calcium 10.6 mg/dL (8.6-10.3); Carbon Dioxide 21 mEq/L (23-29); Chloride 101 mEq/L (98-107); Ethanol < 10 mg/dL (Less than 10); Glucose 114 mg/dL (70-105); Osmolality,Calculated 290 (280-300); Potassium 5.4 mEq/L (3.5-5.1); Salicylate < 2.5 mg/dL (15.0-30.0); Sodium 137 mEq/L (136-145); eGFR For Non-African Americans 44 (> 60)
[2018-01-12] MEDS ORDERED: Ziprasidone injection 20 MG/ML VIAL IM ONE ×2 (18:04→18:25)
[2018-01-12] MEDS ORDERED: 0.9 % Sodium Chloride 1,000 ML IVC ONE ×2 (18:11→19:52)
[2018-01-12 19:09] LABS: Creatine Kinase 1400 Units/L (30-223)
[2018-01-12 21:14] LABS: BUN/Creatinine Ratio 20 (6-26); Blood Urea Nitrogen 27 mg/dL (6-20); Calcium 8.8 mg/dL (8.6-10.3); Carbon Dioxide 22 mEq/L (23-29); Chloride 107 mEq/L (98-107); Glucose 112 mg/dL (70-105); Osmolality,Calculated 292 (280-300); Potassium 4.5 mEq/L (3.5-5.1); Sodium 138 mEq/L (136-145); eGFR For Non-African Americans > 60 (> 60)
--- NOTE | 2018-01-13 00:09 | Emergency Department Note ---
Disposition Clinical Impression: Methamphetamine abuse, Hallucinations, Suicidal ideation Altered mental status Qualifiers: Altered mental status type: unspecified Qualified Code(s): R41.82 - Altered mental status, unspecified Psychosis Qualifiers: Psychosis type: unspecified psychosis type Qualified Code(s): F29 - Unspecified psychosis not due to a substance or known physiological condition Leukocytosis Qualifiers: Leukocytosis type: unspecified Qualified Code(s): D72.829 - Elevated white blood cell count, unspecified Rhabdomyolysis Qualifiers: Rhabdomyolysis type: traumatic Encounter type: initial encounter Qualified Code (s): T79.6XXA - Traumatic ischemia of muscle, initial encounter Disposition: Admitted As Inpatient Condition: Undetermined Referrals: NONE,PCP [Primary Care Provider] - Forms: ED Satisfaction Letter Time of Disposition: 00:43 General Adult HPI - General Chief complaint: ED Altered Mental Status Stated complaint: AMS Time Seen by Provider: 01/12/18 16:28 Source: EMS Limitations: altered mental status Nursing Notes Reviewed: Yes Vital Signs Reviewed: Yes - History of Present Illness HPI Narrative: Patient was signed out to me by daytime physicians Dr. Jean and Dr. Ibarra pending reevaluation and possible psychiatric evaluation. Please see their note for further details. Pain Scale: 0 - Related Data Previous Rx's Medication Instructions Recorded Acetaminophen [Tylenol] 650 mg PO Q6HR PRN tablet 10/27/17 Ziprasidone [Geodon] 80 mg PO BID #60 capsule 11/02/17 hydrOXYzine pamoate [HydrOXYzine 25 mg PO TID PRN #90 capsule 11/02/17 Pamoate] traZODone [TraZODone] 50 mg PO HS PRN #30 tablet 11/02/17 Allergies Allergy/AdvReac Type Severity Reaction Status Date / Time Penicillins Allergy Hives Verified 10/24/17 17:45 Past Medical History - Past Medical History Medical history: Reports: asthma, other Surgical history: Reports: no surgical history Psychiatric history: Reports: previous psychiatric hospitalization, other - Social History Smoking Status: Current every day smoker Smokeless Tobacco Status: No Alcohol use: Reports: occasionally Drug use: Reports: cocaine, opiates, marijuana, methamphetamine, IV Drug Use Physical Exam - General Limitations: altered mental status General appearance: other Course Course Narrative: Patient was signed out to me by daytime physicians Dr. Jean and Dr. Ibarra pending reevaluation and possible psychiatric evaluation. Please see their note for further details. Giancarlo is a 27-year-old male history of bipolar and schizophrenia presenting to emergency department for concern of psychosis. Patient was referred here from the [facility]. There was reports of suicidal ideation. On initial evaluation he was positive for methamphetamine and opiates. His creatinine was significantly elevated similar to a prior episode. He is currently receiving normal saline fluids as well as a CPK. He reports passing out yesterday was found on the ground. He denies any recent methamphetamine use. Patient will await medical clearance prior to psychiatric evaluation for reported suicidal ideation. Currently the patient is sleeping and somnolent after Geodon administration. - Reevaluation(s) Reevaluation #1: CPK significantly elevated 1400. A repeat of his creatinine has improved for 1.8 to 1.3. Patient will be admitted for possible rhabdomyolysis. Physical exam does not reveal any significant skin breakdown. He has some left paraspinal cervical tenderness without midline tenderness on examination without neurologic deficits. He denies any headache. He is alert and oriented person place and time. No additional imaging required at this time. - Consultations Consultation #1: Spoke with on-call hospitalist payal Jiménez to admit for suicidal ideation, ROSA ELENA, rhabdomyolysis, meth use. Patient is now awake alert and oriented. No obvious signs of trauma. Patient will be medically admitted and recommended psychiatric evaluation. His creatinine has improved after to liter normal saline bolus. He is currently tolerating PO intake. He has his pink slip in his medical record as he did endorsed suicidal ideation on initial valuation by daytime physicians. No further orders at this time. Time: 00:43 Vital Signs Temperature 99 F 01/12/18 16:27 Pulse Rate 143 01/12/18 16:27 Respiratory Rate 20 01/12/18 16:27 Blood Pressure 137/82 01/12/18 16:27 O2 Sat by Pulse Oximetry 99 01/12/18 16:27 Temperature 99 F 01/12/18 16:27 Pulse Rate 89 01/12/18 23:44 Respiratory Rate 20 01/12/18 23:44 Blood Pressure 119/71 01/12/18 23:44 O2 Sat by Pulse Oximetry 100 01/12/18 23:44 Oxygen Delivery Oxygen Delivery Room Air Medical Decision Making - MDM Narrative Medical decision making narrative: Patient was discussed with my attending physician who agrees with ED management and final disposition. They independently evaluated the patient. Please refer to their attestation to this encounter for additional information. This note was generated by [employer] voice recognition software and as a result grammatical or spelling errors may occur using this program. - Medical Records Medical records reviewed: Yes I reviewed the patient's medical records. - Lab Data Lab results reviewed: Yes I reviewed the patient's lab results. Result diagrams: 01/12/18 17:16 01/12/18 20:45 Lab Results 01/12/18 01/12/18 01/12/18 Range/Units 17:16 17:16 17:20 WBC 21.9 H (4.3-11.1) K/mcL RBC 4.90 (4.19-5.50) M/mcL Hgb 14.5 (12.9-16.9) g/dL Hct 41.5 (37.5-50.1) % MCV 84.7 (83.0-100.0) fL MCH 29.6 (28.0-33.3) pg MCHC 34.9 (31.6-35.5) g/dL RDW 16.6 H (11.5-14.5) % Plt Count 300 (140-400) K/mcL MPV 10.1 (9.4-12.4) fL Immature Gran % 0.9 (0-4) % Seg Neutrophils % 79.9 % Lymphocytes % 9.7 % Monocytes % 9.3 % Eosinophils % 0.0 % Basophils % 0.2 % Neutrophils # 17.5 H (1.6-8.9) K/mcL Lymphocytes # 2.1 (0.6-4.6) K/mcL Monocytes # 2.0 H (0.0-1.3) K/mcL Eosinophils # 0.0 (0.0-0.6) K/mcL Basophils # 0.1 (0.0-0.2) K/mcL Sodium 137 (136-145) mEq/L Potassium 5.4 H (3.5-5.1) mEq/L Chloride 101 (98-107) mEq/L Carbon Dioxide 21 L (23-29) mEq/L BUN 28 H (6-20) mg/dL Creatinine 1.84 H (0.70-1.30) mg/dL Est GFR ( Amer) 53 L (> 60) Est GFR (Non-Af Amer) 44 L (> 60) BUN/Creatinine Ratio 15 (6-26) Glucose 114 H (70-105) mg/dL Calculated Osmolality 290 (280-300) Calcium 10.6 H (8.6-10.3) mg/dL Creatine Kinase 1400 H (30-223) Units/L Urine Color Dark Yellow (Yellow) Urine Clarity Clear (Clear) Urine pH 5.5 (5.0-8.0) pH Units Ur Specific [place] 1.026 H (1.010-1.025) Urine Protein 100 H (Neg-Trace) mg/dL Urine Glucose (UA) Normal (Normal) mg/dL Urine Ketones Trace H (Negative) mg/dL Urine Blood Small H (Negative) Urine Nitrite Negative (Negative) Urine Bilirubin Small H (Negative) Urine Urobilinogen Normal (Normal) mg/dL Ur Leukocyte Esterase Negative (Negative) Urine Microscopic RBC 0-3 (0-3) per hpf Urine Microscopic WBC 3-5 H (0-3) per hpf Ur Squamous Epith Cells Many H (None-Few) per lpf Urine Bacteria None Seen (None-Few) per hpf Hyaline Casts Few (None-Few) per lpf Salicylates < 2.5 L (15.0-30.0) mg/dL Urine Opiates Screen (Vwqnke=014) ng/mL Acetaminophen < 10 L (10-20) mcg/mL Ur Barbiturates Screen (Pirrup=308) ng/mL Ur Phencyclidine Scrn (Cutoff=25) ng/mL Ur Amphetamines Screen (Kpamcw=1906) ng/mL U Benzodiazepines Scrn (Aefyjs=564) ng/mL Urine Cocaine Screen (Cutoff= 300) ng/mL U Marijuana (THC) Screen (Cutoff = 50) ng/mL Ur Drug Screen Interp Ethyl Alcohol < 10 (Less than 10) mg/dL 01/12/18 01/12/18 Range/Units 17:20 20:45 WBC (4.3-11.1) K/mcL RBC (4.19-5.50) M/mcL Hgb (12.9-16.9) g/dL Hct (37.5-50.1) % MCV (83.0-100.0) fL MCH (28.0-33.3) pg MCHC (31.6-35.5) g/dL RDW (11.5-14.5) % Plt Count (140-400) K/mcL MPV (9.4-12.4) fL Immature Gran % (0-4) % Seg Neutrophils % % Lymphocytes % % Monocytes % % Eosinophils % % Basophils % % Neutrophils # (1.6-8.9) K/mcL Lymphocytes # (0.6-4.6) K/mcL Monocytes # (0.0-1.3) K/mcL Eosinophils # (0.0-0.6) K/mcL Basophils # (0.0-0.2) K/mcL Sodium 138 (136-145) mEq/L Potassium 4.5 (3.5-5.1) mEq/L Chloride 107 (98-107) mEq/L Carbon Dioxide 22 L (23-29) mEq/L BUN 27 H (6-20) mg/dL Creatinine 1.37 H (0.70-1.30) mg/dL Est GFR ( Amer) > 60 (> 60) Est GFR (Non-Af Amer) > 60 (> 60) BUN/Creatinine Ratio 20 (6-26) Glucose 112 H (70-105) mg/dL Calculated Osmolality 292 (280-300) Calcium 8.8 (8.6-10.3) mg/dL Creatine Kinase (30-223) Units/L Urine Color (Yellow) Urine Clarity (Clear) Urine pH (5.0-8.0) pH Units Ur Specific [place] (1.010-1.025) Urine Protein (Neg-Trace) mg/dL Urine Glucose (UA) (Normal) mg/dL Urine Ketones (Negative) mg/dL Urine Blood (Negative) Urine Nitrite (Negative) Urine Bilirubin (Negative) Urine Urobilinogen (Normal) mg/dL Ur Leukocyte Esterase (Negative) Urine Microscopic RBC (0-3) per hpf Urine Microscopic WBC (0-3) per hpf Ur Squamous Epith Cells (None-Few) per lpf Urine Bacteria (None-Few) per hpf Hyaline Casts (None-Few) per lpf Salicylates (15.0-30.0) mg/dL Urine Opiates Screen Positive H (Cceabq=835) ng/mL Acetaminophen (10-20) mcg/mL Ur Barbiturates Screen Negative (Dzuxas=569) ng/mL Ur Phencyclidine Scrn Negative (Cutoff=25) ng/mL Ur Amphetamines Screen Positive H (Rpckuq=0765) ng/mL U Benzodiazepines Scrn Negative (Jjxlkl=503) ng/mL Urine Cocaine Screen Negative (Cutoff= 300) ng/mL U Marijuana (THC) Screen Negative (Cutoff = 50) ng/mL Ur Drug Screen Interp See Below Ethyl Alcohol (Less than 10) mg/dL
[2018-01-13] MEDS ORDERED: 0.9 % Sodium Chloride 1,000 ML IVC SCH ×3 (01:00→15:00)
--- NOTE | 2018-01-13 03:03 | Internal Med History&Physical ---
<Deepak Mohr - Last Filed: 01/13/18 05:20> Date of Encounter: 01/13/18 Time of Encounter: 02:55 Internal Medicine - H&P: HPI Chief complaint: AMS Admitted From: Home History of present illness: Mr. Conrad is a 27 year old male with a PMH of bipolar disorder, schizophrenia with psychotic features, asthma, tobacco dependence, cocaine, opiates, marijuana , methamphetamine, and IV Drug use who presented from [facility] via EMS because he was confabulating and threatening suicide. Patient reports just getting out of longterm and states he may have drank one of his friend's Mountain Dews with meth in it. He reports passing out yesterday and being found on the ground. Today he complains of neck pain, inability to turn his head to the left , and worsening chronic numbness in his hands and feet. He reports walking around all day after his mother told him to go to the [facility] for psychiatric help. Patient has active delusions, paranoia, and thinks somebody is trying to harm him and his mother. He reports taking his Hydroxyzine and Geodon as prescribed. Patient has multiple previous hospitalizations for similar psychosis episodes and suicidal ideation. 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 Past Med Surg Social Fam HX - Past Medical History Medical history: asthma, other Additional medical history: Peripheral neuropathy Psychiatric history: bipolar, panic disorder, schizophrenia, previous psychiatric hospitalization, other - Past Surgical History Surgical History: tonsilectomy - Social History Smoking Status: Current every day smoker Smokeless Tobacco Status: No Alcohol use: occasionally (2 beers weekly) Drug use: cocaine, opiates, marijuana, methamphetamine, IV Drug Use Occupational status: employed (landscaping) Current living situation: Home, With Family Activity Level: Independent ambulation Recent Out of Country Travel Within the Last 8 Weeks: No Exposure or Possible Exposure to Illness During Travel: No - Family History Mother Living Status: Still Living Hx Family Psychosocial Disorders: Yes (Schizophrenia, Bipolar) Father History Unknown: Yes Internal Medicine - H&P: Meds Acetaminophen [Tylenol] 650 mg PO Q6HR PRN tablet 10/27/17 [Rx] Ziprasidone [Geodon] 80 mg PO BID #60 capsule 11/02/17 [Rx] hydrOXYzine pamoate [HydrOXYzine Pamoate] 25 mg PO TID PRN #90 capsule 11/02/17 [Rx] traZODone [TraZODone] 50 mg PO HS PRN #30 tablet 11/02/17 [Rx] 3 Allergy/AdvReac Type Severity Reaction Status Date / Time Penicillins Allergy Hives Verified 01/13/18 04:05 All Systems PM: A 10-system review of systems was performed and is negative for pertinent findings except as documented above in the HPI. - Constitutional Constitutional: chills, no fatigue, no fever(s), no lethargy, no malaise, no weakness, no weight gain, no weight loss - EENT Eyes: no blurry vision, no diplopia Nose, mouth and throat: hoarseness, no epistaxis, no sinus pain, no sore throat - Cardiovascular Cardiovascular ROS IM: dyspnea, palpitations, no chest pain - Respiratory Respiratory: cough, dyspnea, hemoptysis (daily, chronic), chest congestion - Gastrointestinal Gastrointestinal: no abdominal pain, no constipation, no diarrhea, no heartburn , no nausea, no vomiting - Genitourinary Genitourinary ROS male: no dysuria, no hematuria, no urinary frequency, no urinary urgency - Musculoskeletal Musculoskeletal ROS IM: arthralgias, joint swelling, limited range of motion, neck pain, numbness, tingling - Integumentary Integumentary IM: erythema, new lesions, no skin ulcer - Neurological Neurological ROS: abnormal gait, numbness, tingling, no frequent falls, no weakness - Psychiatric Psychiatric: abnormal sleep pattern, anxiety, behavioral changes, hallucinations , panic attacks, paranoia, suicidal ideation, no depression - Endocrine Endocrine IM: no fatigue, no polydipsia, no polyphagia, no polyuria - Hematologic/Lymphatic Hematologic/Lymphatic: no easy bleeding, no easy bruising - Allergic/Immunologic Allergic/Immunologic: no uticaria - Constitutional Vitals: Temp Pulse Resp BP Pulse Ox 99 F 89 20 119/71 100 01/12/18 16:27 01/12/18 23:44 01/12/18 23:44 01/12/18 23:44 01/12/18 23:44 General appearance: Present: cooperative, A&O X 3, pleasant, no acute distress, answers questions appropriately - Head Head exam: Present: atraumatic, normocephalic - Eye Eye exam: Present: PERRL, conjuntiva pink, sclera anicteric Pupils: Present: mydriatic, PERRL - ENT ENT exam: Present: mucous membranes dry, normal oropharynx - Neck Neck exam general surgery: Present: supple, trachea midline. Absent: lymphadenopathy - Respiratory Respiratory exam: Present: CTAB. Absent: accessory muscle use, rales, rhonchi, wheezes - Cardiovascular Cardiovascular exam: Present: RRR, +S1, +S2, tachycardia. Absent: diastolic murmur, gallop, rubs, systolic murmur - GI/Abdominal GI/Abdominal exam: Present: normal bowel sounds, soft, no peritoneal signs. Absent: distended, tenderness - Extremities Exam Extremities exam: Present: normal capillary refill, normal inspection, warm, radial pulses palpable and symmetrical. Absent: calf tenderness, cyanotic, pedal edema - Back Exam Back exam: Present: normal inspection. Absent: paraspinal tenderness, tenderness - Neurological Exam Neurological exam: Present: altered, no focal deficits, strengths equal and symetr throughout. Absent: pronater drift, facial droop, speech deficit - Expanded Psychiatric Exam Focused psych exam: Present: delusional, flight of ideas, paranoid, perseverating, restlessness. Absent: pressured speech, psychomotor agitation - Skin Skin exam: Present: dry, erythema (dactylitis bilateral feet, cold extremities, no visible splinter hemorrhages, olser's nodes or Janeway lesions), intact ( multiple tattoos, small subcutaneous abscess on his anterior neck that does not look inflamed) Internal Med - H&P Results - Labs CBC & Chem 7: 01/12/18 17:16 01/13/18 04:12 - Pulse Oximetry Interpretation Digit-Finger O2 Sat by Pulse Oximetry: 99 (On room air) - Assessment and plan (1) Rhabdomyolysis Current Visit: Yes Status: Acute Assessment and plan: Patient reports passing out yesterday and being found on the ground. He reports walking around all day today. He complains of neck pain, inability to turn his head to the left, and worsening chronic numbness in his hands and feet. X-ray c-spine pending CK level 1400 Patient received 2L NS bolus in the ED Continue generous hydration Continue close monitoring Qualifiers: Rhabdomyolysis type: non-traumatic Qualified Code(s): M62.82 - Rhabdomyolysis (2) ROSA ELENA (acute kidney injury) Current Visit: Yes Status: Acute Assessment and plan: Patient with acute rhabdomyelitis He received 2L NS bolus in the ED Continue generous IV hydration Avoid nephrotoxins Continue close monitoring (3) SIRS (systemic inflammatory response syndrome) Current Visit: Yes Status: Acute Assessment and plan: Patient met SIRS criteria with leukocytosis 21.9 with left shift, tachycardia HR 143, and h/o IVDU as likely source of infection Patient has a small subcutaneous abscess on his anterior neck that does not look inflamed Blood cultures pending Consider echo if blood cultures positive and starting antibiotics if leukocytosis increases ESR, CRP levels pending Patient has dactylitis on exam, no visible splinter hemorrhages, olser's nodes or Janeway lesions, no cardiac murmurs (4) Suicidal ideation Current Visit: Yes Status: Acute Assessment and plan: Patient presented from [facility] via EMS after threatening suicide. Patient has multiple previous hospitalizations for suicidal ideation. Continue suicide precautions Sitter at bedside Psychiatry consulted (5) Acute psychosis Current Visit: Yes Status: Acute Assessment and plan: Patient has multiple previous hospitalizations for similar psychosis episodes. Patient's mother told him to go to the [facility] for psychiatric help. Patient has active delusions, paranoia, and thinks somebody is trying to harm him and his mother. He reports taking his Hydroxyzine and Geodon as prescribed. Continue Geodon Psychiatry consulted (6) Schizophrenia Current Visit: Yes Status: Chronic Assessment and plan: He reports taking his Hydroxyzine and Geodon as prescribed. Psychiatry consulted Qualifiers: Schizophrenia type: paranoid schizophrenia Qualified Code(s): F20.0 - Paranoid schizophrenia (7) Polysubstance (including opioids) dependence w/o physiol dependence Current Visit: Yes Status: Chronic Assessment and plan: UDS positive for Opiates and Amphetamines (8) Tobacco dependence Current Visit: No Status: Chronic Assessment and plan: Tobacco cessation discussed Nicotine patch ordered (9) Asthma Current Visit: No Status: Chronic Assessment and plan: Patient reports weekly symptoms. He has run out of refills on his inhaler and requests a refill upon discharge. Continue Duonebs prn Qualifiers: Asthma severity: mild Asthma persistence: persistent Asthma complication type: uncomplicated Qualified Code(s): J45.30 - Mild persistent asthma, uncomplicated (10) DVT prophylaxis Current Visit: Yes Status: Acute Assessment and plan: EPCDs (11) Peripheral neuropathy Current Visit: No Status: Chronic Assessment and plan: Resume home Gabapentin Qualifiers: Peripheral neuropathy type: polyneuropathy, unspecified Qualified Code(s): G62.9 - Polyneuropathy, unspecified - Time Spent With Patient Total time spent is greater than 50% in coordination of care (as documented) at patient's floor/unit and/or counseling patient: <Gregory Connelly - Last Filed: 01/13/18 05:49> Date of Encounter: 01/13/18 Internal Medicine - H&P: HPI History of present illness: Mr. Conrad is a 27 year old male All Systems PM: A 10-system review of systems was performed and is negative for pertinent findings except as documented above in the HPI. - Constitutional Vitals: Temp Pulse Resp BP Pulse Ox 97.9 F 90 18 102/65 97 01/13/18 03:01 01/13/18 03:01 01/13/18 03:01 01/13/18 03:01 01/13/18 03:01 Internal Med - H&P Results - Labs CBC & Chem 7: 01/13/18 04:12 01/13/18 04:12 Labs: Short CBC 01/13/18 Range/Units 04:12 WBC 9.5 D (4.3-11.1) K/mcL Hgb 12.1 L D (12.9-16.9) g/dL Hct 35.5 L (37.5-50.1) % Plt Count 234 (140-400) K/mcL Neutrophils # 5.6 (1.6-8.9) K/mcL BMP 01/13/18 04:12 Sodium 138 Potassium 4.5 Chloride 107 Carbon Dioxide 24 BUN 24 H Creatinine 1.13 Glucose 70 Calcium 9.0 Liver Function 01/13/18 Range/Units 04:12 Total Bilirubin 1.2 H (0.3-1.0) mg/dL AST 39 (13-39) Units/L ALT 17 (7-52) Units/L Alkaline Phosphatase 46 (34-104) Units/L Albumin 3.8 (3.5-5.7) g/dL - Attending Attestation I have seen the patient and performed my own history and physical examination. I have discussed the case with the admitting resident, and I agree with his assessment and plan of care as documented in his H&P. Briefly, patient admitted for suicidal ideation, rhabdomyolysis, and ROSA ELENA. We will admit as inpatient and hydrate with IVF. Recheck CK and BMP in AM. Will consult psychiatry and continue home geodon. Continue 1-on-1 sitter. - Assessment and plan (1) Polysubstance (including opioids) dependence w/o physiol dependence Current Visit: Yes Status: Chronic (2) Acute psychosis Current Visit: Yes Status: Acute (3) Suicidal ideation Current Visit: Yes Status: Acute (4) DVT prophylaxis Current Visit: Yes Status: Acute (5) Rhabdomyolysis Current Visit: Yes Status: Acute Qualifiers: Rhabdomyolysis type: non-traumatic Qualified Code(s): M62.82 - Rhabdomyolysis (6) Schizophrenia Current Visit: Yes Status: Chronic Qualifiers: Schizophrenia type: paranoid schizophrenia Qualified Code(s): F20.0 - Paranoid schizophrenia (7) ROSA ELENA (acute kidney injury) Current Visit: Yes Status: Acute (8) Asthma Current Visit: No Status: Chronic Qualifiers: Asthma severity: mild Asthma persistence: persistent Asthma complication type: uncomplicated Qualified Code(s): J45.30 - Mild persistent asthma, uncomplicated (9) Tobacco dependence Current Visit: No Status: Chronic (10) SIRS (systemic inflammatory response syndrome) Current Visit: Yes Status: Acute (11) Peripheral neuropathy Current Visit: No Status: Chronic Qualifiers: Peripheral neuropathy type: polyneuropathy, unspecified Qualified Code(s): G62.9 - Polyneuropathy, unspecified - Time Spent With Patient Total time spent is greater than 50% in coordination of care (as documented) at patient's floor/unit and/or counseling patient:
[2018-01-13] MEDS ORDERED: Acetaminophen 325 MG TABLET PO PRN (03:12)
[2018-01-13] MEDS ORDERED: Ondansetron 4 MG/2 ML VIAL IVP PRN (03:12)
[2018-01-13] MEDS ORDERED: Ipratropium/Albuterol Neb 3 ML IH PRN (03:56)
[2018-01-13] MEDS ORDERED: Nicotine 7 MG PATCH.TD24 TD SCH (04:19)
[2018-01-13 04:49] LABS: Alanine Aminotransferase 17 Units/L (7-52); Albumin 3.8 g/dL (3.5-5.7); Albumin/Globulin Ratio 1.2 (1.1-2.2); Alkaline Phosphatase 46 Units/L (34-104); Aspartate Amino Transferase 39 Units/L (13-39); BUN/Creatinine Ratio 21 (6-26); Bilirubin,Total 1.2 mg/dL (0.3-1.0); Blood Urea Nitrogen 24 mg/dL (6-20); Carbon Dioxide 24 mEq/L (23-29); Chloride 107 mEq/L (98-107); Globulin 3.1 g/dL (2.4-3.5); Glucose 70 mg/dL (70-105); Osmolality,Calculated 288 (280-300); Potassium 4.5 mEq/L (3.5-5.1); Sodium 138 mEq/L (136-145); Total Protein 6.9 g/dL (6.4-8.9); eGFR For Non-African Americans > 60 (> 60)
[2018-01-13 05:11] LABS: Basophils % 0.3 %; Eosinophils # 0.1 K/mcL (0.0-0.6); Eosinophils % 0.7 %; Hematocrit 35.5 % (37.5-50.1); Immature Granulocytes % 0.3 % (0-4); Lymphocytes # 2.4 K/mcL (0.6-4.6); Lymphocytes % 25.5 %; Mean Corpuscular HGB Conc 34.1 g/dL (31.6-35.5); Mean Corpuscular Hemoglobin 29.7 pg (28.0-33.3); Mean Corpuscular Volume 87.2 fL (83.0-100.0); Mean Platelet Volume 10.4 fL (9.4-12.4); Monocytes # 1.4 K/mcL (0.0-1.3); Monocytes % 14.8 %; Platelet Count 234 K/mcL (140-400); Red Blood Count 4.07 M/mcL (4.19-5.50); Red Cell Distribution Width 16.8 % (11.5-14.5); Segmented Neutrophils % 58.4 %
[2018-01-13 05:22] LABS: Hemoglobin 12.1 g/dL (12.9-16.9); Neutrophils # 5.6 K/mcL (1.6-8.9)
[2018-01-13] MEDS ORDERED: traMADol 50 MG TABLET PO PRN (08:43)
--- NOTE | 2018-01-13 08:43 | Internal Med Progress Note ---
Date of Encounter: 01/13/18 - Time Spent With Patient Total time spent is greater than 50% in coordination of care (as documented) at patient's floor/unit and/or counseling patient: - Constitutional Vitals: Temp Pulse Resp BP Pulse Ox 97.9 F 67 18 93/54 99 01/13/18 08:00 01/13/18 08:00 01/13/18 08:00 01/13/18 08:00 01/13/18 08:00 General appearance: Present: cooperative, A&O X 3, pleasant, no acute distress, answers questions appropriately Internal Medicine: Result - Labs CBC & Chem 7: 01/13/18 04:12 01/13/18 04:12 Consult Discharge Plan - Plan Referrals: NONE,PCP [Primary Care Provider] -
[2018-01-13] MEDS ORDERED: Gabapentin 300 MG CAPSULE PO SCH (09:00)
[2018-01-13] MEDS ORDERED: Ziprasidone 80 MG CAPSULE PO SCH (09:00)
--- NOTE | 2018-01-13 10:46 | Internal Med Progress Note ---
Date of Encounter: 01/13/18 Time of Encounter: 08:30 - Assessment and plan (1) Rhabdomyolysis Current Visit: Yes Status: Resolved Assessment and plan: Secondary to usage of methamphetamines, other possible causes include cocaine use, heroine use, crush injury BUN 24, Cr 1.13, Na 138, K 4.5, ESR 15, CRP 112, CrK 1332 (down from 1400) Fluids at 125 mL/hr, monitor changes in electrolytes with BMP. Qualifiers: Rhabdomyolysis type: non-traumatic Qualified Code(s): M62.82 - Rhabdomyolysis (2) ROSA ELENA (acute kidney injury) Current Visit: Yes Status: Resolved Assessment and plan: Secondary to acute rhabdomyolitis BUN 24, Cr 1.13, CRK 1332 Continue IVF at 125 mL/hr and avoid nephrotoxic agents, monitor BUN/Cr for renal function. (3) Suicidal ideation Current Visit: Yes Status: Resolved Assessment and plan: Patient initially presented to [facility] for suicidal ideation and has been hospitalized for it previously. Patient now in room with a sitter, anxious but in no acute distress. Psych consult was done and patient no longer has suicidal ideation so has been cleared by psychiatry. (4) Psychosis Current Visit: Yes Status: Resolved Assessment and plan: Psychosis likely secondary to usage of illicit substances Patient had been walking around through the night and came in with signs of active paranoia and delusions. Patient is still anxious and paranoid today but does not show signs of pressured speech, flight of ideas or delusions Continue to monitor for symptoms Qualifiers: Qualified Code(s): F20.9 - Schizophrenia, unspecified (5) Schizophrenia Current Visit: Yes Status: Chronic Assessment and plan: Chronic, treated with home Geodon and hydroxizine Psychiatry consulted, cleared by psych. Continue home medication in hospital, decrease Geodon dosing in hospital to 40mg BID Qualifiers: Schizophrenia type: paranoid schizophrenia Qualified Code(s): F20.0 - Paranoid schizophrenia - Time Spent With Patient Total time spent is greater than 50% in coordination of care (as documented) at patient's floor/unit and/or counseling patient: - Subjective Interval history: Giancarlo Conrad is a 27 y/o M with a pmh of Bipolar disorder, schizophrenia with psychotic features, asthma, tobacco usage, cocain use, opiate use, marajuana use , meth use and IV drug use presenting to [facility] due to confabulation and suicidal ideation. Patient states he stayed up all night yesterday walking around and confused. Continues to have concerns that someone is trying to harm his mother and family. Today patient complains of overall diffuse pain that he was unable to localize to a specific bodily region. He describes it as achy, in his muscles. Patient states he also feels weak in bilateral lower extremities. ROS Constitutional: positive for fatigue, weakness, chills. Denies fevers, weight changes. Skin: positive for skin ulceration of right thumb. denies rashes, lesions. HEENT: denies vision or hearing changes CV: denies palpitations, SOB, RESP: denies cough, wheeze, difficulty breathing GI: denies n/v/c/d, melena, hematchezia : positive for difficulty urinating MSK: positive for weakness in bl lower extremities NEURO: positive for loss of sensation in regions of feet. PSYCH: positive for paranoia and anxiety - Constitutional Vitals: Temp Pulse Resp BP Pulse Ox 97.9 F 67 18 93/54 99 01/13/18 08:00 01/13/18 08:00 01/13/18 08:00 01/13/18 08:00 01/13/18 08:00 General appearance: Present: cooperative, A&O X 3, pleasant, no acute distress - Head Head exam: Present: atraumatic - Eye Eye exam: Present: EOMI, PERRL Pupils: Present: mydriatic - ENT ENT exam: Present: mucous membranes moist - Neck Additional comments: small anterior soft tissue neck deformitiy, measuring 2-3 cm, circular - Expanded Neck Exam Neck exam: Present: midline deformity - Respiratory Respiratory exam: Present: CTAB - Cardiovascular Cardiovascular exam: Present: RRR. Absent: diastolic murmur, systolic murmur - Expanded Cardiovascular Exam Peripheral pulses: 3+/4+: Radial (L), Radial (R), Dorsalis Pedis (L) PM, Dorsalis Pedis (R) PM - GI/Abdominal GI/Abdominal exam: Present: normal bowel sounds. Absent: tenderness - Neurological Exam Neurological exam: Present: oriented X3 - Expanded Neurological Exam Neuro motor strength exam: LUE: 5, RUE: 5 - Psychiatric Psychiatric exam: Present: anxious - Expanded Psychiatric Exam Focused psych exam: Absent: flight of ideas, perseverating, pressured speech - Skin Skin exam: Absent: rash Additional comments: no splinter hemorrhages present. no clubbing of nails. Internal Medicine: Result - Labs CBC & Chem 7: 01/13/18 04:12 01/13/18 04:12 Consult Discharge Plan - Plan Additional Instructions: - Patient denied SI or HI patient denied any safety concerns patient reports [facility]D has mental health outpatient follow-up at [facility] he reports he has an appointment at 1 PM today. - Patient is not interested in substance treatment resources at this time he reports ERD has them. - Discontinue one-to-one sitter and per psychiatry patient does not need further hospitalization can discontinue or drop pink slip Referrals: NONE,PCP [Primary Care Provider] - 01/26/18 9:00 am (please follow up with Jasen Ragsdale )
--- NOTE | 2018-01-13 11:01 | Event Note ---
Date of Encounter: 01/13/18 Time of Encounter: 10:59 Patient was seen and examined. He was admitted overnight by my colleague for suicidal ideation, acute kidney injury, rhabdomyolysis. His medical issues are improving however the patient was to leave and he is pink slipped. He can only leave after psych clearance. I am okay with the degree to which his kidney function and rhabdomyolysis has improved and he can continue to stay hydrated orally as much as he can once he leaves.
--- NOTE | 2018-01-13 11:03 | Consult Note ---
Date of Encounter: 01/13/18 Time of Encounter: 10:59 History of Present Illness Requesting Physician: Gregory Connelly Reason for consult: AMS History of present illness: Mr. Conrad is a 27 year old male with a past psychiatric history of substance use disorder and a mood disorder admitted to the medical floor for altered mental status. Patient has follow-up care per patient at [facility] he reports having an appointment at 1 PM today patient reports that he did not use any drugs he reports [facility] he reports that even in [facility] he was on pain medication that why his opiate screen is positive patient denies using any amphetamines or methamphetamines and reports that he was taking Valium point was very resistant on answering where he got this Valium and continue to report "I was prescribed at". Patient was very irritable on evaluation stating that he did not need to be here and reports that he never said he was suicidal patient reports that he currently is not suicidal he reports he needs to get discharged from the hospital so he can go to his job. Patient reports that he already has outpatient resources for substance use and reports he does not need any right now. Discussed with patient the importance of following up with NA and AA and patient was not interested with the recommendations being given. Patient continued to deny any safety concerns and suicidal ideations patient reports he will follow-up for his medications with his outpatient provider. CC: Gregory Connelly Past Med Surg Social Fam HX - Past Medical History Medical history: asthma, other - Past Psychiatric History Psychiatric history: Reports: bipolar Past psychiatric history details: substance use disorder Pt reports [facility] and just got [facility] 2 days ago Family psychiatric history: No Family History of Suicide: None - Past Surgical History Surgical History: tonsilectomy - Social History Smoking Status: Current every day smoker Smokeless Tobacco Status: No Alcohol use: occasionally (2 beers weekly) Drug use: cocaine, opiates, marijuana, methamphetamine, IV Drug Use - Family History Mother History Unknown: Yes Living Status: Still Living Hx Family Psychosocial Disorders: Yes (Schizophrenia, Bipolar) Father History Unknown: Yes Medications & Allergies Acetaminophen [Tylenol] 650 mg PO Q6HR PRN tablet 10/27/17 [Rx] Ziprasidone [Geodon] 80 mg PO BID #60 capsule 11/02/17 [Rx] hydrOXYzine pamoate [HydrOXYzine Pamoate] 25 mg PO TID PRN #90 capsule 11/02/17 [Rx] traZODone [TraZODone] 50 mg PO HS PRN #30 tablet 11/02/17 [Rx] 3 Allergy/AdvReac Type Severity Reaction Status Date / Time Penicillins Allergy Hives Verified 01/13/18 04:05 Psychiatry Exam - Constitutional Vitals: Temp Pulse Resp BP Pulse Ox 97.9 F 67 18 93/54 99 01/13/18 08:00 01/13/18 08:00 01/13/18 08:00 01/13/18 08:00 01/13/18 08:00 General appearance: well-groomed - Musculoskeletal Gait: normal Strength & Tone: normal for patient ( ) - Psychiatric Patient Orientation: Yes Person, Yes Time, Yes Place ( ) Level of alertness: Alert Behavior: cooperative, agitated Psychomotor activity: Normal Eye Contact: Maintains Eye Contact Mood Description: Irritable Affect description: congruent with mood Speech Volume: Normal Speech pattern: normal rate, normal rhythm, normal tone Language & Vocabulary: consistent with education Thought Process: Intact, Logical, Linear, Goal Oriented Thought Content: Yes Intact Attention Span Ability: Capable of Focused Attention, Capable of Sustained Attention Memory Description: Grossly Intact, Immediate Intact Patient Reliability: Reliable Historian Fund of knowledge: Yes average Intelligence Estimate: Average Judgment: Fair Insight: Partial Results - Labs Labs: Laboratory Last Values WBC 9.5 K/mcL (4.3-11.1) D 01/13/18 04:12 RBC 4.07 M/mcL (4.19-5.50) L 01/13/18 04:12 Hgb 12.1 g/dL (12.9-16.9) L D 01/13/18 04:12 Hct 35.5 % (37.5-50.1) L 01/13/18 04:12 MCV 87.2 fL (83.0-100.0) 01/13/18 04:12 MCH 29.7 pg (28.0-33.3) 01/13/18 04:12 MCHC 34.1 g/dL (31.6-35.5) 01/13/18 04:12 RDW 16.8 % (11.5-14.5) H 01/13/18 04:12 Plt Count 234 K/mcL (140-400) 01/13/18 04:12 MPV 10.4 fL (9.4-12.4) 01/13/18 04:12 Immature Gran % 0.3 % (0-4) 01/13/18 04:12 Seg Neutrophils % 58.4 % 01/13/18 04:12 Lymphocytes % 25.5 % 01/13/18 04:12 Monocytes % 14.8 % 01/13/18 04:12 Eosinophils % 0.7 % 01/13/18 04:12 Basophils % 0.3 % 01/13/18 04:12 Neutrophils # 5.6 K/mcL (1.6-8.9) 01/13/18 04:12 Lymphocytes # 2.4 K/mcL (0.6-4.6) 01/13/18 04:12 Monocytes # 1.4 K/mcL (0.0-1.3) H 01/13/18 04:12 Eosinophils # 0.1 K/mcL (0.0-0.6) 01/13/18 04:12 Basophils # 0.0 K/mcL (0.0-0.2) 01/13/18 04:12 ESR 15 mm/hr (0-10) H 01/13/18 04:12 Sodium 138 mEq/L (136-145) 01/13/18 04:12 Potassium 4.5 mEq/L (3.5-5.1) 01/13/18 04:12 Chloride 107 mEq/L (98-107) 01/13/18 04:12 Carbon Dioxide 24 mEq/L (23-29) 01/13/18 04:12 BUN 24 mg/dL (6-20) H 01/13/18 04:12 Creatinine 1.13 mg/dL (0.70-1.30) 01/13/18 04:12 Est GFR ( Amer) > 60 (> 60) 01/13/18 04:12 Est GFR (Non-Af Amer) > 60 (> 60) 01/13/18 04:12 BUN/Creatinine Ratio 21 (6-26) 01/13/18 04:12 Glucose 70 mg/dL (70-105) 01/13/18 04:12 Calculated Osmolality 288 (280-300) 01/13/18 04:12 Calcium 9.0 mg/dL (8.6-10.3) 01/13/18 04:12 Magnesium 2.1 mg/dL (1.6-2.6) 01/13/18 04:12 Total Bilirubin 1.2 mg/dL (0.3-1.0) H 01/13/18 04:12 AST 39 Units/L (13-39) 01/13/18 04:12 ALT 17 Units/L (7-52) 01/13/18 04:12 Alkaline Phosphatase 46 Units/L (34-104) 01/13/18 04:12 Creatine Kinase 1332 Units/L (30-223) H 01/13/18 04:12 C-Reactive Protein 112 mg/L (Less than 10) H 01/13/18 04:12 Serum Total Protein 6.9 g/dL (6.4-8.9) 01/13/18 04:12 Albumin 3.8 g/dL (3.5-5.7) 01/13/18 04:12 Globulin 3.1 g/dL (2.4-3.5) 01/13/18 04:12 Albumin/Globulin Ratio 1.2 (1.1-2.2) 01/13/18 04:12 Urine Color Dark Yellow (Yellow) 01/12/18 17:20 Urine Clarity Clear (Clear) 01/12/18 17:20 Urine pH 5.5 pH Units (5.0-8.0) 01/12/18 17:20 Ur Specific [place] 1.026 (1.010-1.025) H 01/12/18 17:20 Urine Protein 100 mg/dL (Neg-Trace) H 01/12/18 17:20 Urine Glucose (UA) Normal mg/dL (Normal) 01/12/18 17:20 Urine Ketones Trace mg/dL (Negative) H 01/12/18 17:20 Urine Blood Small (Negative) H 01/12/18 17:20 Urine Nitrite Negative (Negative) 01/12/18 17:20 Urine Bilirubin Small (Negative) H 01/12/18 17:20 Urine Urobilinogen Normal mg/dL (Normal) 01/12/18 17:20 Ur Leukocyte Esterase Negative (Negative) 01/12/18 17:20 Urine Microscopic RBC 0-3 per hpf (0-3) 01/12/18 17:20 Urine Microscopic WBC 3-5 per hpf (0-3) H 01/12/18 17:20 Ur Squamous Epith Cells Many per lpf (None-Few) H 01/12/18 17:20 Urine Bacteria None Seen per hpf (None-Few) 01/12/18 17:20 Hyaline Casts Few per lpf (None-Few) 01/12/18 17:20 Salicylates < 2.5 mg/dL (15.0-30.0) L 01/12/18 17:16 Urine Opiates Screen Positive ng/mL (Mjwxgd=345) H 01/12/18 17:20 Acetaminophen < 10 mcg/mL (10-20) L 01/12/18 17:16 Ur Barbiturates Screen Negative ng/mL (Xmygks=297) 01/12/18 17:20 Ur Phencyclidine Scrn Negative ng/mL (Cutoff=25) 01/12/18 17:20 Ur Amphetamines Screen Positive ng/mL (Vatjhe=0153) H 01/12/18 17:20 U Benzodiazepines Scrn Negative ng/mL (Ucbnwl=073) 01/12/18 17:20 Urine Cocaine Screen Negative ng/mL (Cutoff= 300) 01/12/18 17:20 U Marijuana (THC) Screen Negative ng/mL (Cutoff = 50) 01/12/18 17:20 Ur Drug Screen Interp See Below 01/12/18 17:20 Ethyl Alcohol < 10 mg/dL (Less than 10) 01/12/18 17:16 Consult Discharge Plan - Plan Additional Instructions: - Patient denied SI or HI patient denied any safety concerns patient reports ERD has mental health outpatient follow-up at [facility] he reports he has an appointment at 1 PM today. - Patient is not interested in substance treatment resources at this time he reports ERD has them. - Discontinue one-to-one sitter and per psychiatry patient does not need further hospitalization can discontinue or drop pink slip Referrals: NONE,PCP [Primary Care Provider] -
--- NOTE | 2018-01-13 12:50 | Discharge Summary ---
<Dustin Barnes - Last Filed: 01/13/18 14:19> - NOTES TO OUTPATIENT PROVIDER Notes to Outpatient Provider: Admitted for rhabdomyolysis. Treated with IVF. Patient Rosa Elena resolved. Told to drink plenty of fluids at discharge. Orders not resulted at time of discharge: Pending orders 01/13/18 04:12 Culture,Blood [BC] Routine 01/13/18 12:19 EKG [ECG 12 lead ECG] [ECG] Stat Date of Encounter: 01/13/18 Time of Encounter: 12:48 - Discharge Diagnosis (1) Rhabdomyolysis Priority: Primary Status: Resolved Qualifiers: Rhabdomyolysis type: non-traumatic Qualified Code(s): M62.82 - Rhabdomyolysis (2) Polysubstance (including opioids) dependence w/o physiol dependence Priority: Secondary Status: Chronic (3) DVT prophylaxis Priority: Secondary Status: Acute (4) Acute psychosis Priority: Secondary Status: Resolved (5) Suicidal ideation Priority: Secondary Status: Resolved (6) Schizophrenia Priority: Secondary Status: Chronic Qualifiers: Schizophrenia type: paranoid schizophrenia Qualified Code(s): F20.0 - Paranoid schizophrenia (7) ROSA ELENA (acute kidney injury) Priority: Secondary Status: Resolved (8) Asthma Priority: Secondary Status: Chronic Qualifiers: Asthma severity: mild Asthma persistence: persistent Asthma complication type: uncomplicated Qualified Code(s): J45.30 - Mild persistent asthma, uncomplicated (9) Tobacco dependence Priority: Secondary Status: Chronic (10) SIRS (systemic inflammatory response syndrome) Priority: Secondary Status: Acute (11) Peripheral neuropathy Priority: Secondary Status: Chronic Qualifiers: Peripheral neuropathy type: polyneuropathy, unspecified Qualified Code(s): G62.9 - Polyneuropathy, unspecified Hospital course: Mr. Conrad is a 27 year old male presented with SI and confabulation. He was found to be in rhabdomyolysis, ROSA ELENA likley 2nd to methamphetamine use. Also he has opiates on UDS. He was placed on IVF. Rosa Elena resolved and his CK trended down. Patient was pink slipped in ED. He was cleared by Psychiatry today. Patient is tolerating his diet and able to ambulate independently. He is instructed to drink plenty of fluids at home. Follow up with PCP with in 7 days. Discharge discussed with: patient Time spent discussing smoking cessation with patient: more than 10 minutes - Time Spent with Patient Total time spent providing and/or coordinating discharge services: Greater than 30 minutes - Discharge Medications Home Medications: Ziprasidone [Geodon] 80 mg PO BID #60 capsule 11/02/17 [Rx] hydrOXYzine pamoate [HydrOXYzine Pamoate] 25 mg PO TID PRN #90 capsule 11/02/17 [Rx] Allergies/Adverse Reactions: 3 Allergy/AdvReac Type Severity Reaction Status Date / Time Penicillins Allergy Hives Verified 01/13/18 11:34 Date of admission: 01/13/18 01:40 Primary care physician: PCP NONE Consults: 01/13/18 05:30 Consult to Thread Spinner [CONS] Routine Reason for SW Consult: mental health 01/13/18 09:47 Consult to Psychiatry [CONS] Routine Consulting Provider: Psychiatry Rosi Reason consult: [place] slip on chart [place] initiated date and time: 01/13/2018 5PM Discharging clinician: Dustin Barnes Anticipated date of discharge: 01/13/18 - Constitutional Vitals: Temp Pulse Resp BP Pulse Ox 98.5 F 61 18 103/58 100 01/13/18 12:12 01/13/18 12:12 01/13/18 12:12 01/13/18 12:12 01/13/18 12:12 General appearance: Present: cooperative, A&O X 3, pleasant, no acute distress - Head Head exam: Present: atraumatic, normocephalic - Eye Eye exam: Present: PERRL, conjuntiva pink, sclera anicteric - Neck Neck exam general surgery: Present: supple, trachea midline. Absent: lymphadenopathy - Respiratory Respiratory exam: Present: CTAB. Absent: accessory muscle use, rales, rhonchi, wheezes - Cardiovascular Cardiovascular exam: Present: RRR, +S1, +S2. Absent: diastolic murmur, gallop, rubs, systolic murmur - GI/Abdominal GI/Abdominal exam: Present: normal bowel sounds, soft, no peritoneal signs. Absent: distended, tenderness - Extremities Exam Extremities exam: Present: warm, radial pulses palpable and symmetrical. Absent : calf tenderness, cyanotic, pedal edema - Neurological Exam Neurological exam: Present: CN II-XII intact, oriented X3, no focal deficits. Absent: pronater drift, facial droop, speech deficit - Psychiatric Psychiatric exam: Absent: homicidal ideation, suicidal ideation - Skin Skin exam: Present: dry, intact - Patient Status Disposition: Home, Self-Care Condition: Good Functional capacity at discharge: independent ambulation Overall status at discharge: patient is progressing back to baseline - Discharge Instructions Follow Up With: NONE,PCP [Primary Care Provider] - 01/26/18 9:00 am (please follow up with Jasen Ragsdale ) Additional Instructions: - Patient denied SI or HI patient denied any safety concerns patient reports ERD has mental health outpatient follow-up at [facility] he reports he has an appointment at 1 PM today. - Patient is not interested in substance treatment resources at this time he reports ERD has them. - Discontinue one-to-one sitter and per psychiatry patient does not need further hospitalization can discontinue or drop pink slip - Diet and Activity Activity: increase activity as tolerated Diet: advance to your usual diet <Bandar Crews - Last Filed: 01/13/18 14:31> Orders not resulted at time of discharge: Pending orders 01/13/18 04:12 Culture,Blood [BC] Routine 01/13/18 12:19 EKG [ECG 12 lead ECG] [ECG] Stat Date of Encounter: 01/13/18 - Discharge Diagnosis (1) Polysubstance (including opioids) dependence w/o physiol dependence Status: Chronic (2) Acute psychosis Status: Resolved (3) Suicidal ideation Status: Resolved (4) DVT prophylaxis Status: Acute (5) Rhabdomyolysis Status: Resolved Qualifiers: Rhabdomyolysis type: non-traumatic Qualified Code(s): M62.82 - Rhabdomyolysis (6) Schizophrenia Status: Chronic Qualifiers: Schizophrenia type: paranoid schizophrenia Qualified Code(s): F20.0 - Paranoid schizophrenia (7) ROSA ELENA (acute kidney injury) Status: Resolved (8) Asthma Status: Chronic Qualifiers: Asthma severity: mild Asthma persistence: persistent Asthma complication type: uncomplicated Qualified Code(s): J45.30 - Mild persistent asthma, uncomplicated (9) Tobacco dependence Status: Chronic (10) SIRS (systemic inflammatory response syndrome) Status: Acute (11) Peripheral neuropathy Status: Chronic Qualifiers: Peripheral neuropathy type: polyneuropathy, unspecified Qualified Code(s): G62.9 - Polyneuropathy, unspecified Hospital course: Mr. Conrad is a 27 year old male - Time Spent with Patient Total time spent providing and/or coordinating discharge services: Date of admission: 01/13/18 01:40 Primary care physician: PCP NONE Consults: 01/13/18 05:30 Consult to Thread Spinner [CONS] Routine Reason for SW Consult: mental health 01/13/18 09:47 Consult to Psychiatry [CONS] Routine Consulting Provider: Psychiatry [place] Reason consult: [place] slip on chart [place] initiated date and time: 01/13/2018 5PM - Constitutional Vitals: Temp Pulse Resp BP Pulse Ox 98.5 F 61 18 103/58 100 01/13/18 12:12 01/13/18 12:12 01/13/18 12:12 01/13/18 12:12 01/13/18 12:12 - Attending Attestation Patient was seen and examined. I agree with the discharge summary as dictated above by the resident physician. Discharge plans and recommendations were made under my direct supervision.
[2018-01-13] MEDS: Naloxone 0.4 MG/ML INJ IVP PRN ×2 (14:37→14:46)
[2018-01-13] MEDS ORDERED: 0.9 % Sodium Chloride 1,000 ML IVC ONE (14:48)
[2018-01-13] MEDS ORDERED: Ziprasidone 20 MG CAPSULE PO SCH (14:57)
[2018-01-13 20:40] VITALS: BP 92/52
--- NOTE | 2018-01-13 21:56 | Event Note ---
Date of Encounter: 01/13/18 Time of Encounter: 21:53 Called to the patient room due to patient wanting to leave AMA. On arrival noted the patient to be calm, but anxious. He expressed that his discharge was delayed due to his sleepiness after taking geodon, which apparently is a home med. The patient reported that he does not take the geodon at home, so when he gets it, he is very drowsy. He indicated that he would not take it at home. Patient is alert and oriented x3, he denies suicidal thoughts or wanting to harm himself. Per nursing the patient has not made any threats to hurt himself. He denied wanting to hurt himself to me also. I spoke with psych Dr. Cui, due to the patient mother stating she would lurdes the hospital if patient was allowed to leave. Patient was originally pink slipped, she spoke with me in detail regarding her discussions with the patient today, and she stated the patient did not state any suicidal ideations. He also did not want to go into any treatment centers, which are voluntary. She indicated in her note and on the phone, that it was okay for the patient to leave, as long as he had not expressed any suicidal ideation, which he reportedly had not. I spoke with the patient's mother, with the patient next to me, with his permission. I relayed the information from Dr. Cui that she should seek POA or guardianship over the patient if she wanted more control over his well-being. I told the mother it was okay to call director social tomorrow, so they could explain the process to her. The patient mother was also told that the patient had a right to leave if he had no expressions/intentions to hurt himself. She expressed her understanding and stated she was also a drug addict, but recovered. She stated that her trying to gain some control would be the best for him. She indicated she would get his meds at a urgent care this week. Patient signed AMA and left.
--- NOTE | 2018-01-14 16:23 | Electrocardiograph Report ---
[place] [id number] Test Date: 2018-01-13 Pat Name: Giancarlo Conrad Department: 112 Room: 2A22 Gender: M Tie Inspector: : [id number] Requested By: Bandar Crews Order Number: [id number] Reading MD: Jt Sean Measurements Intervals [place] Rate: 75 P: 62 RI: 129 QRS: 25 QRSD: 83 T: 30 QT: 403 QTc: 432 Interpretive Statements SINUS RHYTHM WITH SINUS ARRHYTHMIA Electronically Signed On 01-14-2018 16:21:35 EDT by Jt Sena
== END 2018-01-13 22:00 | disposition home or self-care (01) ==
LOC: EMEROO 16:23 → 2ANU 16:23
PROVIDERS: ADMIT Internal Medicine; ATTEND Family Medicine

== ENCOUNTER 2018-03-11 21:52 | Observation (INO) ==
[2018-03-11] MEDS ORDERED: Isovue-370 500 ML INFUS..BTL IV ONE (22:07)
[2018-03-11] MEDS ORDERED: 0.9 % Sodium Chloride 1,000 ML IVC ONE (22:08)
[2018-03-11] MEDS ORDERED: *HR* LORazepam 2 MG/ML VIAL IVP ONE (22:09)
[2018-03-11 22:23] LABS: Bilirubin,Urine Small (Negative); Blood,Urine Negative (Negative); Clarity,Urine Clear (Clear); Color,Urine Yellow (Yellow); Glucose,Urine (UA) Normal (Normal); Ketones,Urine Trace mg/dL (Negative); Leukocyte Esterase,Urine Negative (Negative); Nitrite,Urine Negative (Negative); PH,Urine 7.5 pH Units (5.0-8.0); Protein,Urine 100 mg/dL (Neg-Trace); Specific Gravity,Urine 1.009 (1.010-1.025); Urobilinogen,Urine Normal (Normal)
[2018-03-11 22:24] LABS: Bacteria,Urine None Seen per hpf (None-Few); Hyaline Casts,Urine None Seen per lpf (None-Few); RBC,Urine 0-3 per hpf (0-3); Squamous Epithelial Cell,Urine Many per lpf (None-Few)
[2018-03-11 22:35] LABS: Sperm,Urine Present
[2018-03-11 22:44] LABS: Basophils % 0.3 %; Eosinophils # 0.1 K/mcL (0.0-0.6); Eosinophils % 1.2 %; Hematocrit 38.9 % (37.5-50.1); Hemoglobin 13.4 g/dL (12.9-16.9); Immature Granulocytes % 0.2 % (0-4); Lymphocytes # 2.4 K/mcL (0.6-4.6); Lymphocytes % 24.5 %; Mean Corpuscular HGB Conc 34.4 g/dL (31.6-35.5); Mean Corpuscular Hemoglobin 27.5 pg (28.0-33.3); Mean Corpuscular Volume 79.7 fL (83.0-100.0); Mean Platelet Volume 10.2 fL (9.4-12.4); Monocytes % 10.2 %; Neutrophils # 6.2 K/mcL (1.6-8.9); Platelet Count 361 K/mcL (140-400); Red Blood Count 4.88 M/mcL (4.19-5.50); Red Cell Distribution Width 13.5 % (11.5-14.5); Segmented Neutrophils % 63.6 %
[2018-03-11 22:46] LABS: Amphetamine Screen,Urine Positive ng/mL (Cutoff=1000); Barbiturate Screen,Urine Negative ng/mL (Cutoff=200); Benzodiazepines Screen,Urine Negative ng/mL (Cutoff=200); Cannabinoid Screen,Urine Positive ng/mL (Cutoff = 50); Cocaine Screen,Urine Positive ng/mL (Cutoff= 300); Opiate Screen,Urine Positive ng/mL (Cutoff=300); Phencyclidine Screen,Urine Negative ng/mL (Cutoff=25)
--- NOTE | 2018-03-11 22:55 | Emergency Department Note ---
Disposition Clinical Impression: Polysubstance abuse, Lactic acidosis Disposition: Admitted As Inpatient Condition: Good Time of Disposition: 03:53 General Adult HPI - General Chief complaint: ED General Medical Stated complaint: rash all over, body on fire Time Seen by Provider: 03/11/18 21:57 Source: patient, EMS Limitations: no limitations Nursing Notes Reviewed: Yes Vital Signs Reviewed: Yes - History of Present Illness HPI Narrative: 27-year-old male presented to the emergency department with racing heart, difficult to breathing as well as a rash all over his body and pain all over his body. He states he does have a history of IV drug abuse but says he has not used in a while and has not drink alcohol. Said over the last couple days he has had body aches and feels like he has a blood infection and he is having a rash everywhere. Patient is alert and oriented to himself and place but not time. He states it is Wednesday when it is Wednesday. Patient states that he just wants it checked out for his rash no swelling as he says he has a rash and hives everywhere. Patient does state that he has low heart failure as well as a blood infection he has had since he was a child. Patient otherwise has no complaints at this time. Patient was brought in by EMS as he was running to the fire station todayhe was tachycardic at that time but he was sweating from sprinting to the fire station. Pain Scale: 10 - Related Data Previous Rx's Medication Instructions Recorded Ziprasidone [Geodon] 80 mg PO BID #60 capsule 11/02/17 hydrOXYzine pamoate [HydrOXYzine 25 mg PO TID PRN #90 capsule 11/02/17 Pamoate] NALOXONE 4 MG Nasal [place] [Narcan] 4 mg NS AD #2 sprays 01/29/18 Allergies Allergy/AdvReac Type Severity Reaction Status Date / Time Penicillins Allergy Hives Verified 02/01/18 22:39 All systems ED: reviewed and negative except as stated. Review of Systems: As Per HPI Constitutional: Denies: fever, chills, weakness, weight change Eyes: Denies: eye pain, eye discharge, vision change ENT ED: Denies: ear pain, throat pain, dental pain, hearing loss, epistaxis, congestion, dysphagia Cardiovascular: Denies: chest pain, palpitations, dyspnea on exertion, edema, syncope Respiratory: Denies: cough, dyspnea, wheezes, hemoptysis, stridor Gastrointestinal: Denies: abdominal pain, nausea, vomiting, diarrhea, constipation, hematemesis, melena, hematochezia Genitourinary: Denies: urgency, dysuria, frequency, hematuria Musculoskeletal: Denies: back pain, neck pain, arthralgia, myalgia Integumentary: Denies: rash, abrasion, lesions Neurological: Denies: headache, weakness, numbness, paresthesias, confusion, abnormal gait, vertigo Psychiatric: Denies: anxiety, depression, suicidal thoughts, homicidal thoughts , auditory hallucinations, visual hallucinations Endocrine: Denies: fatigue Hematological/Lymphatic: Denies: easy bleeding, easy bruising Allergic/Immunologic: Denies: facial swelling, urticaria Past Medical History - Past Medical History Attestation: Yes The following information was validated with the patient. Source: patient Medical history: Reports: asthma, hepatitis, renal disease, other Surgical history: Reports: tonsilectomy Psychiatric history: Reports: bipolar, schizophrenia - Social History Smoking Status: Current every day smoker Smokeless Tobacco Status: No Alcohol use: Reports: occasionally Drug use: Reports: cocaine, opiates, marijuana, methamphetamine, IV Drug Use Physical Exam - General Limitations: no limitations General appearance: alert - Head Head exam: atraumatic, normocephalic, normal inspection - Eye Eye exam: Present: normal appearance, PERRL, EOMI - ENT ENT exam: normal exam, normal oropharynx, mucous membranes moist - Neck Neck exam: Present: normal inspection, full ROM, trachea midline - Chest Chest inspection: Present: normal inspection, symmetric chest wall rise - Respiratory Respiratory exam: Present: normal lung sounds bilaterally - Cardiovascular Cardiovascular exam: Present: normal rhythm, tachycardia, normal heart sounds - Abdominal Exam Abdominal exam: Present: soft, Non-Tender, normal bowel sounds. Absent: tenderness, distention, guarding, rebound, rigidity - Extremities Exam Extremities exam: Present: normal inspection, full ROM. Absent: tenderness, pedal edema - Expanded Lower Extremity Exam Neurovascular/Tendon exam: Absent: motor deficit, sensory deficit, tendon deficit - Back Exam Back exam: Present: normal inspection, full ROM. Absent: tenderness - Neurological Exam Neurological exam: Present: alert, oriented X3 - Skin Skin exam: Present: warm, dry, intact, normal color Course Course Narrative: 27-year-old male presents to the emergency department with rash. Patient was saying that he did not want to sign consent as he does not know what is on the piece of paper for consent for treatment. He says he wants speak with his family as he feels like he is not able to make decisions. Patient was not oriented to time and unable to make cognitive decisions. Due to this we pink slipped the patient. We are going do a workup for possible endocarditis including blood cultures, CBC, BMP, CT angios of the chest as well as urinalysis and urine drug screen. We will also get EKG. We will give patient Ativan and Benadryl. - Reevaluation(s) Reevaluation #1: Patient was being very abusive to staff not following directions and did not want to be treated he still was not making any cognitive stents and patient was arty pink slipped so we will restrain the patient was soft restraints to the bed we will also give him intramuscular Haldol, Ativan, Benadryl. Time: 23:40 Vital Signs Temperature 98.4 F 03/11/18 21:58 Pulse Rate 121 03/11/18 21:58 Respiratory Rate 18 03/11/18 21:58 Blood Pressure 139/97 03/11/18 21:58 O2 Sat by Pulse Oximetry 98 03/11/18 21:58 Temperature 97.7 F 03/12/18 04:28 Pulse Rate 74 03/12/18 04:28 Respiratory Rate 16 03/12/18 04:28 Blood Pressure 136/76 03/12/18 04:28 O2 Sat by Pulse Oximetry 100 03/12/18 04:28 Oxygen Delivery Oxygen Delivery Room Air Medical Decision Making - MDM Narrative Medical decision making narrative: 27-year-old male presenting to the emergency department in worry of having blood infection as well as a rash. Patient declined to have any Benadryl as he says it makes his blood infection in his body worse. We also tried to give him Haldol to calm him down he said he cannot have that we had to pink slip the patient due to him not able to make cognitive decisions on his own. Patient was not oriented to time. We did give attempt to give patient Ativan he again did not receive that. Did give patient IV fluids. Labs did show a lactic acidosis. There is no other lab abnormalities. Patient states he did not have any drugs or alcohol prior to coming here. Although the urine drug screen did show an positive for amphetamines, cocaine, opiates, marijuana. Due to patient' s polysubstance abuse as well as a lactic acidosis we felt patient needed admission to the hospital. 1A we will see the patient when they get on the floor and he stabilizes. Patient did not have any suicidal or homicidal ideations. We did give patient 1 L IV bolus of fluids. Patient was accepted to the hospitalist service I spoke with Dr. Lerner who agreed to admit the patient to their service. He is stable at this time. We did get CT of the chest worrying about possible endocarditis or pulmonary embolism as patient was tachycardic. EkG had no acute findings. Chest CTA 03/12/18 00:01 IMPRESSION: No evidence of pulmonary embolism or acute pulmonary abnormality. D/ / Abraham Huerta / Abraham Huerta Interpreting Provider: Abraham Huerta - Medical Records Medical records reviewed: Yes I reviewed the patient's medical records. - Lab Data Lab results reviewed: Yes I reviewed the patient's lab results. Result diagrams: 03/11/18 22:24 03/11/18 22:24 Lab Results 03/11/18 03/11/18 03/11/18 Range/Units 22:05 22:06 22:24 WBC 9.8 (4.3-11.1) K/mcL RBC 4.88 (4.19-5.50) M/mcL Hgb 13.4 (12.9-16.9) g/dL Hct 38.9 (37.5-50.1) % MCV 79.7 L (83.0-100.0) fL MCH 27.5 L (28.0-33.3) pg MCHC 34.4 (31.6-35.5) g/dL RDW 13.5 (11.5-14.5) % Plt Count 361 (140-400) K/mcL MPV 10.2 (9.4-12.4) fL Immature Gran % 0.2 (0-4) % Seg Neutrophils % 63.6 % Lymphocytes % 24.5 % Monocytes % 10.2 % Eosinophils % 1.2 % Basophils % 0.3 % Neutrophils # 6.2 (1.6-8.9) K/mcL Lymphocytes # 2.4 (0.6-4.6) K/mcL Monocytes # 1.0 (0.0-1.3) K/mcL Eosinophils # 0.1 (0.0-0.6) K/mcL Basophils # 0.0 (0.0-0.2) K/mcL Sodium (136-145) mEq/L Potassium (3.5-5.1) mEq/L Chloride (98-107) mEq/L Carbon Dioxide (23-29) mEq/L BUN (6-20) mg/dL Creatinine (0.70-1.30) mg/dL Est GFR ( Amer) (> 60) Est GFR (Non-Af Amer) (> 60) BUN/Creatinine Ratio (6-26) Glucose (70-105) mg/dL Calculated Osmolality (280-300) Lactic Acid (0.5-2.2) mmol/L Calcium (8.6-10.3) mg/dL Magnesium (1.6-2.6) mg/dL Urine Color Yellow (Yellow) Urine Clarity Clear (Clear) Urine pH 7.5 (5.0-8.0) pH Units Ur Specific [place] 1.009 L (1.010-1.025) Urine Protein 100 H (Neg-Trace) mg/dL Urine Glucose (UA) Normal (Normal) mg/dL Urine Ketones Trace H (Negative) mg/dL Urine Blood Negative (Negative) Urine Nitrite Negative (Negative) Urine Bilirubin Small H (Negative) Urine Urobilinogen Normal (Normal) mg/dL Ur Leukocyte Esterase Negative (Negative) Urine Microscopic RBC 0-3 (0-3) per hpf Urine Microscopic WBC 5-15 H (0-3) per hpf Ur Squamous Epith Cells Many H (None-Few) per lpf Urine Bacteria None Seen (None-Few) per hpf Hyaline Casts None Seen (None-Few) per lpf Urine Sperm Present Ur Culture Indicated? NO (NO) Urine Opiates Screen Positive H (Sxdbqk=154) ng/mL Ur Barbiturates Screen Negative (Ppauuy=118) ng/mL Ur Phencyclidine Scrn Negative (Cutoff=25) ng/mL Ur Amphetamines Screen Positive H (Xgzmdx=2072) ng/mL U Benzodiazepines Scrn Negative (Xqhybv=726) ng/mL Urine Cocaine Screen Positive H (Cutoff= 300) ng/mL U Marijuana (THC) Screen Positive H (Cutoff = 50) ng/mL Ur Drug Screen Interp See Below 03/11/18 03/11/18 03/12/18 Range/Units 22:24 22:24 02:48 WBC (4.3-11.1) K/mcL RBC (4.19-5.50) M/mcL Hgb (12.9-16.9) g/dL Hct (37.5-50.1) % MCV (83.0-100.0) fL MCH (28.0-33.3) pg MCHC (31.6-35.5) g/dL RDW (11.5-14.5) % Plt Count (140-400) K/mcL MPV (9.4-12.4) fL Immature Gran % (0-4) % Seg Neutrophils % % Lymphocytes % % Monocytes % % Eosinophils % % Basophils % % Neutrophils # (1.6-8.9) K/mcL Lymphocytes # (0.6-4.6) K/mcL Monocytes # (0.0-1.3) K/mcL Eosinophils # (0.0-0.6) K/mcL Basophils # (0.0-0.2) K/mcL Sodium 137 (136-145) mEq/L Potassium 3.7 (3.5-5.1) mEq/L Chloride 103 (98-107) mEq/L Carbon Dioxide 21 L (23-29) mEq/L BUN 10 (6-20) mg/dL Creatinine 1.13 (0.70-1.30) mg/dL Est GFR ( Amer) > 60 (> 60) Est GFR (Non-Af Amer) > 60 (> 60) BUN/Creatinine Ratio 9 (6-26) Glucose 105 (70-105) mg/dL Calculated Osmolality 283 (280-300) Lactic Acid 4.3 H* 1.0 (0.5-2.2) mmol/L Calcium 10.1 (8.6-10.3) mg/dL Magnesium 2.0 (1.6-2.6) mg/dL Urine Color (Yellow) Urine Clarity (Clear) Urine pH (5.0-8.0) pH Units Ur Specific [place] (1.010-1.025) Urine Protein (Neg-Trace) mg/dL Urine Glucose (UA) (Normal) mg/dL Urine Ketones (Negative) mg/dL Urine Blood (Negative) Urine Nitrite (Negative) Urine Bilirubin (Negative) Urine Urobilinogen (Normal) mg/dL Ur Leukocyte Esterase (Negative) Urine Microscopic RBC (0-3) per hpf Urine Microscopic WBC (0-3) per hpf Ur Squamous Epith Cells (None-Few) per lpf Urine Bacteria (None-Few) per hpf Hyaline Casts (None-Few) per lpf Urine Sperm Ur Culture Indicated? (NO) Urine Opiates Screen (Lxevyi=954) ng/mL Ur Barbiturates Screen (Jrledo=249) ng/mL Ur Phencyclidine Scrn (Cutoff=25) ng/mL Ur Amphetamines Screen (Voaxbr=3987) ng/mL U Benzodiazepines Scrn (Vxncni=007) ng/mL Urine Cocaine Screen (Cutoff= 300) ng/mL U Marijuana (THC) Screen (Cutoff = 50) ng/mL Ur Drug Screen Interp - Radiology Data Radiology results reviewed: Yes I reviewed the patient's radiology results. - EKG Data EKG #1 EKG attestation: Yes I reviewed and interpreted this EKG. EKG results narrative: EKG done at 2210 review myself and the attending shows sinus tachycardia at a rate of 1:15, CT 122, QTC [address] changes no T-wave changes no other signs of ischemia. No heart strain, hypertrophy, heart block. No WPW/Brugada/ HOCM. EKG shows tachycardia when compared with old one done 02/01/18 Attestation Statement - Attestation Attestation: I examined this patient and my medical decision-making was reviewed with the Resident Physician. I agree with the documented findings, disposition and treatment plan as described except to the extent set forth below. Polysubstance abuse, lactic acidosis, excited delirium. Patient required chemical restraint. He lactic cognitive capabilities of making informed decisions at this time. Plan to admit for trending of lactate, clearance of mental status. No focal neurological deficit. I spent greater than 35 minutes critical care time resuscitating this acutely ill patient suffering from excited delirium. This was excluding billable procedures.
[2018-03-11 23:03] LABS: BUN/Creatinine Ratio 9 (6-26); Blood Urea Nitrogen 10 mg/dL (6-20); Calcium 10.1 mg/dL (8.6-10.3); Carbon Dioxide 21 mEq/L (23-29); Chloride 103 mEq/L (98-107); Glucose 105 mg/dL (70-105); Osmolality,Calculated 283 (280-300); Potassium 3.7 mEq/L (3.5-5.1); Sodium 137 mEq/L (136-145); eGFR For Non-African Americans > 60 (> 60)
[2018-03-11] MEDS ORDERED: Ziprasidone injection 20 MG/ML VIAL IM ONE ×2 (23:37→23:38)
[2018-03-11] MEDS ORDERED: *HR* LORazepam 2 MG/ML VIAL IM ONE (23:39)
[2018-03-11] MEDS ORDERED: Water for inj. (sterile) 10 ML IV ONE (23:39)
[2018-03-12] MEDS ORDERED: Naloxone 0.4 MG/ML INJ IVP PRN (03:33)
[2018-03-12] MEDS ORDERED: hydrOXYzine pamoate 25 MG CAPSULE PO PRN (03:36)
[2018-03-12] MEDS ORDERED: *HR* LORazepam 2 MG/ML VIAL IVP PRN (03:48)
--- NOTE | 2018-03-12 04:02 | Internal Med History&Physical ---
Date of Encounter: 03/12/18 Time of Encounter: 03:55 Internal Medicine - H&P: HPI Chief complaint: i have blood infection Admitted From: Home Plans for Post Hospital Care: Home History of present illness: Mr. Conrad is a 27 year old male presents with chief complaint of "blood infection". Patient states this started 2 days ago. He was working in his backyard pulling weeds. He started having whole-body pains and rash which was all over as well as muscle aches. He denied fever, chills, chest pain shortness of breath. He reports generalized diffuse abdominal pain. He denies nausea, vomiting, changes in urine or bowel function. Patient was seen running to the fire station and was brought in by EMS. Patient has a history of IV drug use. He has used cocaine, benzodiazepine, heroin, methamphetamine in the past. Patient was alert and oriented to self, place but not to time. In the emergency department he was pink slipped. At one point in time in the emergency department patient was abusive and was in 4- point restraints. He was given Haldol, Ativan, Benadryl. During my examination patient was calm and restraints have been taken off. Past Med Surg Social Fam HX - Past Medical History Medical history: asthma, hepatitis, renal disease, other Additional medical history: Peripheral neuropathy Psychiatric history: bipolar, schizophrenia - Past Surgical History Surgical History: tonsilectomy - Social History Smoking Status: Current every day smoker Smokeless Tobacco Status: No Alcohol use: occasionally Drug use: cocaine, opiates, marijuana, methamphetamine, IV Drug Use - Family History Mother Living Status: Still Living Internal Medicine - H&P: Meds Ziprasidone [Geodon] 80 mg PO BID #60 capsule 11/02/17 [Rx] hydrOXYzine pamoate [HydrOXYzine Pamoate] 25 mg PO TID PRN #90 capsule 11/02/17 [Rx] NALOXONE 4 MG Nasal [place] [Narcan] 4 mg NS AD #2 sprays 01/29/18 [Rx] 3 Allergy/AdvReac Type Severity Reaction Status Date / Time Penicillins Allergy Hives Verified 02/01/18 22:39 All Systems PM: A 10-system review of systems was performed and is negative for pertinent findings except as documented above in the HPI. Review of systems: As per history of present illness otherwise patient would not answer any other questions. - Constitutional Vitals: Temp Pulse Resp BP Pulse Ox 98.2 F 73 12 128/79 100 03/12/18 03:25 03/12/18 03:25 03/12/18 03:25 03/12/18 03:25 03/12/18 03:25 Exam: General: Anxious HEENT: Head atraumatic, normocephalic, EOMI, PERRL, absent ear discharge or trauma, Moist Mucous Membranes, uvula midline. Absent subconjunctival hemorrhages Neck: nontender to palpation, absent lymphadenopathy, Cardiovascualr: Regular rate and rhythm with no murmur, absent gallops or rubs, absent pedal edema, radial pulses 2 out of 4 Lungs: Clear to auscultation bilaterally, not in respiratory distress Abdomen: Soft and tender to light touch,, nondistended positive bowel sounds, Skin: warm and dry, absent rash, patient has numerous petechiae on his ankles bilaterally. MSK: absent clubbing, cyanosis, joints without swelling Neuro: Cranial nerves II through XII intact, UE and LE sensation equal bilaterally, UE and LEstrength 5/5, alert oriented 3, Heel to [place] intact, finger to nose intact, Gait intact, rhombergs sign negative, b/l plantar reflexes downwards Psych: Poor insight and judgment, anxious Internal Med - H&P Results - Labs CBC & Chem 7: 03/11/18 22:24 03/11/18 22:24 - Assessment and plan (1) Acute psychosis Current Visit: Yes Status: Acute Assessment and plan: 27 y/o male presents with chief complaint of "blood infection" Patient initially reported he had rash but there is no visible rash He is not oriented to time. He has some tangential thought processes. Urine drug screen positive for opiates and amphetamines cocaine and marijuana. Patient is pink slipped We will start patient on his home dose of Geodon and hydroxyzine. Ativan when necessary for anxiety. (2) Lactic acidosis Current Visit: Yes Status: Acute Assessment and plan: Patient's lactic acid is 4.3 on admission He does not have leukocytosis, fever There is no signs of infection on his skin. Lungs are clear. CT is negative Urinalysis negative for infection Repeat lactic acid was 1.0 after IV fluid administration We will obtain hepatitis, HIV, CMP. Currently we will hold antibiotics as there is no obvious source of infection. Blood cultures have been drawn. (3) Polysubstance abuse Current Visit: Yes Status: Acute Assessment and plan: Patient UDS positive for opiates and amphetamines cocaine, marijuana. She will need to undergo detox and afterwards she will need a psychiatric consultation for formal evaluation. (4) DVT prophylaxis Current Visit: Yes Status: Acute Assessment and plan: EPC D. (5) Schizophrenia Current Visit: Yes Status: Chronic Assessment and plan: Continue home Geodon and hydroxyzine Psychiatric consultation. Qualifiers: Schizophrenia type: paranoid schizophrenia Qualified Code(s): F20.0 - Paranoid schizophrenia - Time Spent With Patient Total time spent is greater than 50% in coordination of care (as documented) at patient's floor/unit and/or counseling patient:
[2018-03-12] MEDS: 0.9 % Sodium Chloride 1,000 ML IVC SCH ×2 (06:20→17:16)
[2018-03-12 07:02] LABS: Alanine Aminotransferase 13 Units/L (7-52); Albumin 3.5 g/dL (3.5-5.7); Albumin/Globulin Ratio 1.1 (1.1-2.2); Alkaline Phosphatase 46 Units/L (34-104); Aspartate Amino Transferase 19 Units/L (13-39); BUN/Creatinine Ratio 11 (6-26); Bilirubin,Total 0.7 mg/dL (0.3-1.0); Blood Urea Nitrogen 11 mg/dL (6-20); Calcium 9.1 mg/dL (8.6-10.3); Carbon Dioxide 24 mEq/L (23-29); Chloride 111 mEq/L (98-107); Globulin 3.2 g/dL (2.4-3.5); Glucose 109 mg/dL (70-105); Osmolality,Calculated 294 (280-300); Potassium 3.5 mEq/L (3.5-5.1); Sodium 142 mEq/L (136-145); Total Protein 6.7 g/dL (6.4-8.9); eGFR For Non-African Americans > 60 (> 60)
[2018-03-12 07:33] LABS: Hepatitis B Surface Antigen Nonreactive (Nonreactive)
[2018-03-12] MEDS: Ziprasidone 80 MG CAPSULE PO SCH ×2 (09:33→20:00)
--- NOTE | 2018-03-12 10:30 | Consult Note ---
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 Presentation likely secondary to multiple drugs in system. Expect psychosis is substance induced. Given Geodon at time of last discharge. Recommend continuing this for now. Will try and reevaluate when he is more awake. History of Present Illness Requesting Physician: Homero Lerner MD Reason for consult: psychosis History of present illness: Mr. Conrad is a 27 year old male who was admitted for claims of a burning rash on his body. Currently undergoing medical work-up. Tox screen positive for multiple substances. Client has a history of presenting to the hospital in a psychotic state but unclear if his presentation secondary to a thought disorder or whether he is strictly psychosis secondary to polysubstance abuse. On eval today he cannot be awakened. According to sitter he was awake this morning but that he has been difficult to arouse recently. Client not responding to name calling or shoulder shake. Likely crashing from multiple drugs in system. Cannot get any meaningful history from him at this time. Will try and reevaluate tomorrow. In meantime can continue Geodon from last admission. Haldol ok as a prn but monitor QTc as Geodon can prolong this and predispose to arrhythmias. CC: Homero Lerner MD Past Med Surg Social Fam HX - Past Medical History Medical history: asthma, hepatitis, renal disease, other - Past Psychiatric History Psychiatric history: Reports: schizophrenia, previous psychiatric hospitalization Family psychiatric history: Unknown Family History of Suicide: Unknown - Past Surgical History Surgical History: tonsilectomy - Social History Smoking Status: Current every day smoker Smokeless Tobacco Status: No Alcohol use: occasionally Drug use: cocaine, opiates, marijuana, methamphetamine, IV Drug Use - Family History Mother Living Status: Still Living Medications & Allergies Ziprasidone [Geodon] 80 mg PO BID #60 capsule 11/02/17 [Rx] hydrOXYzine pamoate [HydrOXYzine Pamoate] 25 mg PO TID PRN #90 capsule 11/02/17 [Rx] NALOXONE 4 MG Nasal [place] [Narcan] 4 mg NS AD #2 sprays 01/29/18 [Rx] 3 Allergy/AdvReac Type Severity Reaction Status Date / Time Penicillins Allergy Hives Verified 08/14/18 22:39 Review of Systems Constitutional: Denies: fever, chills, weakness, weight change Eyes: Denies: eye pain, vision change Ears, Nose, Throat: Denies: ear pain, throat pain, dental pain, hearing loss, congestion Cardiovascular: Denies: chest pain, palpitations, dyspnea on exertion Respiratory: Denies: cough, dyspnea, wheezes Gastrointestinal: Denies: abdominal pain, nausea, vomiting, diarrhea, constipation Genitourinary male: Denies: urgency, dysuria, frequency, genital lesions Musculoskeletal: Denies: joint swelling, joint pain Integumentary: Denies: rash, lesions, pruritus Neurological: Denies: headache, weakness, numbness, memory loss Endocrine: Denies: fatigue, heat or cold intolerance Hematologic/Lymphatic: Denies: easy bruising, lymphadenopathy Allergic/Immunologic: Denies: urticaria, itchy eyes Psychiatry Exam - Constitutional Vitals: Temp Pulse Resp BP Pulse Ox 98.5 F 78 16 109/65 100 03/12/18 08:00 03/12/18 08:00 03/12/18 08:00 03/12/18 08:00 03/12/18 09:30 General appearance: age & developmentally appropriate - Musculoskeletal Gait: other Station: relaxed Strength & Tone: other - Psychiatric Patient Orientation: Yes Other Level of alertness: Sedated Behavior: uncooperative Psychomotor activity: Slowed Eye Contact: No Eye Contact Mood Description: Other Affect description: flat Speech Volume: No speech Speech pattern: non-verbal Language & Vocabulary: other Results - Labs Labs: Laboratory Last Values WBC 9.8 K/mcL (4.3-11.1) 03/11/18 22:24 RBC 4.88 M/mcL (4.19-5.50) 03/11/18 22:24 Hgb 13.4 g/dL (12.9-16.9) 03/11/18 22:24 Hct 38.9 % (37.5-50.1) 03/11/18 22:24 MCV 79.7 fL (83.0-100.0) L 03/11/18 22:24 MCH 27.5 pg (28.0-33.3) L 03/11/18 22:24 MCHC 34.4 g/dL (31.6-35.5) 03/11/18 22:24 RDW 13.5 % (11.5-14.5) 03/11/18 22:24 Plt Count 361 K/mcL (140-400) 03/11/18 22:24 MPV 10.2 fL (9.4-12.4) 03/11/18 22:24 Immature Gran % 0.2 % (0-4) 03/11/18 22:24 Seg Neutrophils % 63.6 % 03/11/18 22:24 Lymphocytes % 24.5 % 03/11/18 22:24 Monocytes % 10.2 % 03/11/18 22:24 Eosinophils % 1.2 % 03/11/18 22:24 Basophils % 0.3 % 03/11/18 22:24 Neutrophils # 6.2 K/mcL (1.6-8.9) 03/11/18 22:24 Lymphocytes # 2.4 K/mcL (0.6-4.6) 03/11/18 22:24 Monocytes # 1.0 K/mcL (0.0-1.3) 03/11/18 22:24 Eosinophils # 0.1 K/mcL (0.0-0.6) 03/11/18 22:24 Basophils # 0.0 K/mcL (0.0-0.2) 03/11/18 22:24 Sodium 142 mEq/L (136-145) 03/12/18 04:58 Potassium 3.5 mEq/L (3.5-5.1) 03/12/18 04:58 Chloride 111 mEq/L (98-107) H 03/12/18 04:58 Carbon Dioxide 24 mEq/L (23-29) 03/12/18 04:58 BUN 11 mg/dL (6-20) 03/12/18 04:58 Creatinine 0.96 mg/dL (0.70-1.30) 03/12/18 04:58 Est GFR ( Amer) > 60 (> 60) 03/12/18 04:58 Est GFR (Non-Af Amer) > 60 (> 60) 03/12/18 04:58 BUN/Creatinine Ratio 11 (6-26) 03/12/18 04:58 Glucose 109 mg/dL (70-105) H 03/12/18 04:58 Calculated Osmolality 294 (280-300) 03/12/18 04:58 Lactic Acid 1.0 mmol/L (0.5-2.2) 03/12/18 02:48 Calcium 9.1 mg/dL (8.6-10.3) 03/12/18 04:58 Magnesium 2.0 mg/dL (1.6-2.6) 03/11/18 22:24 Total Bilirubin 0.7 mg/dL (0.3-1.0) 03/12/18 04:58 AST 19 Units/L (13-39) 03/12/18 04:58 ALT 13 Units/L (7-52) 03/12/18 04:58 Alkaline Phosphatase 46 Units/L (34-104) 03/12/18 04:58 Creatine Kinase 80 Units/L (30-223) 03/12/18 04:58 Serum Total Protein 6.7 g/dL (6.4-8.9) 03/12/18 04:58 Albumin 3.5 g/dL (3.5-5.7) 03/12/18 04:58 Globulin 3.2 g/dL (2.4-3.5) 03/12/18 04:58 Albumin/Globulin Ratio 1.1 (1.1-2.2) 03/12/18 04:58 Urine Color Yellow (Yellow) 03/11/18 22:06 Urine Clarity Clear (Clear) 03/11/18 22:06 Urine pH 7.5 pH Units (5.0-8.0) 03/11/18 22:06 Ur Specific [place] 1.009 (1.010-1.025) L 03/11/18 22:06 Urine Protein 100 mg/dL (Neg-Trace) H 03/11/18 22:06 Urine Glucose (UA) Normal mg/dL (Normal) 03/11/18 22:06 Urine Ketones Trace mg/dL (Negative) H 03/11/18 22:06 Urine Blood Negative (Negative) 03/11/18 22:06 Urine Nitrite Negative (Negative) 03/11/18 22:06 Urine Bilirubin Small (Negative) H 03/11/18 22:06 Urine Urobilinogen Normal mg/dL (Normal) 03/11/18 22:06 Ur Leukocyte Esterase Negative (Negative) 03/11/18 22:06 Urine Microscopic RBC 0-3 per hpf (0-3) 03/11/18 22:06 Urine Microscopic WBC 5-15 per hpf (0-3) H 03/11/18 22:06 Ur Squamous Epith Cells Many per lpf (None-Few) H 03/11/18 22:06 Urine Bacteria None Seen per hpf (None-Few) 03/11/18 22:06 Hyaline Casts None Seen per lpf (None-Few) 03/11/18 22:06 Urine Sperm Present 03/11/18 22:06 Ur Culture Indicated? NO (NO) 03/11/18 22:06 Urine Opiates Screen Positive ng/mL (Uidcef=012) H 03/11/18 22:05 Ur Barbiturates Screen Negative ng/mL (Vvxiez=676) 03/11/18 22:05 Ur Phencyclidine Scrn Negative ng/mL (Cutoff=25) 03/11/18 22:05 Ur Amphetamines Screen Positive ng/mL (Qsunzx=5184) H 03/11/18 22:05 U Benzodiazepines Scrn Negative ng/mL (Nfztja=170) 03/11/18 22:05 Urine Cocaine Screen Positive ng/mL (Cutoff= 300) H 03/11/18 22:05 U Marijuana (THC) Screen Positive ng/mL (Cutoff = 50) H 03/11/18 22:05 Ur Drug Screen Interp See Below 03/11/18 22:05 Hep Bs Antigen Nonreactive (Nonreactive) 03/12/18 04:58 HIV Ag/Ab Combo Qual Nonreactive (Nonreactive) 03/12/18 04:58 Consult Discharge Plan - Plan Referrals: NONE,PCP [Primary Care Provider] -
--- NOTE | 2018-03-12 20:13 | Internal Med Progress Note ---
Hospitalist Progress Note - Encounter Date of Encounter: 03/12/18 Time of Encounter: 18:00 - Subjective Interval History: Patient complained of itching and rash today he remains sleeping most of his time as he is detoxing on exam it was found that the patient does have scabies he will be treated - Exam Vitals: Temp Pulse Resp BP Pulse Ox 97.8 F 65 14 113/65 100 03/12/18 19:39 03/12/18 19:39 03/12/18 19:39 03/12/18 19:39 03/12/18 19:39 Exam: As above - Assessment and Plan (1) Acute psychosis Current Visit: Yes Status: Acute Assessment and Plan: Patient remains under a 72 hour were pink slip with polysubstance abuse he was on admission positive for opiates methamphetamine and cocaine and marijuana. He does have long history of polysubstance abuse We will continue to monitor for any evidence of DTRs and withdrawal symptoms (2) DVT prophylaxis Current Visit: Yes Status: Acute Assessment and Plan: Per protocol (3) Schizophrenia Current Visit: Yes Status: Chronic Assessment and Plan: Patient was evaluated per psychiatry today. He was unable to be aroused for interview with psychiatry in the report. We will try again tomorrow (4) Polysubstance abuse Current Visit: Yes Status: Acute Assessment and Plan: Today he has been sleeping most of the probable crashing from all of the multiple substance within his system we will continue to monitor for any signs and symptoms of withdrawal (5) Lactic acidosis Current Visit: Yes Status: Resolved Assessment and Plan: Initially lactic acid was elevated at 4.3 he has normalized today to 1, (6) Scabies Current Visit: Yes Status: Acute Assessment and Plan: Shunt did complain of a rash today when examined T is positive for generalized papular rash with burrows indicative of scabies we will treat him with permethrin cream and start precautions for the staph - Summary of Assessment and Plan Summary of Assessment and Plan: Luca is a 23-year-old male who was admitted through the emergency room with periodic rash as well as for was found to have the multiple polysubstance within his system including opiates and amphetamines cocaine and marijuana. Today he has been sleeping most of the day and psychiatry was unable to get him awake for interview with a state that they will try again tomorrow. Lactic acid has normalized to 1 and this problem is resolved. Physical exam rash was examined and he was found to have papular rash generalized throughout his body is with a blowing of microscopic might we did institute precautions as well as to treat him with permethine cream. - Time Spent with Patient Total time spent is greater than 50% in coordination of care (as documented) at patient's floor/unit and/or counseling patient: less than 15 minutes Plan of Care Discussed with: patient Internal Medicine: Result - Labs CBC & Chem 7: 03/11/18 22:24 03/12/18 04:58 Labs: BMP 03/12/18 04:58 Sodium 142 Potassium 3.5 Chloride 111 H Carbon Dioxide 24 BUN 11 Creatinine 0.96 Glucose 109 H Calcium 9.1 Liver Function 03/12/18 Range/Units 04:58 Total Bilirubin 0.7 (0.3-1.0) mg/dL AST 19 (13-39) Units/L ALT 13 (7-52) Units/L Alkaline Phosphatase 46 (34-104) Units/L Albumin 3.5 (3.5-5.7) g/dL - VTE Documentation of Mechanical Device: Intermittent pneumatic compression device Consult Discharge Plan - Plan Referrals: NONE,PCP [Primary Care Provider] - (3) Schizophrenia Qualifiers: Schizophrenia type: paranoid schizophrenia Qualified Code(s): F20.0 - Paranoid schizophrenia
[2018-03-12] MEDS ORDERED: Permethrin CRM 60 GM TUBE TP ONE (20:15)
[2018-03-13 07:54] VITALS: BP 118/74
--- NOTE | 2018-03-13 09:21 | Consult Note ---
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 Mood appears stable. Suspect presentation related to substance abuse and not a primary thought disorder. Client cooperative with this marketing writer and sitter reports he has been fine all morning. Client denies SI/HI. Admits he does not take psych meds as prescribed and clearly abuses multiple substances. Was recently discharged from "[place]" for AOD treatment. If client is agreeable can refer him back there. Does not otherwise meet inpatient criteria at this time. Would discontinue sitter and remove pink slip. Have client follow up with outpatient psychiatrist for ongoing care. History of Present Illness Requesting Physician: Homero Lerner MD Reason for consult: psychosis History of present illness: Mr. Conrad is a 27 year old male who was admitted secondary to psychosis and complaints of a rash. Found to have scabies and currently being treated with permethrin cream. Had multiple drugs in system. Given prns yesterday and unable to be aroused for psych interview. Today he is alert and awake. Pleasant. Some lingering psychosis but mostly thoughts are organized. Per sitter he has been fine today. Client states he has mental health diagnoses of "Bipolar, Schizophrenic." Admits he does not follow through with outpatient care. However, he did say he was just discharged from "[place]" for AOD treatment last week. Suspect presentation more related to substance use than a primary thought disorder. Psychosis is already clearing. Mood appears stable. Client denies SI/HI. Denies wanting/needing anything from psych. Lives with mother and reports he plans to return to her house today. No need for inpatient stabilization at this time. CC: Homero Lerner MD Past Med Surg Social Fam HX - Past Medical History Medical history: asthma, hepatitis, renal disease, other - Past Psychiatric History Psychiatric history: Reports: bipolar, schizophrenia, previous psychiatric hospitalization Family psychiatric history: Unknown Family History of Suicide: Unknown - Past Surgical History Surgical History: tonsilectomy - Social History Smoking Status: Current every day smoker Smokeless Tobacco Status: No Alcohol use: occasionally Drug use: cocaine, opiates, marijuana, methamphetamine, IV Drug Use - Family History Mother Living Status: Still Living Medications & Allergies Unable To Obtain [Unable to Obtain] 03/12/18 [History] 3 Allergy/AdvReac Type Severity Reaction Status Date / Time Penicillins Allergy Hives Verified 02/01/18 22:39 Review of Systems Constitutional: Denies: fever, chills, weakness, weight change Eyes: Denies: eye pain, vision change Ears, Nose, Throat: Denies: ear pain, throat pain, dental pain, hearing loss, congestion Respiratory: Denies: cough, dyspnea, wheezes Gastrointestinal: Denies: abdominal pain, nausea, vomiting, diarrhea, constipation Genitourinary male: Denies: urgency, dysuria, frequency, genital lesions Musculoskeletal: Denies: joint swelling, joint pain Integumentary: Reports: rash Neurological: Denies: headache, weakness, numbness, memory loss Endocrine: Denies: fatigue, heat or cold intolerance Hematologic/Lymphatic: Denies: easy bruising, lymphadenopathy Allergic/Immunologic: Denies: urticaria, itchy eyes Psychiatry Exam - Constitutional Vitals: Temp Pulse Resp BP Pulse Ox 97.8 F 64 16 118/74 99 03/13/18 07:53 03/13/18 07:53 03/13/18 07:53 03/13/18 07:53 03/13/18 07:53 General appearance: age & developmentally appropriate - Musculoskeletal Gait: normal Station: relaxed Strength & Tone: normal for patient - Psychiatric Patient Orientation: Yes Person, Yes Time, Yes Place Level of alertness: Alert Behavior: calm, cooperative Psychomotor activity: Normal Eye Contact: Maintains Eye Contact Mood Description: Euthymic/stable Affect description: congruent with mood, full range Speech Volume: Normal Speech pattern: normal rate, normal rhythm, normal tone, fluent, spontaneous Language & Vocabulary: consistent with education Thought Process: Linear, Goal Oriented Thought Content: No Suicidal ideation, No Homicidal ideation, No Overt delusions Perceptual Disturbances: No Auditory hallucinations, No Visual hallucinations Attention Span Ability: Capable of Focused Attention Memory Description: Immediate Intact, Recent Impaired, Remote Intact Patient Reliability: Questionable Historian Fund of knowledge: Yes abstraction ability, Yes aware of current events Intelligence Estimate: Below Average Judgment: Limited Insight: Partial Results - Labs Labs: Laboratory Last Values WBC 9.8 K/mcL (4.3-11.1) 03/11/18 22:24 RBC 4.88 M/mcL (4.19-5.50) 03/11/18 22:24 Hgb 13.4 g/dL (12.9-16.9) 03/11/18 22:24 Hct 38.9 % (37.5-50.1) 03/11/18 22:24 MCV 79.7 fL (83.0-100.0) L 03/11/18 22:24 MCH 27.5 pg (28.0-33.3) L 03/11/18 22:24 MCHC 34.4 g/dL (31.6-35.5) 03/11/18 22:24 RDW 13.5 % (11.5-14.5) 03/11/18 22:24 Plt Count 361 K/mcL (140-400) 03/11/18 22:24 MPV 10.2 fL (9.4-12.4) 03/11/18 22:24 Immature Gran % 0.2 % (0-4) 03/11/18 22:24 Seg Neutrophils % 63.6 % 03/11/18 22:24 Lymphocytes % 24.5 % 03/11/18 22:24 Monocytes % 10.2 % 03/11/18 22:24 Eosinophils % 1.2 % 03/11/18 22:24 Basophils % 0.3 % 03/11/18 22:24 Neutrophils # 6.2 K/mcL (1.6-8.9) 03/11/18 22:24 Lymphocytes # 2.4 K/mcL (0.6-4.6) 03/11/18 22:24 Monocytes # 1.0 K/mcL (0.0-1.3) 03/11/18 22:24 Eosinophils # 0.1 K/mcL (0.0-0.6) 03/11/18 22:24 Basophils # 0.0 K/mcL (0.0-0.2) 03/11/18 22:24 Sodium 142 mEq/L (136-145) 03/12/18 04:58 Potassium 3.5 mEq/L (3.5-5.1) 03/12/18 04:58 Chloride 111 mEq/L (98-107) H 03/12/18 04:58 Carbon Dioxide 24 mEq/L (23-29) 03/12/18 04:58 BUN 11 mg/dL (6-20) 03/12/18 04:58 Creatinine 0.96 mg/dL (0.70-1.30) 03/12/18 04:58 Est GFR ( Amer) > 60 (> 60) 03/12/18 04:58 Est GFR (Non-Af Amer) > 60 (> 60) 03/12/18 04:58 BUN/Creatinine Ratio 11 (6-26) 03/12/18 04:58 Glucose 109 mg/dL (70-105) H 03/12/18 04:58 Calculated Osmolality 294 (280-300) 03/12/18 04:58 Lactic Acid 1.0 mmol/L (0.5-2.2) 03/12/18 02:48 Calcium 9.1 mg/dL (8.6-10.3) 03/12/18 04:58 Magnesium 2.0 mg/dL (1.6-2.6) 03/11/18 22:24 Total Bilirubin 0.7 mg/dL (0.3-1.0) 03/12/18 04:58 AST 19 Units/L (13-39) 03/12/18 04:58 ALT 13 Units/L (7-52) 03/12/18 04:58 Alkaline Phosphatase 46 Units/L (34-104) 03/12/18 04:58 Creatine Kinase 80 Units/L (30-223) 03/12/18 04:58 Serum Total Protein 6.7 g/dL (6.4-8.9) 03/12/18 04:58 Albumin 3.5 g/dL (3.5-5.7) 03/12/18 04:58 Globulin 3.2 g/dL (2.4-3.5) 03/12/18 04:58 Albumin/Globulin Ratio 1.1 (1.1-2.2) 03/12/18 04:58 Urine Color Yellow (Yellow) 03/11/18 22:06 Urine Clarity Clear (Clear) 03/11/18 22:06 Urine pH 7.5 pH Units (5.0-8.0) 03/11/18 22:06 Ur Specific [place] 1.009 (1.010-1.025) L 03/11/18 22:06 Urine Protein 100 mg/dL (Neg-Trace) H 03/11/18 22:06 Urine Glucose (UA) Normal mg/dL (Normal) 03/11/18 22:06 Urine Ketones Trace mg/dL (Negative) H 03/11/18 22:06 Urine Blood Negative (Negative) 03/11/18 22:06 Urine Nitrite Negative (Negative) 03/11/18 22:06 Urine Bilirubin Small (Negative) H 03/11/18 22:06 Urine Urobilinogen Normal mg/dL (Normal) 03/11/18 22:06 Ur Leukocyte Esterase Negative (Negative) 03/11/18 22:06 Urine Microscopic RBC 0-3 per hpf (0-3) 03/11/18 22:06 Urine Microscopic WBC 5-15 per hpf (0-3) H 03/11/18 22:06 Ur Squamous Epith Cells Many per lpf (None-Few) H 03/11/18 22:06 Urine Bacteria None Seen per hpf (None-Few) 03/11/18 22:06 Hyaline Casts None Seen per lpf (None-Few) 03/11/18 22:06 Urine Sperm Present 03/11/18 22:06 Ur Culture Indicated? NO (NO) 03/11/18 22:06 Urine Opiates Screen Positive ng/mL (Miuhaa=455) H 03/11/18 22:05 Ur Barbiturates Screen Negative ng/mL (Eulsis=376) 03/11/18 22:05 Ur Phencyclidine Scrn Negative ng/mL (Cutoff=25) 03/11/18 22:05 Ur Amphetamines Screen Positive ng/mL (Ahpocy=8434) H 03/11/18 22:05 U Benzodiazepines Scrn Negative ng/mL (Tignpy=425) 03/11/18 22:05 Urine Cocaine Screen Positive ng/mL (Cutoff= 300) H 03/11/18 22:05 U Marijuana (THC) Screen Positive ng/mL (Cutoff = 50) H 03/11/18 22:05 Ur Drug Screen Interp See Below 03/11/18 22:05 Hep Bs Antigen Nonreactive (Nonreactive) 03/12/18 04:58 HIV Ag/Ab Combo Qual Nonreactive (Nonreactive) 03/12/18 04:58 Consult Discharge Plan - Plan Referrals: NONE,PCP [Primary Care Provider] -
[2018-03-14 02:46] LABS: Hepatitis B Core IgM Nonreactive (Nonreactive)
[2018-03-14 04:13] LABS: Hepatitis A Antibody IgM Grayzone (Nonreactive); Hepatitis C Virus Antibody Reactive (Nonreactive)
--- NOTE | 2018-03-14 17:42 | Electrocardiograph Report ---
[address] [place], [place] [address] Test Date: 2018-03-11 Pat Name: Giancarlo Conrad Department: EXAM9 Room: 3B43 Gender: M Litigator: : 1990 Requested By: Kameron Lay Order Number: [id number] Reading MD: Mi Park Measurements Intervals [place] Rate: 115 P: 74 SD: 122 QRS: 43 QRSD: 82 T: 38 QT: 339 QTc: 469 Interpretive Statements Sinus tachycardia Consider right atrial enlargement Electronically Signed On 03-14-2018 17:41:27 EDT by Mi Park
== END 2018-03-13 09:55 | disposition left against medical advice (07) ==
LOC: EMEROOARM 21:52 → 3BNU 21:52
PROVIDERS: ADMIT Family Medicine; ATTEND Family Medicine